=== PATIENT | female | born 1950 | race Caucasian/White ===

== ENCOUNTER → 2017-09-25 | Outpatient (CLI) | payer BC ==
[~2017-09-25] MED LIST: BSP/5 PO; CLON0.2T PO; DIPH25CA5 PO; LEVO200T6 PO; TIMO0.2528 OPL; ZIPR1CAP6 PO
== END | disposition home or self-care (01) ==
LOC: C.MAMM 14:58
PROVIDERS: ATTEND Internal Medicine Hematology & Oncology
DX: C50.919 Malignant neoplasm of unspecified site of unspecified female breast (principal)

== ENCOUNTER → 2017-10-02 | Outpatient (CLI) | payer BC ==
--- NOTE | 2017-10-02 19:32 | DIAGNOSTIC IMAGING REPORT ---
R FOOT MIN 3 VIEWS ROUTINE CLINICAL HISTORY: 67 years-old Female presenting with M25.571 PAIN IN RIGHT ANKLE AND JOINTS OF FOOT. TECHNIQUE: Frontal, oblique, and lateral views of the right foot were obtained. COMPARISON: None. FINDINGS: Screw fixation across the medial malleolus noted. Extensive degenerative changes in the ankle, hindfoot and hindfoot-midfoot junction. More mild degenerative changes evident at the first metatarsophalangeal joint. No acute fracture or malalignment. No radiographic soft tissue abnormality. IMPRESSION: 1. No acute osseous injury. 2. Extensive degenerative changes at the ankle, hindfoot, and hindfoot-junction. Please see separately dictated radiographs of the ankle. 3. Mild degenerative changes of the first metatarsophalangeal joint. Electronically signed by: Mateo Funez M.D. 10/02/2017 7:31 PM Dictated Date/Time: 10/02/2017 7:29 PM
--- NOTE | 2017-10-02 20:32 | DIAGNOSTIC IMAGING REPORT ---
R ANKLE MIN 3 VIEWS ROUTINE CLINICAL HISTORY: 67 years-old Female presenting with M25.571 PAIN IN RIGHT ANKLE AND JOINTS OF FOOT. TECHNIQUE: Frontal, mortise, and lateral views of the right ankle were obtained. COMPARISON: 06/10/2010. FINDINGS: Fixation across the medial malleolus unchanged. There has been significant interval worsening of degenerative changes of the ankle mortise with severe joint space loss and a [id number] appearance with subchondral sclerosis and cystic change. There is also significant degenerative change at the hindfoot and hindfoot-midfoot. Osteopenia suspected. No acute fracture or malalignment. No radiographic soft tissue abnormality. IMPRESSION: 1. 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 2. Allowing for suspected osteopenia, no acute osseous injury. Electronically signed by: Mateo Funez M.D. 10/02/2017 8:30 PM Dictated Date/Time: 10/02/2017 8:28 PM
== END | disposition home or self-care (01) ==
LOC: C.RAD 18:46
PROVIDERS: ATTEND Family Medicine
DX: M25.571 Pain in right ankle and joints of right foot (principal); M79.671 Pain in right foot; Z88.0 Allergy status to penicillin; Z88.1 Allergy status to other antibiotic agents

== ENCOUNTER 2021-02-16 14:55 | Observation (INO) ==
[2021-02-16 15:27] LABS: Hematocrit (blood only) 40.4 % (37-47); Hemoglobin 13.6 g/dL (12.0-16.0); Mean Corpuscular Hemoglobin 30.5 pg (25-34); Mean Corpuscular Hgb Conc 33.7 g/dL (32-36); Mean Corpuscular Volume 90.6 fL (80-100); Platelet Count 254 K/uL (130-400); RDW Standard Deviation 46.7 fL (36.4-46.3); Red Blood Count 4.46 M/uL (4.2-5.4); White Blood Count 6.19 K/uL (4.8-10.8)
[2021-02-16 15:31] LABS: iSTAT Hemoglobin 13.9 g/dl (12.0-16.0); iSTAT Ionized Calcium 1.26 mmol/l (1.12-1.32); iSTAT Potassium 4.6 mmol/L (3.3-5.0)
[2021-02-16 15:38] LABS: Partial Thromboplastin Time 25.1 Seconds (21.0-31.0); Prothrombin Time 9.8 Seconds (9.0-12.0)
[2021-02-16 15:48] LABS: Alanine Aminotransferase 22 U/L (12-78); BUN Creatinine Ratio 25.2 (10-20); Blood Urea Nitrogen 24 mg/dl (7-18); Calcium 10.3 mg/dl (8.5-10.1); Carbon Dioxide 26 mmol/L (21-32); Chloride 107 mmol/L (98-107); Creatinine Clr Calc Pharmacy 51.3 ml/min; Est GFR (African American) 69.4 ml/min; Est GFR (Non-African American) 59.8 ml/min; Glucose 93 mg/dl (70-99); Magnesium 2.2 mg/dl (1.8-2.4); Potassium 4.6 mmol/L (3.5-5.1); Sodium 137 mmol/L (136-145)
[2021-02-16 15:54] LABS: Albumin Globulin Ratio 1.4 (0.9-2); Alkaline Phosphatase 59 U/L (45-117); Aspartate Aminotransferase 12 U/L (15-37); Bilirubin,Total 0.5 mg/dl (0.2-1); Globulin 2.8 gm/dl (2.5-4.0); Total Protein 6.8 gm/dl (6.4-8.2)
--- NOTE | 2021-02-16 16:20 | Emergency Department Note ---
ED Visit Note I have seen and evaluated the patient. I have discussed the case with Dr. Lam and agree with his plan as documented. Sean Clemons MD PGY-3 . Resident Activity Tracking Resident Involvement: Resident Care Provided Care Provided: Adult ED
--- NOTE | 2021-02-16 16:42 | CT Scan Report ---
CT head/brain wo con CLINICAL HISTORY: 70 years-old Female with Stroke Alert. Acute strokelike symptoms TECHNIQUE: Multiple axial CT images of the head were obtained without contrast. A dose lowering tech nique was utilized adhering to the principles of ALARA. CT DOSE: 537.48 mGy.cm COMPARISON: Head CT 02/21/2015 FINDINGS: No acute intracranial hemorrhage, midline shift, intracranial mass, hydrocephalus, territorial ischem ia or abnormal extra-axial collection. Mild age-related involutional changes. White matter hypodensit ies suggest chronic microvascular ischemic disease. Subcentimeter hypodense focus of the right fronta l lobe centrum semiovale on image 19 series 2 is new from comparison. Senescent calcifications of the basal ganglia. The calvarium is intact. The paranasal sinuses, mastoid air cells, and middle ear cavities are clear . IMPRESSION: 1. No acute intracranial hemorrhage, midline shift or acute territorial infarct. 2. Subcentimeter hypodense focus of the right frontal lobe centrum semiovale is new from 02/21/2015 a nd is suggestive of a small age-indeterminate infarct. ACT 112: Negative or not required by law. The above report was generated using voice recognition software. It may contain grammatical, syntax o r spelling errors. Electronically signed by: Elliott Abernathy M.D. 02/16/2021 4:40 PM
--- NOTE | 2021-02-16 16:47 | Emergency Department Note ---
Impression & Plan TIA (transient ischemic attack) ED Provider Note NAME: BRAYAN DUNAWAY AGE: 70 SEX: F : 1950 ARRIVES VIA: Walk-In INFORMANT: Patient, ED PROVIDER(S): Daniel Lam DO CHIEF COMPLAINT: Decreased vision HPI: The patient is a 70-year-old female who presented to the emergency department for an evaluation of decreased vision in her right eye. She states that the symptoms began this morning at approximately 930 when she was doing yoga. She states she was not overly exerting herself. She denies having any chest pain. She denies having any headache. The patient first went to see her hub cutter. She was sent to the emergency department for further evaluation. The patient was felt to be suffering from a transient retinal artery occlusion. The patient at this time denies having any symptoms. She states her vision is clear. She denies having any fever. She is had no recent trauma. She did not see her family doctor for the symptoms. The patient states that she has been compliant with her usual outpatient medication regimen. She denies having any runny nose or injection in the eye. ROS: See above HPI for pertinent positives & negatives. A total of 10 systems reviewed and were otherwise negative. PAST MEDICAL HISTORY: See Below PAST SURGICAL HISTORY: See Below FAMILY HISTORY: See Below SOCIAL HISTORY: See Below HOME MEDICATIONS: See Below ALLERGIES: See Below VITALS: See Below PHYSICAL EXAMINATION: GENERAL: Patient is awake alert in no acute distress patient is resting comfortably and showing no signs of anxiety EYES: The conjunctivae are clear. The pupils were dilated and minimally reactive bilaterally. EARS, NOSE, MOUTH AND THROAT: The nose is without any evidence of any deformity. NECK: The neck is nontender and supple. RESPIRATORY: Normal respiratory effort is noted there is no evidence of wheezing rhonchi or rales CARDIOVASCULAR: Regular rate and rhythm noted there no murmurs rubs or gallops normal S1 normal S2. GASTROINTESTINAL: The abdomen is soft. Abdomen is nontender. MUSCULOSKELETAL/EXTREMITIES: There is no evidence of gross deformity full range of motion is noted in the hips and shoulders. SKIN: There is no obvious evidence of any rash. There are no petechiae, pallor or cyanosis noted. NEUROLOGIC: Patient is awake alert and oriented x3 strength is symmetric patellar reflexes are 2+ bilaterally MEDICAL DECISION MAKING: The patient is a 70-year-old female who presented to the emergency department for an evaluation of diminished vision in her right eye. The diminished vision was not prolonged and resolved spontaneously. She did go to see her eye doctor and after a dilated funduscopic exam she was sent to the emergency department for further evaluation and possible TIA. The patient's work-up did not reveal atrial fibrillation. Angiography of the head and neck did not reveal any significant stenosis. She was found to have signs of a stroke on the CT which was age-indeterminate. For this reason I do think this could be a high risk TIA. We discussed her case with the on-call neurologist, Dr. Pacheco. He did recommend further work-up and the patient was offered inpatient work-up for this. The patient was agreeable. The case was discussed with the on-call [facility] hospitalist. They will evaluate the patient in the emergency department for further management and disposition. Triage Nursing notes reviewed. Prior medical records reviewed Vital Signs: reviewed and remarkable for elevated blood pressure. Differential diagnosis: Conjunctivitis, trauma, corneal abrasion, hyphema, glaucoma, iritis, corneal ulcer, dendrite, CRAO, CRVO, vitreous detachment, retinal detachment, as well as other pathologies. ER treatment provided: See below Diagnostics interpreted by me: ECG: EKG was obtained in the emergency department. My interpretation is normal sinus rhythm at 74 bpm. There is no ectopy. There is no acute ST segment abnormalities noted. This was compared to a tracing from June 062015. No significant changes were noted. Cardiac Monitoring: An order was placed for continuous cardiac monitoring. The monitor shows a rate of 70 BPM with sinus rhythm. Laboratory studies: As stated above and show below. Imaging studies: See below Consultation(s): [facility] They will evaluate the patient in the emergency department. Past Med/Surg History Medical History (Updated 02/17/21 @ 09:31 by Jori Pacheco MD) History of orthopedic surgery Hypertension Hypothyroidism Mood disorder Pancreatitis UTI (urinary tract infection) Surgical History (Updated 02/16/21 @ 20:53 by Ling Clemons DO) History of back surgery History of cholecystectomy History of foot surgery History of rotator cuff surgery Social History Smoking Status: Never smoker Hx Alcohol Use: No Hx Substance Use: No Preferred Language: Lithuanian Communication Ability: Effective Production Planning Supervisor Required: No Beliefs That Will Affect Care: None Current Living Situation: Spouse Feels Safe at Home: Yes Assistive Devices: None Allergies Allergies Allergy/AdvReac Type Severity Reaction Status Date / Time Cephalosporins Allergy Intermediate "SWELLING" Verified 02/16/21 20:16 Penicillins Allergy Intermediate "SWELLING" Verified 02/16/21 20:16 clindamycin Allergy Unknown rash Verified 02/16/21 20:16 Home Meds Home Medications Medication Instructions Recorded Confirmed alendronate 70 mg tablet 70 mg PO WK 02/16/21 02/16/21 amlodipine 2.5 mg tablet 2.5 mg PO DAILY 02/16/21 02/16/21 anastrozole 1 mg tablet 1 mg PO DAILY 02/16/21 02/16/21 bupropion HCl 100 mg tablet 100 mg PO BID 02/16/21 02/16/21 buspirone 30 mg tablet 30 mg PO BID 02/16/21 02/16/21 citalopram 40 mg tablet 80 mg PO QAM 02/16/21 02/16/21 levothyroxine 100 mcg tablet 100 mcg PO DAILY 02/16/21 02/16/21 meloxicam 15 mg tablet 15 mg PO DAILY 02/16/21 02/16/21 metformin 850 mg tablet 850 mg PO BID 02/16/21 02/16/21 risperidone 1 mg tablet 1 mg PO QAM 02/16/21 02/16/21 risperidone 1 mg tablet 2 mg PO QPM 02/16/21 02/16/21 ziprasidone HCl 80 mg capsule 80 mg PO .DAILY WITH DAIJA MEAL 02/16/21 02/16/21 Previous Rx's Medication Instructions Recorded aspirin 81 mg tablet,delayed 81 mg PO DAILY #30 tab 02/17/21 release (Aspirin Low Dose) Results & Data (ED) Vital Signs Vital Signs - 24 hr 02/16/21 16:57 02/16/21 18:00 02/16/21 19:27 Temperature Temperature Source Pulse Rate [Right Finger] 70 70 80 Pulse Rhythm [Right Finger] Regular Regular Regular Pulse Strength [Right Finger] Normal Normal Normal Respiratory Rate 18 18 17 Respiratory Effort / Characteristics Non-Labored Non-Labored Non-Labored Respiratory Depth Normal Normal Normal Respiratory Pattern Regular Regular Regular Blood Pressure [Right Arm] 178/85 H 177/85 H 157/90 H Blood Pressure Mean [Right Arm] 116 115 112 Blood Pressure Position [Right Arm] Lying Lying Lying Pulse Oximetry 100 98 99 Oxygen Delivery Method Room Air Room Air Room Air 02/16/21 20:06 Temperature 36.8 C Temperature Source Oral Pulse Rate [Right Finger] 79 Pulse Rhythm [Right Finger] Pulse Strength [Right Finger] Respiratory Rate 21 Respiratory Effort / Characteristics Respiratory Depth Respiratory Pattern Blood Pressure [Right Arm] 175/76 H Blood Pressure Mean [Right Arm] 109 Blood Pressure Position [Right Arm] Pulse Oximetry 97 Oxygen Delivery Method Room Air Home Medications Current Medication List: was personally reviewed by me Laboratory Data Attestation: I reviewed the patient's lab results. Result diagrams: 02/17/21 05:49 02/17/21 05:49 Lab Results 02/16/21 02/16/21 02/16/21 Range/Units 15:16 15:16 15:16 WBC 6.19 (4.8-10.8) K/uL RBC 4.46 (4.2-5.4) M/uL Hgb 13.6 (12.0-16.0) g/dL POC Hgb (12.0-16.0) g/dl Hct 40.4 (37-47) % POC Hct (37-47) % MCV 90.6 (80-100) fL MCH 30.5 (25-34) pg MCHC 33.7 (32-36) g/dL RDW Std Deviation 46.7 H (36.4-46.3) fL RDW Coeff of Devyn 14.0 (11.5-14.5) % Plt Count 254 (130-400) K/uL MPV 10.0 (7.4-10.4) fL ESR (0-30) mm/hr PT 9.8 (9.0-12.0) Seconds INR 1.0 (0.9-1.1) APTT 25.1 (21.0-31.0) Seconds PTT Ratio 1.0 POC Sodium (135-144) mmol/L Sodium 137 (136-145) mmol/L POC Potassium (3.3-5.0) mmol/L Potassium 4.6 (3.5-5.1) mmol/L POC Chloride (101-112) mmol/L Chloride 107 (98-107) mmol/L Carbon Dioxide 26 (21-32) mmol/L POC Total CO2 (24-31) mmol/L Anion Gap 5.0 (3-11) POC Anion Gap (16-25) mmol/L POC BUN (7-18) mg/dl BUN 24 H (7-18) mg/dl Creatinine 0.95 (0.6-1.2) mg/dl POC Creatinine (0.6-1.3) mg/dl Est Cr Clr Drug Dosing 51.3 ml/min Est GFR ( Amer) 69.4 ml/min Est GFR (Non-Af Amer) 59.8 ml/min BUN/Creatinine Ratio 25.2 H (10-20) Glucose 93 (70-99) mg/dl POC Glucose (other) (70-99) mg/dl Calcium 10.3 H (8.5-10.1) mg/dl POC Ioniz Calcium Jacqui (1.12-1.32) mmol/l Magnesium 2.2 (1.8-2.4) mg/dl Total Bilirubin 0.5 (0.2-1) mg/dl AST 12 L (15-37) U/L ALT 22 (12-78) U/L Alkaline Phosphatase 59 (45-117) U/L Troponin I < 0.015 (0-0.045) ng/ml C-Reactive Protein (0-0.29) mg/dl Total Protein 6.8 (6.4-8.2) gm/dl Albumin 4.0 (3.4-5.0) gm/dl Globulin 2.8 (2.5-4.0) gm/dl Albumin/Globulin Ratio 1.4 (0.9-2) COVID-19 Eval Order SARS-CoV-2 (PCR) (Negative) 02/16/21 02/16/21 02/16/21 Range/Units 15:20 16:15 16:15 WBC (4.8-10.8) K/uL RBC (4.2-5.4) M/uL Hgb (12.0-16.0) g/dL POC Hgb 13.9 (12.0-16.0) g/dl Hct (37-47) % POC Hct 41 (37-47) % MCV (80-100) fL MCH (25-34) pg MCHC (32-36) g/dL RDW Std Deviation (36.4-46.3) fL RDW Coeff of Devyn (11.5-14.5) % Plt Count (130-400) K/uL MPV (7.4-10.4) fL ESR 5 (0-30) mm/hr PT (9.0-12.0) Seconds INR (0.9-1.1) APTT (21.0-31.0) Seconds PTT Ratio POC Sodium 138 (135-144) mmol/L Sodium (136-145) mmol/L POC Potassium 4.6 (3.3-5.0) mmol/L Potassium (3.5-5.1) mmol/L POC Chloride 102 (101-112) mmol/L Chloride (98-107) mmol/L Carbon Dioxide (21-32) mmol/L POC Total CO2 24 (24-31) mmol/L Anion Gap (3-11) POC Anion Gap 17.0 (16-25) mmol/L POC BUN 23 H (7-18) mg/dl BUN (7-18) mg/dl Creatinine (0.6-1.2) mg/dl POC Creatinine 1.0 (0.6-1.3) mg/dl Est Cr Clr Drug Dosing ml/min Est GFR ( Amer) ml/min Est GFR (Non-Af Amer) ml/min BUN/Creatinine Ratio (10-20) Glucose (70-99) mg/dl POC Glucose (other) 90 (70-99) mg/dl Calcium (8.5-10.1) mg/dl POC Ioniz Calcium Jacqui 1.26 (1.12-1.32) mmol/l Magnesium (1.8-2.4) mg/dl Total Bilirubin (0.2-1) mg/dl AST (15-37) U/L ALT (12-78) U/L Alkaline Phosphatase (45-117) U/L Troponin I (0-0.045) ng/ml C-Reactive Protein < 0.29 (0-0.29) mg/dl Total Protein (6.4-8.2) gm/dl Albumin (3.4-5.0) gm/dl Globulin (2.5-4.0) gm/dl Albumin/Globulin Ratio (0.9-2) COVID-19 Eval Order SARS-CoV-2 (PCR) (Negative) 02/16/21 02/16/21 Range/Units 17:50 17:50 WBC (4.8-10.8) K/uL RBC (4.2-5.4) M/uL Hgb (12.0-16.0) g/dL POC Hgb (12.0-16.0) g/dl Hct (37-47) % POC Hct (37-47) % MCV (80-100) fL MCH (25-34) pg MCHC (32-36) g/dL RDW Std Deviation (36.4-46.3) fL RDW Coeff of Devyn (11.5-14.5) % Plt Count (130-400) K/uL MPV (7.4-10.4) fL ESR (0-30) mm/hr PT (9.0-12.0) Seconds INR (0.9-1.1) APTT (21.0-31.0) Seconds PTT Ratio POC Sodium (135-144) mmol/L Sodium (136-145) mmol/L POC Potassium (3.3-5.0) mmol/L Potassium (3.5-5.1) mmol/L POC Chloride (101-112) mmol/L Chloride (98-107) mmol/L Carbon Dioxide (21-32) mmol/L POC Total CO2 (24-31) mmol/L Anion Gap (3-11) POC Anion Gap (16-25) mmol/L POC BUN (7-18) mg/dl BUN (7-18) mg/dl Creatinine (0.6-1.2) mg/dl POC Creatinine (0.6-1.3) mg/dl Est Cr Clr Drug Dosing ml/min Est GFR ( Amer) ml/min Est GFR (Non-Af Amer) ml/min BUN/Creatinine Ratio (10-20) Glucose (70-99) mg/dl POC Glucose (other) (70-99) mg/dl Calcium (8.5-10.1) mg/dl POC Ioniz Calcium Jacqui (1.12-1.32) mmol/l Magnesium (1.8-2.4) mg/dl Total Bilirubin (0.2-1) mg/dl AST (15-37) U/L ALT (12-78) U/L Alkaline Phosphatase (45-117) U/L Troponin I (0-0.045) ng/ml C-Reactive Protein (0-0.29) mg/dl Total Protein (6.4-8.2) gm/dl Albumin (3.4-5.0) gm/dl Globulin (2.5-4.0) gm/dl Albumin/Globulin Ratio (0.9-2) COVID-19 Eval Order Covid19 at [facility] SARS-CoV-2 (PCR) NEGATIVE (Negative) Administered Medications Aspirin (Aspirin 81 Mg Ectab) 81 mg PO DAILY [facility]ANG Stop: 03/19/21 08:59 Last Admin: 02/17/21 09:41 Dose: 81 mg Documented by: [id number] Cosigned by: [id number] Atorvastatin Calcium (Atorvastatin 40 Mg Tab) 40 mg PO QAM [facility] Stop: 03/19/21 08:59 Last Admin: 02/17/21 09:40 Dose: 40 mg Documented by: [id number] Cosigned by: [id number] Buspirone HCl (Buspirone 15 Mg Tab) 30 mg PO BID [facility] Stop: 03/18/21 22:07 Last Admin: 02/17/21 09:39 Dose: 30 mg Documented by: [id number] Cosigned by: [id number] Admin: 02/16/21 23:26 Dose: 30 mg Documented by: [id number] Citalopram Hydrobromide (Citalopram 40 Mg Tab) 80 mg PO QAM [facility] Stop: 03/19/21 08:59 Last Admin: 02/17/21 09:40 Dose: 80 mg Documented by: [id number] Cosigned by: [id number] Levothyroxine Sodium (Levothyroxine Sodium 100 Mcg Tablet) 100 mcg PO DAILYBB [facility] Stop: 03/19/21 06:29 Last Admin: 02/17/21 05:22 Dose: 100 mcg Documented by: [id number] Risperidone (Risperidone 1 Mg Tablet) 1 mg PO QAM [facility] Stop: 03/19/21 08:59 Last Admin: 02/17/21 09:40 Dose: 1 mg Documented by: [id number] Cosigned by: [id number] Risperidone (Risperidone 2 Mg Tablet) 2 mg PO QPM [facility] Stop: 03/18/21 22:07 Last Admin: 02/16/21 23:26 Dose: 2 mg Documented by: [id number] Discontinued Medications Aspirin (Aspirin Chew 324 Mg) 324 mg PO NOW STA Stop: 02/16/21 18:34 Last Admin: 02/16/21 19:26 Dose: 324 mg Documented by: [id number] Gadobutrol (Gadobutrol 65ml Vial) 7.6 ml IV ONCE ONE Stop: 02/16/21 23:06 Last Admin: 02/16/21 23:05 Dose: 7.6 ml Documented by: [id number] Influenza Virus Vaccine (Influenza Vaccine-High Dose (Fluzone-Hd) Pf 65+ 0.7 Ml Syr) 0.7 ml IM .ONCE ONE Stop: 02/17/21 08:01 Last Admin: 02/17/21 12:04 Dose: 0.7 ml Documented by: [id number] Ioversol (Optiray 320 125ml) 116 ml IV ONCE ONE Stop: 02/16/21 17:09 Last Admin: 02/16/21 17:08 Dose: 116 ml Documented by: [id number] Pneumococcal Polyvalent Vaccine (Pneumococcal Polysaccharide Vaccine 25mcg/0.5ml Vial/Syr) 25 mcg IM .ONCE ONE Stop: 02/17/21 08:01 Last Admin: 02/17/21 12:05 Dose: 25 mcg Documented by: [id number] Imaging Data Radiologist's Impression: Chest X-Ray 02/16/21 15:06 XR chest 1V portable HISTORY: 70 years-old Female stroke alert acute strokelike symptoms COMPARISON: Chest radiograph 06/06/2015 TECHNIQUE: Portable AP view of the chest FINDINGS: Cardiomediastinal and hilar silhouettes are within normal limits. No pneumothorax, pleural effusion, airspace consolidation or overt pulmonary edema. Degenerative changes of the shoulders and spine. Surgical clips project over the chest. Cervical spinal fusion hardware. IMPRESSION: No acute process. ACT 112: Negative or not required by law. The above report was generated using voice recognition software. It may contain grammatical, syntax or spelling errors. Electronically signed by: Elliott Abernathy M.D. 02/16/2021 4:[address] 02/16/21 15:06 CT head/brain wo con CLINICAL HISTORY: 70 years-old Female with Stroke Alert. Acute strokelike symptoms TECHNIQUE: Multiple axial CT images of the head were obtained without contrast. A dose lowering technique was utilized adhering to the principles of ALARA. CT DOSE: 537.48 mGy.cm COMPARISON: Head CT 02/21/2015 FINDINGS: No acute intracranial hemorrhage, midline shift, intracranial mass, hydrocephalus, territorial ischemia or abnormal extra-axial collection. Mild age-related involutional changes. White matter hypodensities suggest chronic microvascular ischemic disease. Subcentimeter hypodense focus of the right frontal lobe centrum semiovale on image 19 series 2 is new from comparison. Senescent calcifications of the basal ganglia. The calvarium is intact. The paranasal sinuses, mastoid air cells, and middle ear cavities are clear. IMPRESSION: 1. No acute intracranial hemorrhage, midline shift or acute territorial infarct. 2. Subcentimeter hypodense focus of the right frontal lobe centrum semiovale is new from 02/21/2015 and is suggestive of a small age-indeterminate infarct. ACT 112: Negative or not required by law. The above report was generated using voice recognition software. It may contain grammatical, syntax or spelling errors. Electronically signed by: Elliott Abernathy M.D. 02/16/2021 4:40 PM Head CTA 02/16/21 16:42 HEAD & NECK CTA HISTORY: Temporary Right eye blindness. TECHNIQUE: Multiaxial CT images of the head were performed following the intravenous administration of contrast to evaluate the major cerebral vessels. Multiaxial CT images of the neck were also performed following the intravenous administration of contrast to evaluate the major cervical vessels. Maximum intensity projection images were also obtained. A dose lowering technique was utilized adhering to the principles of ALARA. COMPARISON: Head CT 02/16/2021. FINDINGS: Please refer to the same day head CT for further evaluation of the brain pa renchyma. Visualized intracranial internal carotid arteries, distal vertebral arteries, and basilar artery are widely patent. There is no significant stenosis, occlusion, or aneurysm seen within the bilateral ACAs, MCAs, or plastics process hand. The major dural venous sinuses are patent. Mild calcified plaque within the bilateral carotid siphons. The aortic arch and proximal great vessels are widely patent. There is no significant stenosis, occlusion, or dissection identified within the bilateral common carotid, internal carotid, or vertebral arteries. Cervical spinal fusion hardware is noted. Moderate right and mild left carotid bifurcation calcification. IMPRESSION: 1. No significant stenosis, occlusion, or aneurysm within the [place]. 2. No significant stenosis, occlusion, or dissection identified within the car otid or vertebral arteries. 3. Please refer to the same day head CT for further evaluation of the brain parenchyma. ACT 112: Negative or not required by law. Electronically signed by: Umer Chaves M.D. 02/16/2021 5:13 PM Neck CTA 02/16/21 16:42 HEAD & NECK CTA HISTORY: Temporary Right eye blindness. TECHNIQUE: Multiaxial CT images of the head were performed following the intravenous administration of contrast to evaluate the major cerebral vessels. Multiaxial CT images of the neck were also performed following the intravenous administration of contrast to evaluate the major cervical vessels. Maximum intensity projection images were also obtained. A dose lowering technique was utilized adhering to the principles of ALARA. COMPARISON: Head CT 02/16/2021. FINDINGS: Please refer to the same day head CT for further evaluation of the brain parenchyma. Visualized intracranial internal carotid arteries, distal vertebral arteries, and basilar artery are widely patent. There is no significant stenosis, occlusion, or aneurysm seen within the bilateral ACAs, MCAs, or plastics process hand. The major dural venous sinuses are patent. Mild calcified plaque within the bilateral carotid siphons. The aortic arch and proximal great vessels are widely patent. There is no significant stenosis, occlusion, or dissection identified within the bilateral common carotid, internal carotid, or vertebral arteries. Cervical spinal fusion hardware is noted. Moderate right and mild left carotid bifurcation calcification. IMPRESSION: 1. No significant stenosis, occlusion, or aneurysm within the [place]. 2. No significant stenosis, occlusion, or dissection identified within the carotid or vertebral arteries. 3. Please refer to the same day head CT for further evaluation of the brain parenchyma. ACT 112: Negative or not required by law. Electronically signed by: Umer Chaves M.D. 02/16/2021 5:13 PM Discharge Plan Visit Data Chief Complaint: Visual Disturbance Stated Complaint: TRANSIENT RETINAL ARTERY OCCLUSION, RT EYE ED Provider: Daniel Lam ED Midlevel Provider: Sean Clemons I. Discharge Problem: TIA (transient ischemic attack) Patient Disposition: Admitted As Inpatient Discharge Instructions Interventions: ED Discharge Assessment Last Done: 02/16/21 21:22
[2021-02-16] MEDS ORDERED: OPTIRAY 320 125ml IV ONE (17:08)
--- NOTE | 2021-02-16 17:15 | CT Scan Report ---
HEAD & NECK CTA HISTORY: Temporary Right eye blindness. TECHNIQUE: Multiaxial CT images of the head were performed following the intravenous administration o f contrast to evaluate the major cerebral vessels. Multiaxial CT images of the neck were also perform ed following the intravenous administration of contrast to evaluate the major cervical vessels. Maxim um intensity projection images were also obtained. A dose lowering technique was utilized adhering to the principles of ALARA. COMPARISON: Head CT 02/16/2021. FINDINGS: Please refer to the same day head CT for further evaluation of the brain parenchyma. Visualized intra cranial internal carotid arteries, distal vertebral arteries, and basilar artery are widely patent. T here is no significant stenosis, occlusion, or aneurysm seen within the bilateral ACAs, MCAs, or staff trainer . The major dural venous sinuses are patent. Mild calcified plaque within the bilateral carotid sipho ns. The aortic arch and proximal great vessels are widely patent. There is no significant stenosis, occ lusion, or dissection identified within the bilateral common carotid, internal carotid, or vertebral arteries. Cervical spinal fusion hardware is noted. Moderate right and mild left carotid bifurcation calcification. IMPRESSION: 1. No significant stenosis, occlusion, or aneurysm within the [place]. 2. No significant stenosis, occlusion, or dissection identified within the carotid or vertebral arter ies. 3. Please refer to the same day head CT for further evaluation of the brain parenchyma. ACT 112: Negative or not required by law. Electronically signed by: Umer Chaves M.D. 02/16/2021 5:13 PM
--- NOTE | 2021-02-16 17:15 | CT Scan Report ---
HEAD & NECK CTA HISTORY: Temporary Right eye blindness. TECHNIQUE: Multiaxial CT images of the head were performed following the intravenous administration o f contrast to evaluate the major cerebral vessels. Multiaxial CT images of the neck were also perform ed following the intravenous administration of contrast to evaluate the major cervical vessels. Maxim um intensity projection images were also obtained. A dose lowering technique was utilized adhering to the principles of ALARA. COMPARISON: Head CT 02/16/2021. FINDINGS: Please refer to the same day head CT for further evaluation of the brain parenchyma. Visualized intra cranial internal carotid arteries, distal vertebral arteries, and basilar artery are widely patent. T here is no significant stenosis, occlusion, or aneurysm seen within the bilateral ACAs, MCAs, or chip silo tender . The major dural venous sinuses are patent. Mild calcified plaque within the bilateral carotid sipho ns. The aortic arch and proximal great vessels are widely patent. There is no significant stenosis, occ lusion, or dissection identified within the bilateral common carotid, internal carotid, or vertebral arteries. Cervical spinal fusion hardware is noted. Moderate right and mild left carotid bifurcation calcification. IMPRESSION: 1. No significant stenosis, occlusion, or aneurysm within the [place] of [place]. 2. No significant stenosis, occlusion, or dissection identified within the carotid or vertebral arter ies. 3. Please refer to the same day head CT for further evaluation of the brain parenchyma. ACT 112: Negative or not required by law. Electronically signed by: Umer Chaves M.D. 02/16/2021 5:13 PM
[2021-02-16 17:23] LABS: Troponin I < 0.015 ng/ml (0-0.045)
[2021-02-16] MEDS ORDERED: ASPIRIN CHEW 324 MG PO STA (18:33)
--- NOTE | 2021-02-16 20:14 | History & Physical Report ---
Date of Service February 16, 2021 Assessment & Plan (1) Transient visual loss: Plan: 70yo female with history of HTN, (no history of DM although patient is on Metformin as an outpatient) presenting with transient painless monocular vision loss which occurred earlier today. Vision has returned and patient is back to baseline. No additional complaints at this time. Neurological exam is unremarkable. CT of the head with subcentimeter hypodense focus of the right fr ontal lobe centrum semiovale which is new from 02/2015 suggestive of a small age-indeterminate infarct. Visual loss concerning for transient retinal artery occlusion -Observation to medical with telemetry -NIHSS, Neuro checks as needed -Check MRI and 2D echo to complete stroke workup -Check A1C, Lipids, ESR and CRP -Neuro consultation per protocol appreciated -Initiate ASA 81mg po daily and Atorvastatin 40mg po daily (2) Hypertension: Plan: Blood pressure mildly elevated. Patient is on Amlodipine at home which was started in the last month -Will hold to allow for permissive hypertension -Continue to monitor BP (3) Mood disorder: Plan: Chronic. Well controlled -Continue Bupropion 100mg po BID -Continue Buspirone 30mg po BID -Continue Citalopram 80mg po qAM -Continue risperidone -Continue Ziprasidone (4) Hypothyroidism: Plan: Chronic -Continue Synthroid 100mcg po daily Plan: F/E/N - Heplock. Electrolytes WNL. Heart healthy diet as tolerated Ppx - SCDs Code - Full per discussion with patient Dispo - Observation to medical with telemetry History of Present Illness Chief Complaint: transient visual deficit Primary Care Provider: Daniel Jackson MD Gina Smith is a 70 yo female presenting with transient visual loss of the right eye. Patient was practicing yoga this morning after which she developed painless visual loss of her right eye. She states she was able to see fragments of images and a little bit of light. She denies pain in the eye or with eye movement. Denies redness, tearing, numbness, tingling, facial droop, headache. She denies jaw pain or jaw claudication. Patient was seen at [facility] today with this complaint. Ocular exam revealed constricted artery coming superior temporaraly out of the ONH that is very constricted. Concern for transient central retinal artery occlusion or ischemic optic neuropathy in the right eye. Her vision has since improved to normal. Symptoms lasted approximately 8 hours. No additional complaints at this time Patient is vaccinated against Covid-19. Covid testing is NEGATIVE ER Course: ASA 324mg po Allergies Allergy/AdvReac Type Severity Reaction Status Date / Time Cephalosporins Allergy Intermediate "SWELLING" Verified 02/16/21 20:16 Penicillins Allergy Intermediate "SWELLING" Verified 02/16/21 20:16 clindamycin Allergy Unknown rash Verified 02/16/21 20:16 Home Medications Medication Instructions Recorded Confirmed Type alendronate 70 mg tablet 70 mg PO WK 02/16/21 02/16/21 History amlodipine 2.5 mg tablet 2.5 mg PO DAILY 02/16/21 02/16/21 History anastrozole 1 mg tablet 1 mg PO DAILY 02/16/21 02/16/21 History bupropion HCl 100 mg tablet 100 mg PO BID 02/16/21 02/16/21 History buspirone 30 mg tablet 30 mg PO BID 02/16/21 02/16/21 History citalopram 40 mg tablet 80 mg PO QAM 02/16/21 02/16/21 History levothyroxine 100 mcg tablet 100 mcg PO DAILY 02/16/21 02/16/21 History meloxicam 15 mg tablet 15 mg PO DAILY 02/16/21 02/16/21 History metformin 850 mg tablet 850 mg PO BID 02/16/21 02/16/21 History risperidone 1 mg tablet 1 mg PO QAM 02/16/21 02/16/21 History risperidone 1 mg tablet 2 mg PO QPM 02/16/21 02/16/21 History ziprasidone HCl 80 mg capsule 80 mg PO .DAILY WITH DAIJA MEAL 02/16/21 02/16/21 History Past Med/Surg History Medical History (Updated 02/16/21 @ 20:36 by Ling Clemons DO) History of orthopedic surgery Hypertension Hypothyroidism Mood disorder Pancreatitis UTI (urinary tract infection) Surgical History (Updated 02/16/21 @ 20:53 by Ling Clemons DO) History of back surgery History of cholecystectomy History of foot surgery History of rotator cuff surgery Social History Smoking Status: Never smoker Hx Alcohol Use: No Hx Substance Use: No Preferred Language: Mongolian Communication Ability: Effective Electrolysis Needle Operator Required: No Beliefs That Will Affect Care: None Current Living Situation: Spouse Other Information That Helps Us Care for You: No Feels Safe at Home: Yes Safety Concerns: Feels Safe At This Time Assistive Devices: Glasses Review of Systems Review of Systems: All systems reviewed & are unremarkable except as noted in HPI & below Physical Exam Physical Exam: General: patient resting comfortably, NAD, non-toxic in appearance, AA&O x 4 Skin: warm, dry, intact, no rashes or lesions HEENT: NC/AT, PERRL, EOMI, anicteric sclera, conjunctiva without injection, external ear normal to inspection and nontender, nares patent, moist mucus membranes, dentition intact, no oropharyngeal lesions, neck supple, trachea midline, no LAD, no thyromegaly, no JVD Undilated fundoscopic exam at bedside with normal optic disc and vasculature Heart: +S1/S2, regular, no m/r/g Lungs: equal air entry bilaterally, no rales/rhonchi/wheezes Abd: +BS, soft, NT/ND, no masses/organomegaly/ascites Ext: warm, 2+ pulses in UE/LE bilaterally, no clubbing/cyanosis or edema Neuro: CN II - XII grossly intact, no facial droop, patient AA&O x 4, speech intact, sensation to light touch mildly diminished in lateral portion of left leg as well as slightly decreased strength of the left leg which is consistent with patient's baseline secondary to back pain, moving all extremities on command with equal strength 5/5 Results & Data Results & Data ([facility]) Vital Signs (Past 12 Hours) Vital Signs Temp Pulse Pulse Resp BP BP Pulse Ox 02/16/21 20:06 36.8 C 79 21 175/76 H 97 02/16/21 19:27 80 17 157/90 H 99 02/16/21 18:00 70 18 177/85 H 98 02/16/21 16:57 70 18 178/85 H 100 02/16/21 15:06 75 18 98 02/16/21 15:02 36.6 C 76 20 153/82 H 98 02/16/21 14:57 74 18 98 Laboratory Results Laboratory Results WBC 6.19 K/uL (4.8-10.8) 02/16/21 15:16 RBC 4.46 M/uL (4.2-5.4) 02/16/21 15:16 Hgb 13.6 g/dL (12.0-16.0) 02/16/21 15:16 POC Hgb 13.9 g/dl (12.0-16.0) 02/16/21 15:20 Hct 40.4 % (37-47) 02/16/21 15:16 POC Hct 41 % (37-47) 02/16/21 15:20 MCV 90.6 fL (80-100) 02/16/21 15:16 MCH 30.5 pg (25-34) 02/16/21 15:16 MCHC 33.7 g/dL (32-36) 02/16/21 15:16 RDW Std Deviation 46.7 fL (36.4-46.3) H 02/16/21 15:16 RDW Coeff of Devyn 14.0 % (11.5-14.5) 02/16/21 15:16 Plt Count 254 K/uL (130-400) 02/16/21 15:16 MPV 10.0 fL (7.4-10.4) 02/16/21 15:16 PT 9.8 Seconds (9.0-12.0) 02/16/21 15:16 INR 1.0 (0.9-1.1) 02/16/21 15:16 APTT 25.1 Seconds (21.0-31.0) 02/16/21 15:16 PTT Ratio 1.0 02/16/21 15:16 POC Sodium 138 mmol/L (135-144) 02/16/21 15:20 Sodium 137 mmol/L (136-145) 02/16/21 15:16 POC Potassium 4.6 mmol/L (3.3-5.0) 02/16/21 15:20 Potassium 4.6 mmol/L (3.5-5.1) 02/16/21 15:16 POC Chloride 102 mmol/L (101-112) 02/16/21 15:20 Chloride 107 mmol/L (98-107) 02/16/21 15:16 Carbon Dioxide 26 mmol/L (21-32) 02/16/21 15:16 POC Total CO2 24 mmol/L (24-31) 02/16/21 15:20 Anion Gap 5.0 (3-11) 02/16/21 15:16 POC Anion Gap 17.0 mmol/L (16-25) 02/16/21 15:20 POC BUN 23 mg/dl (7-18) H 02/16/21 15:20 BUN 24 mg/dl (7-18) H 02/16/21 15:16 Creatinine 0.95 mg/dl (0.6-1.2) 02/16/21 15:16 POC Creatinine 1.0 mg/dl (0.6-1.3) 02/16/21 15:20 Est Cr Clr Drug Dosing 51.3 ml/min 02/16/21 15:16 Est GFR ( Amer) 69.4 ml/min 02/16/21 15:16 Est GFR (Non-Af Amer) 59.8 ml/min 02/16/21 15:16 BUN/Creatinine Ratio 25.2 (10-20) H 02/16/21 15:16 Glucose 93 mg/dl (70-99) 02/16/21 15:16 POC Glucose (other) 90 mg/dl (70-99) 02/16/21 15:20 Calcium 10.3 mg/dl (8.5-10.1) H 02/16/21 15:16 POC Ioniz Calcium Jacqui 1.26 mmol/l (1.12-1.32) 02/16/21 15:20 Magnesium 2.2 mg/dl (1.8-2.4) 02/16/21 15:16 Total Bilirubin 0.5 mg/dl (0.2-1) 02/16/21 15:16 AST 12 U/L (15-37) L 02/16/21 15:16 ALT 22 U/L (12-78) 02/16/21 15:16 Alkaline Phosphatase 59 U/L (45-117) 02/16/21 15:16 Troponin I < 0.015 ng/ml (0-0.045) 02/16/21 15:16 Total Protein 6.8 gm/dl (6.4-8.2) 02/16/21 15:16 Albumin 4.0 gm/dl (3.4-5.0) 02/16/21 15:16 Globulin 2.8 gm/dl (2.5-4.0) 02/16/21 15:16 Albumin/Globulin Ratio 1.4 (0.9-2) 02/16/21 15:16 COVID-19 Eval Order Covid19 at [facility] 02/16/21 17:50 SARS-CoV-2 (PCR) NEGATIVE (Negative) 02/16/21 17:50 Impressions Chest X-Ray 02/16/21 15:06 XR chest 1V portable HISTORY: 70 years-old Female stroke alert acute strokelike symptoms COMPARISON: Chest radiograph 06/06/2015 TECHNIQUE: Portable AP view of the chest FINDINGS: Cardiomediastinal and hilar silhouettes are within normal limits. No pneumothorax, pleural effusion, airspace consolidation or overt pulmonary edema. Degenerative changes of the shoulders and spine. Surgical clips project over the chest. Cervical spinal fusion hardware. IMPRESSION: No acute process. ACT 112: Negative or not required by law. The above report was generated using voice recognition software. It may contain grammatical, syntax or spelling errors. Electronically signed by: Elliott Abernathy M.D. 02/16/2021 4:[address] 02/16/21 15:06 CT head/brain wo con CLINICAL HISTORY: 70 years-old Female with Stroke Alert. Acute strokelike symptoms TECHNIQUE: Multiple axial CT images of the head were obtained without contrast. A dose lowering technique was utilized adhering to the principles of ALARA. CT DOSE: 537.48 mGy.cm COMPARISON: Head CT 02/21/2015 FINDINGS: No acute intracranial hemorrhage, midline shift, intracranial mass, hydrocephalus, territorial ischemia or abnormal extra-axial collection. Mild age-related involutional changes. White matter hypodensities suggest chronic microvascular ischemic disease. Subcentimeter hypodense focus of the right frontal lobe centrum semiovale on image 19 series 2 is new from comparison. Senescent calcifications of the basal ganglia. The calvarium is intact. The paranasal sinuses, mastoid air cells, and middle ear cavities are clear. IMPRESSION: 1. No acute intracranial hemorrhage, midline shift or acute territorial infarct. 2. Subcentimeter hypodense focus of the right frontal lobe centrum semiovale is new from 02/21/2015 and is suggestive of a small age-indeterminate infarct. ACT 112: Negative or not required by law. The above report was generated using voice recognition software. It may contain grammatical, syntax or spelling errors. Electronically signed by: Elliott Abernathy M.D. 02/16/2021 4:40 PM Head CTA 02/16/21 16:42 HEAD & NECK CTA HISTORY: Temporary Right eye blindness. TECHNIQUE: Multiaxial CT images of the head were performed following the intravenous administration of contrast to evaluate the major cerebral vessels. Multiaxial CT images of the neck were also performed following the intravenous administration of contrast to evaluate the major cervical vessels. Maximum intensity projection images were also obtained. A dose lowering technique was utilized adhering to the principles of ALARA. COMPARISON: Head CT 02/16/2021. FINDINGS: Please refer to the same day head CT for further evaluation of the brain parenchyma. Visualized intracranial internal carotid arteries, distal vertebral arteries, and basilar artery are widely patent. There is no significant stenosis , occlusion, or aneurysm seen within the bilateral ACAs, MCAs, or tappet adjuster. The major dural venous sinuses are patent. Mild calcified plaque within the bilateral carotid siphons. The aortic arch and proximal great vessels are widely patent. There is no significant stenosis, occlusion, or dissection identified within the bilateral common carotid, internal carotid, or vertebral arteries. Cervical spinal fusion hardware is noted. Moderate right and mild left carotid bifurcation calcification. IMPRESSION: 1. No significant stenosis, occlusion, or aneurysm within the [place] of [place]. 2. No significant stenosis, occlusion, or dissection identified within the carotid or vertebral arteries. 3. Please refer to the same day head CT for further evaluation of the brain parenchyma. ACT 112: Negative or not required by law. Electronically signed by: Umer Chaves M.D. 02/16/2021 5:13 PM Neck CTA 02/16/21 16:42 HEAD & NECK CTA HISTORY: Temporary Right eye blindness. TECHNIQUE: Multiaxial CT images of the head were performed following the intravenous administration of contrast to evaluate the major cerebral vessels. Multiaxial CT images of the neck were also performed following the intravenous administration of contrast to evaluate the major cervical vessels. Maximum intensity projection images were also obtained. A dose lowering technique was utilized adhering to the principles of ALARA. COMPARISON: Head CT 02/16/2021. FINDINGS: Please refer to the same day head CT for further evaluation of the brain parenchyma. Visualized intracranial internal carotid arteries, distal vertebral arteries, and basilar artery are widely patent. There is no significant stenosis, occlusion, or aneurysm seen within the bilateral ACAs, MCAs, or tappet adjuster. The major dural venous sinuses are patent. Mild calcified plaque within the bilateral carotid siphons. The aortic arch and proximal great vessels are widely patent. There is no significant stenosis, occlusion, or dissection identified within the bilateral common carotid, internal carotid, or vertebral arteries. Cervical spinal fusion hardware is noted. Moderate right and mild left carotid bifurcation calcification. IMPRESSION: 1. No significant stenosis, occlusion, or aneurysm within the [place]. 2. No significant stenosis, occlusion, or dissection identified within the carotid or vertebral arteries. 3. Please refer to the same day head CT for further evaluation of the brain parenchyma. ACT 112: Negative or not required by law. Electronically signed by: Umer Chaves M.D. 02/16/2021 5:13 PM Code Status & VTE Plan VTE Prophylaxis Plan VTE Prophylaxis will be ordered: Yes PG Care Time/CCT Total # of Minutes Spent Total Time Spent with Patient: Total time spent is greater than 50% in coordination of care (as documented) at patient's floor/unit and/or counseling patient: Coding Level of Care Code INT OBSERVATION CARE 50M LVL 2 Diagnoses Transient visual loss H53.129 Mood disorder F39 Hypothyroidism E03.9 Hypertension I10
[2021-02-16] MEDS ORDERED: risperiDONE 2 MG TABLET PO SCH (22:08)
[2021-02-16] MEDS ORDERED: ONDANSETRON INJ 2 MG/ML 2 ML VIAL IV PRN (22:08)
[2021-02-16] MEDS ORDERED: ACETAMINOPHEN 325 MG TAB PO PRN (22:08)
[2021-02-16] MEDS ORDERED: GADOBUTROL 65ML VIAL IV ONE (23:05)
[2021-02-16] MEDS: busPIRone 15 MG TAB PO SCH (23:26)
[2021-02-17] MEDS ORDERED: LEVOTHYROXINE SODIUM 100 MCG TABLET PO SCH (06:30)
[2021-02-17 06:42] LABS: Basophils # (auto) 0.07 K/uL (0-0.2); Basophils % (auto) 1.5 %; Eosinophils # (auto) 0.04 K/uL (0-0.5); Eosinophils % (auto) 0.9 %; Hematocrit (blood only) 40.2 % (37-47); Hemoglobin 13.3 g/dL (12.0-16.0); Lymphocytes # (auto) 1.67 K/uL (1.2-3.4); Lymphocytes % (auto) 35.8 %; Mean Corpuscular Hemoglobin 30.4 pg (25-34); Mean Corpuscular Hgb Conc 33.1 g/dL (32-36); Monocytes # (auto) 0.62 K/uL (0.11-0.59); Monocytes % (auto) 13.3 %; Neutrophils # (auto) 2.26 K/uL (1.4-6.5); Neutrophils % (auto) 48.5 %; Platelet Count 239 K/uL (130-400); RDW Standard Deviation 47.8 fL (36.4-46.3); Red Blood Count 4.37 M/uL (4.2-5.4); White Blood Count 4.66 K/uL (4.8-10.8)
[2021-02-17 07:20] LABS: BUN Creatinine Ratio 18.7 (10-20); Calcium 9.5 mg/dl (8.5-10.1); Creatinine Clr Calc Pharmacy 48.7 ml/min; Est GFR (African American) 65.2 ml/min; Est GFR (Non-African American) 56.2 ml/min; Potassium 4.5 mmol/L (3.5-5.1)
[2021-02-17 07:24] LABS: Estimated Average Glucose 103 mg/dl; Hemoglobin A1C 5.2 % (4.5-5.6)
[2021-02-17 07:32] LABS: Thyroid Stimulating Hormone 1.22 uIu/ml (0.300-4.500)
[2021-02-17] MEDS ORDERED: Influenza Vaccine-High Dose (Fluzone-HD) PF 65+ 0.7 ML SYR IM ONE (08:00)
[2021-02-17] MEDS ORDERED: PNEUMOCOCCAL Polysaccharide Vaccine 25mcg/0.5mL vial/Syr IM ONE (08:00)
--- NOTE | 2021-02-17 08:43 | Magnetic Resonance Report ---
MRI OF THE BRAIN WITHOUT AND WITH IV CONTRAST CLINICAL HISTORY: ?CVA. Right eye vision loss. COMPARISON STUDY: Head CT and CTA of the head February 16, 2021. TECHNIQUE: Utilizing a 1.5 Vashti magnet and dedicated coil, multiplanar, multiecho imaging of the br ain was performed pre and postcontrast administration. IV administration of 7.6 mL of Gadavist contr ast was uneventful. FINDINGS: There are no foci of restricted diffusion to suggest acute infarct. Note is made of a 1.2 c m hyperintense focus within the posterior right frontal lobe on axial diffusion-weighted weighted seq uence image 17 of 24. However, this is hyperintense on the ADC map. This represents T2 shine through. No acute intracranial hemorrhage, midline shift or mass affect is present. Ventricular system is unr emarkable. Basal cisterns are patent. There are no extra axial collections. Flow-voids for the major intracranial vessels are present. No intracranial mass or pathologic enhancement. Calvarial signal is unremarkable. There is no evidence for sinusitis. There is no mastoid fluid. Mild white matter T2 hy perintense foci suggest small vessel disease. IMPRESSION: 1. No acute intracranial findings. 2. No intracranial mass or pathologic enhancement. 3. 1.2 cm focus of signal abnormality within the posterior right frontal lobe consistent with a small old infarct. ACT 112: Negative or not required by law. Electronically signed by: Champ Tay M.D. 02/17/2021 8:41 AM
[2021-02-17] MEDS ORDERED: CITALOPRAM 40 MG TAB PO SCH (09:00)
[2021-02-17] MEDS ORDERED: risperiDONE 1 MG TABLET PO SCH (09:00)
[2021-02-17] MEDS ORDERED: ASPIRIN 81 MG ECTAB PO SCH (09:00)
[2021-02-17] MEDS ORDERED: ATORVASTATIN 40 MG TAB PO SCH (09:00)
--- NOTE | 2021-02-17 09:28 | Hospitalist Progress Note ---
Date of Service February 17, 2021 Assessment & Plan (1) Transient visual loss: Plan: 70yo female with history of HTN, (no history of DM although patient is on Metformin as an outpatient) presenting with transient painless monocular vision loss which occurred earlier today. Vision has returned and patient is back to baseline. No additional complaints at this time. Neurological exam is unremarkable. CT of the head with subcentimeter hypodense focus of the right fr ontal lobe centrum semiovale which is new from 02/2015 suggestive of a small age-indeterminate infarct., MRI suggests non acute Visual loss concerning for transient retinal artery occlusion, but normal ESR goes against vasculitis -Observation to medical with telemetry -NIHSS, Neuro checks as needed - Brain MRI. No acute intracranial findings, 1.2 cm focus of signal abnormality within the posterior right frontal lobe consistent with a small old infarct. -Carotic and vertebral arteries without stenosis, occlusion or dissection on CTA 2D echo to complete stroke workup -Normal A1C, Lipids, ESR normal -Neuro consultation pending -Initiate ASA 81mg po daily and Atorvastatin 40mg po daily (2) Hypertension: Plan: Blood pressure mildly elevated. Patient is on Amlodipine at home which was started in the last month -Will hold to allow for permissive hypertension (3) Mood disorder: Plan: Chronic. Well controlled -Continue Bupropion 100mg po BID -Continue Buspirone 30mg po BID -Continue Citalopram 80mg po qAM -Continue risperidone -Continue Ziprasidone (4) Hypothyroidism: Plan: Chronic, TSH is appropriate -Continue Synthroid 100mcg po daily Plan: F/E/N - Heplock. Electrolytes WNL. Heart healthy diet as tolerated Ppx - SCDs Code - Full per discussion with patient Dispo - Observation to medical with telemetry Admission and Anticipated Discharge Date Admission Date: February 16, 2021 Results & Data Results & Data ([facility]) Vital Signs (Past 12 Hours) Vital Signs Temp Pulse Pulse Resp BP Pulse Ox 02/17/21 07:28 97.9 F 68 16 113/71 96 02/17/21 07:26 71 02/17/21 04:00 98.4 F 72 16 117/68 94 PG Care Time/CCT Total # of Minutes Spent Total Time Spent with Patient: Total time spent is greater than 50% in coordination of care (as documented) at patient's floor/unit and/or counseling patient: Coding Diagnoses Transient visual loss H53.129 Hypertension I10 Mood disorder F39 Hypothyroidism E03.9
[2021-02-17] MEDS: busPIRone 15 MG TAB PO SCH (09:39)
--- NOTE | 2021-02-17 09:42 | Neurology Consultation ---
Date of Consultation February 17, 2021 Assessment & Plan (1) Amaurosis fugax of right eye: Amaurosis fugax to the right eye characterized by sudden onset painless vision loss, resolving within about 8 hours and occurring without any other associated neurologic symptom. Unremarkable eye examination prior to her assessment in the hospital. No evidence of acute or subacute process on recently completed neuroimaging. 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 No associated neurologic deficits. No significant vascular abnormalities on CT angiography of the head and neck. Patient does have a history of hypertension which would be a risk factor for stroke in this patient. Her blood pressure was modestly elevated at the time of presentation. She does not present with symptoms suggestive of temporal arteritis and has normal inflammatory markers making this diagnosis unlikely. Given her current presentation coupled with the finding of an old clinically asymptomatic right frontal lobe infarct I wonder if this patient may have occult atrial fibrillation. Follow-up with results of echocardiogram. Would also recommend 30-day mobile cardiac outpatient telemetry. Agree with daily low-dose aspirin and atorvastatin. No further immediate neurological recommendations. Patient should have additional follow-up with her eye doctor as an outpatient as well. History of Present Illness Reason for Consultation: vision loss Requesting Physician: Ling Clemons DO Attending Physician: Michelet Solis MD History of Present Illness The patient is a 70-year-old female with a chief complaint of painless monocular vision loss affecting the right eye that began acutely yesterday morning after performing yoga. She initially noticed the vision loss while walking up her stairs. She did not perceive any vision difficulty with the left eye. No ocular pain. No diplopia. No other associated symptoms such as vertigo, dysarthria, or weakness. No headache. Her symptoms persisted and she was eventually evaluated by Dr. Mar, her eye doctor who reportedly did not find any obvious ocular abnormalities and referred the patient to the emergency department for further assessment of possible retinal ischemia/TIA. The patient reports that her symptoms gradually improved over about 8 hours. This morning, she is feeling fine, without symptomatic recurrence and no other associated neurologic symptoms. She denies experiencing similar episodes of vision loss in the past. She denies a history of stroke or TIA. History notable for multilevel cervical spinal fusion about 8 or [address] Winston. She does have some residual weakness of the left arm. History also notable for depression with anxiety for which she is prescribed a few different medications. She is also on medication for hypertension. She does not take antiplatelet therapy or statin as an outpatient. History also notable for breast cancer, currently taking anastrozole. She is also on metformin but does not appear to have diabetes mellitus. History also notable for bipolar disorder versus schizoaffective disorder, currently taking several different medications for mood including bupropion, BuSpar, citalopram, risperidone, and ziprasidone. Her mood has been stable. Allergies Allergy/AdvReac Type Severity Reaction Status Date / Time Cephalosporins Allergy Intermediate "SWELLING" Verified 02/16/21 20:16 Penicillins Allergy Intermediate "SWELLING" Verified 02/16/21 20:16 clindamycin Allergy Unknown rash Verified 02/16/21 20:16 Home Medications Medication Instructions Recorded Confirmed Type alendronate 70 mg tablet 70 mg PO WK 02/16/21 02/16/21 History amlodipine 2.5 mg tablet 2.5 mg PO DAILY 02/16/21 02/16/21 History anastrozole 1 mg tablet 1 mg PO DAILY 02/16/21 02/16/21 History bupropion HCl 100 mg tablet 100 mg PO BID 02/16/21 02/16/21 History buspirone 30 mg tablet 30 mg PO BID 02/16/21 02/16/21 History citalopram 40 mg tablet 80 mg PO QAM 02/16/21 02/16/21 History levothyroxine 100 mcg tablet 100 mcg PO DAILY 02/16/21 02/16/21 History meloxicam 15 mg tablet 15 mg PO DAILY 02/16/21 02/16/21 History metformin 850 mg tablet 850 mg PO BID 02/16/21 02/16/21 History risperidone 1 mg tablet 1 mg PO QAM 02/16/21 02/16/21 History risperidone 1 mg tablet 2 mg PO QPM 02/16/21 02/16/21 History ziprasidone HCl 80 mg capsule 80 mg PO .DAILY WITH DAIJA MEAL 02/16/21 02/16/21 History Patient History Medical History (Updated 02/17/21 @ 09:31 by Jori Pacheco MD) History of orthopedic surgery Hypertension Hypothyroidism Mood disorder Pancreatitis UTI (urinary tract infection) Surgical History (Updated 02/16/21 @ 20:53 by Ling Clemons DO) History of back surgery History of cholecystectomy History of foot surgery History of rotator cuff surgery Social History Smoking Status: Never smoker Hx Alcohol Use: No Hx Substance Use: No Preferred Language: [place] Communication Ability: Effective Tile Layer Drainage Required: No Beliefs That Will Affect Care: None Current Living Situation: Spouse Feels Safe at Home: Yes Assistive Devices: None Review of Systems Constitutional: no fever and no chills Eyes: as per Subjective / HPI and + blind spots; no diplopia and no eye pain Ear, Nose, Mouth, Throat: no ear pain and no hearing loss Respiratory: no cough and no dyspnea Cardiovascular: no chest pain and no palpitations Gastrointestinal: no constipation and no diarrhea/loose stools Genitourinary: no urinary urgency and no urinary incontinence Musculoskeletal: no muscle weakness and no muscle atrophy Integumentary: no rash and no lesions Neurologic: as per Subjective / HPI Psychiatric: no behavioral changes, no depression, no abnormal sleep pattern and no anxiety Hematologic / Lymphatic: no easy bruising and no lymphadenopathy Exam (Neuro) Constitutional: well developed and well nourished; no acute distress Eyes: normal visual monae by confrontation, PERRL, normal accommodation and EOM intact bilaterally; no fundoscopic abnormality, no nystagmus and no papilledema Cardiovascular: Vessels: normal carotid upstroke; no carotid bruit Neurologic: Oriented to:: Person, Place and Time Memory: Short Term Intact and Remote Intact Attention: Span Intact and Concentration Intact Language: Naming Objects and Repeating Phrases Speech Fluency: negative Dysarthria Speech Aphasia: negative Aphasia Fund of Knowledge: Current Events, Past History and Vocabulary Cranial Nerves: Normal II (Visual monae full to confrontation, visual acuity normal), III, IV, (Pupils equal round reactive to light and accommodation, eye movements normal), V (Facial sensation intact), VII (There is no facial droop or weakness), VIII (Hearing intact), IX, X (Palate elevates to midline), XI (Shoulder shrug intact) and XII (Tongue protrudes to midline) Motor Strength: Normal Lower Extremities and Normal Upper Extremities; negative Pronator Drift Motor Tone: Normal Lower Extremities and Normal Upper Extremities Muscle Bulk/Involuntary Movements: No Involuntary Movements; negative Muscle Atrophy Sensation: Light Touch Intact, Pain/Temperature Intact, Vibration Intact and Proprioception Intact Coordination: Normal; negative Limited Balance, Dysdiadochokinesia, Finger-Nose Abnormal or Heel-Mcgrath Abnormal Deep Tendon Reflexes: Rt Triceps: 2+, Lt Triceps: 2+, Rt Biceps: 2+, Lt Biceps: 2+, Rt Brachioradialis: 2+, Lt Brachioradialis: 2+, Rt Patellar: 2+, Lt Patellar: 2+, Rt Ankle: 2+ and Lt Ankle: 2+ Special Tests: negative Babinski Present Gait: Normal Station and Gait Results & Data ([facility]) Vital Signs (Past 12 Hours) Vital Signs Temp Pulse Pulse Resp BP Pulse Ox 02/17/21 07:28 36.6 C 68 16 113/71 96 02/17/21 07:26 71 02/17/21 04:00 36.9 C 72 16 117/68 94 Laboratory Results WBC 4.66, hemoglobin 13.3, hematocrit 40.2, platelet count 239, ESR 5, sodium 138, potassium 4.5, BUN 19, creatinine 1.00, glucose 91, hemoglobin A1c 5.2, AST 12, ALT 22, troponin less than 0.015, CRP less than 0.29, triglycerides 107, cholesterol 153, LDL 82, VLDL 21, HDL 50, TSH 1.220, SARS-CoV-2 PCR negative. Diagnostic Findings A CT of the head reveals a chronic appearing ischemic infarct within the right frontal lobe/centrum semiovale, new compared with a study done in 2015. CT angiography of the head and neck unremarkable, no evidence of stenosis, occlusion, aneurysm, or dissection. MRI of the brain negative for acute or subacute infarct. No pathologic enhancement. Old small infarct within the posterior right frontal lobe again appreciated. I reviewed the images as well as the radiologist's interpretation of these tests and agree. An electrocardiogram reveals a normal sinus rhythm, 74 bpm. Coding Level of Care Code 54778 Initial Inpt Care Lvl 3 Diagnoses Amaurosis fugax of right eye G45.3
--- NOTE | 2021-02-17 13:41 | XCELERA ---
[id number]
[2021-02-17] MEDS ORDERED: ziprasidone HCL 80 MG CAP PO SCH (17:30)
--- NOTE | 2021-02-17 19:09 | Discharge Summary ---
Date of Service February 17, 2021 Admission HPI Per Admitting Provider Gina Smith is a 70 yo female presenting with transient visual loss of the right eye. Patient was practicing yoga this morning after which she developed painless visual loss of her right eye. She states she was able to see fragments of images and a little bit of light. She denies pain in the eye or with eye movement. Denies redness, tearing, numbness, tingling, facial droop, headache. She denies jaw pain or jaw claudication. Patient was seen at [facility] today with this complaint. Ocular exam revealed constricted artery coming superior temporaraly out of the ONH that is very constricted. Concern for transient central retinal artery occlusion or ischemic optic neuropathy in the right eye. Her vision has since improved to normal. Symptoms lasted approximately 8 hours. No additional complaints at this time Patient is vaccinated against Covid-19. Covid testing is NEGATIVE ER Course: ASA 324mg po Principal Diagnosis amaurosis fugax Discharge Exam The patient appeared well Vital signs as documented. Lungs are clear to auscultation and appear unlabored Cardiac exam, Rhythm is regular.. No murmurs, rubs or gallops. Abdominal exam reveals normal bowel sounds, soft non tender, no masses Extremities are nonedematous and both pedal pulses are normal. Neurologic exam is alert and oriented, no focal loss of strength or sensation Skin is without bruises or rashes Psychologically is without concerns for anxiety or depression. Discharge Data Allergies Allergy/AdvReac Type Severity Reaction Status Date / Time Cephalosporins Allergy Intermediate "SWELLING" Verified 02/16/21 20:16 Penicillins Allergy Intermediate "SWELLING" Verified 02/16/21 20:16 clindamycin Allergy Unknown rash Verified 02/16/21 20:16 Consultations 02/16/21 19:15 ED Decision to Admit Stat 02/16/21 22:08 Consult Neurology Routine Ordered Studies 02/16/21 15:06 CT head/brain wo con Stat 02/16/21 16:42 CT angio head w con Stat CT angio neck with con Stat 02/16/21 22:08 MR brain wo/w con Routine Hospital Course (1) Transient visual loss: 70yo female with history of HTN, (no history of DM although patient is on Metformin as an outpatient) presenting with transient painless monocular vision loss which occurred earlier today. Vision has returned and patient is back to baseline. No additional complaints at this time. Neurological exam is unremarkable. CT of the head with subcentimeter hypodense focus of the right frontal lobe centrum semiovale which is new from 02/2015 suggestive of a small age-indeterminate infarct., MRI suggests no acute changes Visual loss concerning for transient retinal artery occlusion, but normal ESR goes against vasculitis Still consider amaurosis fugax his diagnoses no stroke therefore we will not use antilipid medication we will continue baby aspirin once a day - Brain MRI. No acute intracranial findings, 1.2 cm focus of signal abnormality within the posterior right frontal lobe consistent with a small old infarct. -Carotic and vertebral arteries without stenosis, occlusion or dissection on CTA 2D echo shows normal EF and no Intracardiac shunt noted -Normal A1C, Lipids, ESR normal -Neuro consultation recommends outpt cardiac event monitor, pt sees [facility] and will refer to Dr Voss for monitor -Initiate ASA 81mg po daily (2) Hypertension: resume amlodipine (3) Mood disorder: Chronic. Well controlled -Continue Bupropion 100mg po BID -Continue Buspirone 30mg po BID -Continue Citalopram 80mg po qAM -Continue risperidone -Continue Ziprasidone (4) Hypothyroidism: Chronic, TSH is appropriate -Continue Synthroid 100mcg po daily Code - Full per discussion with patient Total Time Total Time Spent Total Time Spent (In Minutes): It required greater than 30 minutes to prepare this patient for discharge, includes discussion with case management on process to arrange outpatient customer service operator Discharge Plan Discharge Items Patient Disposition: Home - Self-Care Reason For Visit: TRANSIENT VISUAL LOSS Discharge Diagnosis: amaurosis Fugax-> resolved Activity: Resume your previous activity Non-emergency contact: Primary Care Provider Call non-emergency contact if: you have any medication questions and your symptoms worsen Follow-up/Referrals: Daniel Jackson MD [Primary Care Provider] - Diet: Regular Addtl Attending Provider Instructions: please take a baby aspirin 81 mg once a day Your echo test of your heart is normal please have follow up with Dr Jackson and he can arrange follow up with neurology you will be contacted by Dr Voss the [facility] cardiology office to arrange an outpt heart monitor to detect if you have an irregular heart beat that can lead to the transient vision loss you experienced. His office is near [facility] in [facility] Pending Studies at Discharge: No Stand-Alone Forms: My [facility] [employer], Smoking Cessation Medications and DC Order Prescriptions: New aspirin [Aspirin Low Dose] 81 mg tablet,delayed release (DR/EC) 81 mg PO DAILY Qty: 30 RF: 3 Continued levothyroxine 100 mcg tablet 100 mcg PO DAILY RF: 0 alendronate 70 mg tablet 70 mg PO WK RF: 0 amlodipine 2.5 mg tablet 2.5 mg PO DAILY RF: 0 ziprasidone HCl 80 mg capsule 80 mg PO .DAILY WITH DAIJA MEAL RF: 0 buspirone 30 mg tablet 30 mg PO BID RF: 0 risperidone 1 mg tablet 1 mg PO QAM RF: 0 risperidone 1 mg tablet 2 mg PO QPM RF: 0 meloxicam 15 mg tablet 15 mg PO DAILY RF: 0 metformin 850 mg tablet 850 mg PO BID RF: 0 citalopram 40 mg tablet 80 mg PO QAM RF: 0 anastrozole 1 mg tablet 1 mg PO DAILY RF: 0 bupropion HCl 100 mg tablet 100 mg PO BID RF: 0 Discharge Orders: Discharge Order (Routine); Ordered 02/17/21 Ordered By: Michelet Solis Admission Data Admit Date/Time: 02/16/21 20:13 Attending Provider: Michelet Solis Admit Provider: Ling Clemons Primary Care Provider: Daniel Jackson Other Providers: Ling Clemons ; Troy Simon Other Interventions: Discharge Summary Assessment (RN) Last Done: 02/17/21 15:32 Coding Level of Care Code D/C DAY MANAGEMENT >30 MINS Diagnoses Transient visual loss H53.129 Hypertension I10 Mood disorder F39 Hypothyroidism E03.9
--- NOTE | 2021-02-18 16:47 | Electrocardiogram Report ---
Test Reason : Blood Pressure : / mmHG Vent. Rate : 074 BPM Atrial Rate : 074 BPM P-R Int : 174 ms QRS Dur : 088 ms QT Int : 432 ms P-R-T Axes : 062 043 076 degrees QTc Int : 479 ms Poor data quality, interpretation may be adversely affected Normal sinus rhythm Normal ECG When compared with ECG of 06-JUN-2015 17:22, No significant change was found Confirmed by Laci Butterfield ([id number]) on 02/18/2021 4:46:58 PM Referred By: REFERRED SELF Confirmed By:Igor Buttefrield
== END 2021-02-17 16:06 | disposition home or self-care (01) ==
LOC: 2W 14:55 → ED 14:55 → SUATTDRO 20:13 → 2W 21:22

== ENCOUNTER 2021-10-21 07:55 | Inpatient (IN) ==
--- NOTE | 2021-10-05 13:05 | PAT Medication Instructions ---
Medication Instructions Date of Service October 05, 2021 Home Medications alendronate 70 mg tablet 70 mg PO WK amlodipine 2.5 mg tablet 2.5 mg PO HS anastrozole 1 mg tablet 1 mg PO DAILY bupropion HCl 100 mg tablet 100 mg PO BID buspirone 30 mg tablet 30 mg PO BID citalopram 40 mg tablet 80 mg PO QAM levothyroxine 100 mcg tablet 100 mcg PO QAM meloxicam 15 mg tablet 15 mg PO QAM metformin 850 mg tablet 850 mg PO BID risperidone 1 mg tablet 1 mg PO QAM risperidone 1 mg tablet 2 mg PO QPM ziprasidone HCl 80 mg capsule 80 mg PO .DAILY WITH DAIJA MEAL acetaminophen 500 mg tablet (Acetaminophen Extra Strength) 1,000 mg PO Q6H atorvastatin 10 mg tablet 10 mg PO HS clopidogrel 75 mg tablet (Plavix) 75 mg PO QAM gabapentin 300 mg tablet 300 mg PO QAM gabapentin 600 mg tablet 600 mg PO BID ibuprofen 600 mg tablet 600 mg PO Q6H Continue as directed alendronate 70 mg tablet 70 mg PO WK (continue as normal unless told otherwise by surgeon/prescriber) ASK your surgeon for instructions meloxicam 15 mg tablet 15 mg PO QAM ibuprofen 600 mg tablet 600 mg PO Q6H ASK your prescriber and surgeon clopidogrel 75 mg tablet (Plavix) 75 mg PO QAM anastrozole 1 mg tablet 1 mg PO DAILY DO NOT take the morning of surgery metformin 850 mg tablet 850 mg PO BID Take morning of surgery With a small sip of water, OTHERWISE NOTHING TO EAT OR DRINK AFTER MIDNIGHT: bupropion HCl 100 mg tablet 100 mg PO BID buspirone 30 mg tablet 30 mg PO BID citalopram 40 mg tablet 80 mg PO QAM levothyroxine 100 mcg tablet 100 mcg PO QAM risperidone 1 mg tablet 1 mg PO QAM acetaminophen 500 mg tablet (Acetaminophen Extra Strength) 1,000 mg PO Q6H gabapentin 300 mg tablet 300 mg PO QAM gabapentin 600 mg tablet 600 mg PO BID Take evening before surgery amlodipine 2.5 mg tablet 2.5 mg PO HS bupropion HCl 100 mg tablet 100 mg PO BID buspirone 30 mg tablet 30 mg PO BID metformin 850 mg tablet 850 mg PO BID risperidone 1 mg tablet 2 mg PO QPM ziprasidone HCl 80 mg capsule 80 mg PO .DAILY WITH DAIJA MEAL acetaminophen 500 mg tablet (Acetaminophen Extra Strength) 1,000 mg PO Q6H atorvastatin 10 mg tablet 10 mg PO HS gabapentin 600 mg tablet 600 mg PO BID Other Notes If you have any questions please call us at [phone] or [phone] or [phone] or [phone]
--- NOTE | 2021-10-07 11:39 | Anesthesiology Consultation ---
Date of Service October 07, 2021 Assessment & Plan (1) Encounter for pre-operative examination: - Cardiology office visit (06/21/21): History of asymptomatic cryptogenic stroke- 1.2cm posterior right frontal lobe infarct found during hospitalization 02/16/2021.. Amaurosis fugax of the right eye now resolved, not due to temporal arteritis and with normal ophthalmologic exam at the time.. CTA without significant carotid disease.. Echo with normal LVF, no shunt.. Ms. Smith is doing well. She has not had any further stroke like symptoms or visual changes.. Her event monitor was work for 6 weeks and did not show any atrial fibrillation.. Given her stroke and visual changes and also the recommendation of neurology during the hospitalization, I think it would be reasonable to proceed with a loop recorder." Patient seen at [facility] 10/07/21. She reports she did not loop recorder implanted as was previously recommended. Awaiting cardiology optimization response (Dr. Voss). - CVA: Amaurosis fugax 02/2021- evaluated at [facility]. Small old infarct found on brain MRI (02/16/21). Patient was started on Plavix with recommendation to f/u with cardiology and neurology as outpatient. DOS will be a little over 8 months since MRI found evidence of old infarct. Patient aware of increased risks given possible stroke within 9 months (do not know exact date of event since 02/16/21 showed evidence of an old infarct- not acute. DOS will be at least 8 months after event) and wishes to proceed with surgery as scheduled given considerable pain/issues r/t back. She states she did not see neurology since hospital visit. Spoke with Dr. Lucio. He requests patient have preop neurology evaluation (seen by neuro 10/14/21- see below). - Neurology office visit (10/14/21): "71-year-old female with a history of amaurosis fugax occurring in February 2021. Was also found to have an incidental chronic right frontal infarct at that time. Has not had any further stroke or TIA-like episodes. Has been on Plavix, clinically stable. Was planning on having a loop recorder placed per cardiology although this procedure is now on hold as she will be proceeding with lumbar spinal decompressive surgery with Dr. Winston in about 1 week. At this point, given patient's neurologic stability, I do not find a contraindication to her proceeding with lumbar spinal surgery. She may discontinue Plavix prior to her surgery at the discretion of Dr. Winston. This medication may be restarted after her surgery at Dr. Winston's discretion as well. This patient also has a mild bilateral upper extremity resting postural and action tremor. Does have a parkinsonian quality although again, is fairly symmetric and she is not rigid or bradykinetic. 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 Discussed clinical observation for the time being, would not recommend symptomatic pharmacologic intervention." - Plavix instructions: per surgeon/prescriber - Check BSG AM DOS - COVID screening: Per assessment on 10/07: No known COVID-19 positive contacts or current COVID-19 related symptoms. Travel screen negative. Patient vaccinated. Surgeon arranging preop COVID testing. Awaiting results. Chart Review Chart Review: Patient seen in Pre Admission Testing Teaching & Discussion Pre-Anesthesia Teaching/Discussion Notes: Instructed NPO after midnight before surgery,except medications with 15 cc of water. Medication instructions provided according to the PAT guidelines. History Surgery Operation Date: 10/21/21 07:45 Proposed Procedures p T11-L2 Decompression and Fusion, L2-L5 Hardware Removal Spinal Cord Monitoring - Anup Winston DO Height/Weight Height: 5 ft 2 in Weight: 76.5 kg Allergies Allergy/AdvReac Type Severity Reaction Status Date / Time Cephalosporins Allergy Intermediate Swelling Verified 10/05/21 12:45 Penicillins Allergy Intermediate Swelling Verified 10/05/21 12:45 clindamycin Allergy Unknown Rash Verified 10/05/21 12:45 Medications Home Medications Medication Instructions Recorded Confirmed Last Taken alendronate 70 mg tablet 70 mg PO WK 02/16/21 10/14/21 Unknown amlodipine 2.5 mg tablet 2.5 mg PO HS 02/16/21 10/14/21 Unknown anastrozole 1 mg tablet 1 mg PO DAILY 02/16/21 10/14/21 Unknown bupropion HCl 100 mg tablet 100 mg PO BID 02/16/21 10/14/21 Unknown buspirone 30 mg tablet 30 mg PO BID 02/16/21 10/14/21 Unknown citalopram 40 mg tablet 80 mg PO QAM 02/16/21 10/14/21 Unknown levothyroxine 100 mcg tablet 100 mcg PO QAM 02/16/21 10/14/21 Unknown meloxicam 15 mg tablet 15 mg PO QAM 02/16/21 10/14/21 Unknown metformin 850 mg tablet 850 mg PO BID 02/16/21 10/14/21 Unknown risperidone 1 mg tablet 1 mg PO QAM 02/16/21 10/14/21 Unknown risperidone 1 mg tablet 2 mg PO QPM 02/16/21 10/14/21 Unknown ziprasidone HCl 80 mg capsule 80 mg PO .DAILY WITH DAIJA MEAL 02/16/21 10/14/21 Unknown acetaminophen 500 mg tablet 1,000 mg PO Q6H 10/05/21 10/14/21 Unknown (Acetaminophen Extra Strength) atorvastatin 10 mg tablet 10 mg PO HS 10/05/21 10/14/21 Unknown clopidogrel 75 mg tablet (Plavix) 75 mg PO QAM 10/05/21 10/14/21 Unknown gabapentin 600 mg tablet 600 mg PO TID 10/05/21 10/14/21 Unknown ibuprofen 600 mg tablet 600 mg PO Q6H 10/05/21 10/14/21 Unknown nitrofurantoin 100 mg PO BID 10/14/21 10/14/21 Unknown monohydrate/macrocrystals 100 mg capsule (Macrobid) Past Medical History Medical History Anxiety Bipolar disorder PCP records Depression Glaucoma History of breast cancer 2015 s/p b/l mastectomy Hypertension Hypothyroidism Impaired fasting glucose No DM dx from PCP records, on metformin BID for appetite control d/t being on risperidone per pt Pancreatitis hx Schizoaffective disorder PCP records Stroke Amaurosis fugax 02/2021- small old infarct found on brain MRI (02/16/21)- reason for plavix Per [facility] discharge summary, to f/u with neuro and cardio outpatient (follows with Dr. Voss, ? neurology) Exercise / Class Metabolic Activity II 4-5 Yardwork/Stairs/Walk up hill (one FS (no CP, no SOB)) Past Surgical History Surgical History History of ankle surgery right History of back surgery 2007 and 2011 History of bilateral mastectomy History of cholecystectomy History of foot surgery History of rotator cuff surgery X2 Past Anesthesia History No Hx of Anesthesia Complications (except post-op nausea x1 episode) and No Family Hx of Anesthesia Complications History of PONV No Hx of Motion Sickness and History of PONV (post-op nausea x1 episode) Social History Smoking Status: Never smoker Do You Dip or Chew Tobacco: No Hx Alcohol Use: No Hx Substance Use: No substance use type: does not use Review of Systems Patient denies chest pain, shortness of breath, dyspnea on exertion, fever, chills, cough, wheezing, palpitations. Physical Exam Vital Signs VITALS BP 113/76 P 74 TEMP 99.1 SP02 98%RA RESP 16 PHYSICAL Full cervical extension range of motion. Full TMJ range of motion. TMD 3 finger breaths Mallampati Score 3 Dentition: intact, + crowns Lungs: clear throughout to auscultation Cardiac: regular rate and rhythm, no murmurs noted Spine: normal Carotid arteries: negative bruit Extremities: no edema Lab Results Anesthesia Preop Results Results Anesthesia Widget: WBC 6.52 K/uL (4.8-10.8) 10/07/21 Hgb 12.1 g/dL (12.0-16.0) 10/07/21 Hct 36.5 % (37-47) L 10/07/21 Plt 291 K/uL (130-400) 10/07/21 Na 134 mmol/L (136-145) L 10/07/21 K 4.0 mmol/L (3.5-5.1) 10/07/21 Cl 97 mmol/L (98-107) L 10/07/21 CO2 29 mmol/L (21-32) 10/07/21 BUN 14 mg/dl (6-23) 10/07/21 Creat 0.84 mg/dl (0.6-1.2) 10/07/21 Glucose Level 98 mg/dl (70-99(Fasting)) 10/07/21 PT 10.4 Seconds (9.0-12.0) 10/07/21 PTT 25.8 Seconds (21.0-31.0) 10/07/21 INR 1.0 (0.9-1.1) 10/07/21 Urine Color Dark Yellow 10/07/21 Urine Appearance Clear (Clear) 10/07/21 Urine pH 5.5 (4.5-7.5) 10/07/21 Urine Specific [place] 1.027 (1.000-1.030) 10/07/21 Urine Protein Negative (Negative) 10/07/21 Urine Glucose (UA) Negative (Negative) 10/07/21 Urine Ketones 1+ (Negative) H 10/07/21 Urine Blood Negative (Negative) 10/07/21 Urine Nitrite Positive (Negative) A 10/07/21 Urine Bilirubin Negative (Negative) 10/07/21 Urine Urobilinogen Negative (Negative) 10/07/21 Urine Leukocyte Esterase 2+ (Negative) H 10/07/21 Urine WBC (Auto) >30 /hpf (0-5) H 10/07/21 Urine RBC (Auto) 5-10 /hpf (0-4) H 10/07/21 Urine Hyaline Casts (Auto) 1-5 /lpf (0-5) 10/07/21 Urine Epithelial Cells (Auto) 0-5 /lpf (0-5) 10/07/21 Urine Bacteria (Auto) 4+ (Negative) H 10/07/21 Blood Type B Positive 10/07/21 Antibody Screen NEGATIVE 10/07/21 Testing Laboratory Results Surgeon's office made aware of abnormal UA. Electrocardiogram Date: 02/16/21 Normal sinus rhythm at 74 bpm. Normal ECG. *Poor data quality. Chest X-Ray Date: 02/16/21 FINDINGS: Cardiomediastinal and hilar silhouettes are within normal limits. No pneumothorax, pleural effusion, airspace consolidation or overt pulmonary edema. Degenerative changes of the shoulders and spine. Surgical clips project over the chest. Cervical spinal fusion hardware. IMPRESSION: No acute process. Echocardiogram Date: 02/17/21 EF 55-60%. No regional motion abnormality. Mild AR/MR. Other Testing Neck CTA (02/16/21) No significant stenosis, occlusion, or aneurysm within the [place]. There is no significant stenosis, occlusion, or dissection identified within the bilateral common carotid, internal carotid, or vertebral arteries.
[~2021-10-21 07:55] MED LIST changes: +ACETAMINOPHEN 500 MG TAB PO SCH; +ALBUMIN HUMAN 5% 12.5 GM/250 ML VIAL IV ONE; -BSP/5 PO; -CLON0.2T PO; +CeleBREX 200 MG CAP PO SCH; -DIPH25CA5 PO; +GABAPENTIN 300 MG CAP PO SCH; -LEVO200T6 PO; +LR 15ML/HR IV SCH; +SUGAMMADEX SODIUM 200 MG/2 ML VIAL IV ONE; -TIMO0.2528 OPL; +VANCOMYCIN HCL 1,250 MG in SODIUM CHLORIDE 0.9% 250 ML IV SCH; -ZIPR1CAP6 PO
[2021-10-21] MEDS ORDERED: HYDROmorphone INJ 2 MG/ML SYR/VIAL ONE (08:25)
[2021-10-21] MEDS ORDERED: MIDAZOLAM HCL 1 MG/ML 2ML VIAL ONE (08:25)
[2021-10-21] MEDS ORDERED: KETAMINE 50 MG/5 ML SYRINGE ONE (08:25)
[2021-10-21] MEDS ORDERED: GABAPENTIN 600 MG TAB PO STA (09:00)
--- NOTE | 2021-10-21 09:31 | History & Physical Bridge Note ---
Date of Service October 21, 2021 History & Physical Bridge Note I have examined the patient, reviewed the History & Physical and in the interval since the performance of the History & Physical I have noted the following changes of clinical significance: no changes noted
--- NOTE | 2021-10-21 09:32 | History & Physical Report ---
Date of Service October 21, 2021 Assessment & Plan (1) Neurogenic claudication due to lumbar spinal stenosis: Plan: T11-L2 decompression and fusion, L2-L5 hardware removal History of Present Illness Chief Complaint: Back and right leg pain Primary Care Provider: Daniel Jackson MD This is a 71-year-old female who presents with chronic persistent back and leg pain. Failing course of nonoperative care she is here for surgical intervention. Allergies Allergy/AdvReac Type Severity Reaction Status Date / Time clindamycin Allergy Severe Rash Verified 10/21/21 08:36 Cephalosporins Allergy Intermediate Swelling Verified 10/21/21 08:36 Penicillins Allergy Intermediate Swelling Verified 10/21/21 08:36 Home Medications Medication Instructions Recorded Confirmed Type alendronate 70 mg tablet 70 mg PO WK 02/16/21 10/21/21 History amlodipine 2.5 mg tablet 2.5 mg PO HS 02/16/21 10/21/21 History anastrozole 1 mg tablet (Arimidex) 1 mg PO DAILY 02/16/21 10/21/21 History bupropion HCl 100 mg tablet 100 mg PO BID 02/16/21 10/21/21 History buspirone 30 mg tablet 30 mg PO BID 02/16/21 10/21/21 History citalopram 40 mg tablet (Celexa) 80 mg PO QAM 02/16/21 10/21/21 History levothyroxine 100 mcg tablet 100 mcg PO QAM 02/16/21 10/21/21 History meloxicam 15 mg tablet 15 mg PO QAM 02/16/21 10/21/21 History metformin 850 mg tablet 850 mg PO BID 02/16/21 10/21/21 History risperidone 1 mg tablet 2 mg PO QPM 02/16/21 10/21/21 History risperidone 1 mg tablet (Risperdal) 1 mg PO QAM 02/16/21 10/21/21 History ziprasidone HCl 80 mg capsule 80 mg PO .DAILY WITH DAIJA MEAL 02/16/21 10/21/21 History (Geodon) acetaminophen 500 mg tablet 1,000 mg PO Q6H 10/05/21 10/21/21 History (Acetaminophen Extra Strength) atorvastatin 10 mg tablet 10 mg PO HS 10/05/21 10/21/21 History clopidogrel 75 mg tablet (Plavix) 75 mg PO QAM 10/05/21 10/21/21 History gabapentin 600 mg tablet 600 mg PO TID 10/05/21 10/21/21 History ibuprofen 600 mg tablet 600 mg PO Q6H 10/05/21 10/21/21 History nitrofurantoin 100 mg PO BID 10/14/21 10/21/21 History monohydrate/macrocrystals 100 mg capsule (Macrobid) metoprolol succinate 25 mg 25 mg PO HS 10/19/21 10/21/21 History tablet,extended release 24 hr (Toprol XL) Past Med/Surg History Medical History Anxiety Bipolar disorder PCP records Depression Glaucoma History of breast cancer 2015 s/p b/l mastectomy Hypertension Hypothyroidism Impaired fasting glucose No DM dx from PCP records, on metformin BID for appetite control d/t being on risperidone per pt Pancreatitis hx Schizoaffective disorder PCP records Stroke Amaurosis fugax 02/2021- small old infarct found on brain MRI (02/16/21)- reason for plavix Per [facility] discharge summary, to f/u with neuro and cardio outpatient (follows with Dr. Voss, ? neurology) Surgical History History of ankle surgery right History of back surgery 2007 and 2011 History of bilateral mastectomy History of cholecystectomy History of foot surgery History of rotator cuff surgery X2 Social History Smoking Status: Never smoker Second Hand Exposure: No; Do You Dip or Chew Tobacco: No; Tobacco Cessation Education Requested by Patient: No Hx Alcohol Use: No Hx Substance Use: No Preferred Language: Brazilian Communication Ability: Effective Document Preparation Specialist Required: No Beliefs That Will Affect Care: None Current Living Situation: Spouse Other Information That Helps Us Care for You: No Feels Safe at Home: Yes Safety Concerns: Feels Safe At This Time Assistive Devices: Glasses Physical Exam Physical Exam: Patient is alert and oriented Heart regular rhythm Lungs clear Results & Data Results & Data ([facility]) Vital Signs (Past 12 Hours) Vital Signs Temp Pulse Resp BP Pulse Ox 10/21/21 09:04 36.7 C 53 L 18 120/54 L 99
[2021-10-21] MEDS ORDERED: BUPIVACAINE/EPINEPHRINE 0.25% 1:200,000 30 ML VIAL ONE (10:05)
[2021-10-21] MEDS ORDERED: PHENYLEPHRINE 100MCG/ML 5ML SYR ONE (10:38)
[2021-10-21] MEDS ORDERED: ROCURONIUM BROMIDE 10 MG/ML 5 ML VIAL IV ONE (10:38)
[2021-10-21] MEDS ORDERED: ePHEDrine sulfate 50 MG/ML AMP ONE (10:38)
[2021-10-21] MEDS ORDERED: LIDOCAINE 2% 2 ML VIAL/AMP(20MG/ML) INFIL ONE (10:38)
[2021-10-21] MEDS ORDERED: PROPOFOL IV EMULSION 10 MG/ML 20 ML VIAL IV ONE (10:38)
[2021-10-21] MEDS ORDERED: DEXAMETHASONE SOD INJ 4 MG/ML VIAL ONE (10:38)
[2021-10-21] MEDS ORDERED: GLYCOPYRROLATE 0.2 MG/ML VIAL ONE (10:38)
[2021-10-21] MEDS ORDERED: ONDANSETRON INJ 2 MG/ML 2 ML VIAL ONE (10:38)
[2021-10-21] MEDS ORDERED: FLOSEAL HEMOSTATIC MATRIX 10ML TOP ONE (11:13)
--- NOTE | 2021-10-21 12:39 | Operative Report ---
Post Operative Report Pre & Post Diagnosis Operation Date: 10/21/21 09:35 Pre-Op Diagnosis: Spinal Stenosis, Lumbar Region with Neurogenic Cla Post-Op Diagnosis: Spinal Stenosis, Lumbar Region with Neurogenic Cla I identified the patient and participated in the time-out.: Yes Procedure Operation Date: 10/21/21 09:35 Actual Procedures #1 removal of posterior instrumentation and connector L2. #2 exploration of fusion L2-L3. #3 lumbar decompression with bilateral medial facetectomies and foraminotomies T12-L1 L1-L2. #4 spinal fusion T10-L2. #5 placement posterior instrumentation T10-T12 with barrel connectors to L2. #6 interbody fusion T12- L1. #7 placement of Spira 8 x 22 mm cage at T12-L1. #8 placement locally harvested morselized autograft in the posterior gutters. #9 placement infuse collagen sponge by master graft in the posterior gutters and I factor and interbody space. Surgeon Anup Winston, Break Up Worker Kwesi Mei Estimated Blood Loss 200 Findings Consistent with Post-Op Diagnosis Specimens None Indications This is a 71-year-old female who presents above-mentioned diagnosis of failed course of nonoperative care she is here for surgical invention. Description of Procedure Patient was met with identified informed consent obtained. Patient was then taken to the operative suite underwent ablation placed in a prone position the Pratt table top Rey frame. All bony prominences well-padded eyes inspected to ensure no external pressure placed upon them. This point the thoracolumbar spine was prepped and draped in a sterile fashion. Sharp dissection with the assistance of Bovie cardiac form down to and exposing the lamina transverse pr ocesses of [id number] L1 and instrumentation at L2-L3. And proceeded move the connector and pedicle screw from L2 explore the fusion mass at L2-L3 noted to be mature and intact. Then performed a complete laminectomy of L1 and T12 from caudal cephalad fashion including medial facetectomies and foraminotomies addressing all neural compression. Pedicle screws were then placed in [id number] bilaterally with assistance of fluoroscopy. By way of transforaminal portion right complete discectomy of T12-L1 was performed endplates curetted to subcortically bone and 8 x 22 mm spiral cage filled I f actor tapped in position. Barrel connectors were attached to the proximal L2-L3 gómez. Gómez was then contoured and placed attached to T10 to the barrel connectors. This locked into final position. Transverse processes of T10-T11 T12-L1 and L2 were then burred to subcortical bleeding bone. Infuse collagen sponge master graft local autograft was placed in the posterior gutters. 15 round MARQUITA drain inserted. The incision was then closed with 1 Vicryl the fascia 2-0 Vicryl subcutaneously and 4 Monocryl for final skin closure. Steri-Strip sterile dressings placed. Patient waken taken PACU stable condition. Please note spinal cord monitoring was utilized at the procedure no changes noted. Lastly Kwesi Mei was present at the entire surgery and while the patient positioning complex portions of the surgery and final skin closure. I attest to the content of the Intraoperative Record and any orders documented therein. Any exceptions are noted below.
--- NOTE | 2021-10-21 12:54 | Fluoroscopy Report ---
FL lumbar spine 2-3V CLINICAL HISTORY: L2-5 REMOVE HARDWARE T11-L2 DFI TECHNIQUE: 2 views were obtained with the C-arm in the OR with the above procedure. Total fluoroscopy time was 25.7 seconds. Total skin dose was 14.7 mGy. Comparison: None available at the time of this dictation. FINDINGS/IMPRESSION: Intraoperative images were obtained of L4-L5 hardware removal and T11-T12 discec rosa and fusion. Please correlate with intraoperative fluoroscopy and operative report. ACT 112: Negative or not required by law. Electronically signed by: Grady Henriquez M.D. 10/21/2021 12:52 PM
[2021-10-21] MEDS ORDERED: ePHEDrine sulfate 50 MG/ML AMP IV PRN (13:28)
[2021-10-21] MEDS ORDERED: HYDROmorphone INJ 1 MG/ML SYRINGE IV PRN ×2 (13:28→15:26)
[2021-10-21] MEDS ORDERED: ATROPINE SULFATE 0.1 MG/ML 10ML SYR IV PRN (13:28)
[2021-10-21] MEDS ORDERED: PHARMACY GLYCEMIC MGMT CONSULT PRN (15:26)
[2021-10-21] MEDS ORDERED: DO NOT ADMINISTER PNEUMOCOCCAL VACCINE PRN (15:26)
[2021-10-21] MEDS ORDERED: MAGNESIUM HYDROXIDE SUSP 30 ML UDC PO PRN (15:26)
[2021-10-21] MEDS ORDERED: bisacodyL 10 MG SUPP PR PRN (15:26)
[2021-10-21] MEDS ORDERED: hydrOXYzine HCl 25 MG TAB PO PRN (15:26)
[2021-10-21] MEDS ORDERED: METOCLOPRAMIDE HCL INJ 5 MG/ML 2 ML VIAL IV PRN (15:26)
[2021-10-21] MEDS ORDERED: SOD PHOSPHATE/SOD BIPHOSPHATE ENEMA 132 ML BTL PR PRN (15:26)
[2021-10-21] MEDS ORDERED: PROMETHAZINE HCL 12.5 MG in SODIUM CHLORIDE 0.9% 50 ML IV PRN (15:26)
[2021-10-21] MEDS ORDERED: NALOXONE HCL 0.4 MG/1 ML VIAL/CARP IV PRN (15:26)
[2021-10-21] MEDS ORDERED: ALUMINUM/MAGNESIUM SUSP 30 ML UDC PO PRN (15:26)
[2021-10-21] MEDS ORDERED: ONDANSETRON 4 MG OD TAB PO PRN (15:26)
[2021-10-21] MEDS ORDERED: DO NOT ADMINISTER FLU VACCINE PRN (15:26)
[2021-10-21] MEDS ORDERED: ACETAMINOPHEN 500 MG TAB PO PRN (15:26)
[2021-10-21] MEDS ORDERED: HYDROmorphone INJ 0.5 MG/0.5 ML SYR IV PRN (15:26)
[2021-10-21] MEDS ORDERED: ACETAMINOPHEN 1,000 MG/100 ML VIAL IV PRN (15:26)
[2021-10-21] MEDS ORDERED: diphenhydrAMINE Capsule 25 MG CAP PO PRN (15:26)
[2021-10-21] MEDS ORDERED: LORazepam 0.5 MG TAB PO PRN (15:26)
[2021-10-21] MEDS ORDERED: FAMOTIDINE 20 MG TAB PO PRN (15:26)
[2021-10-21] MEDS ORDERED: traMADol HCL 50 MG TABLET PO PRN (15:26)
[2021-10-21] MEDS ORDERED: ONDANSETRON INJ 2 MG/ML 2 ML VIAL IV PRN (15:26)
[2021-10-21] MEDS ORDERED: LORazepam 2 MG/1 ML VIAL IV PRN (15:26)
--- NOTE | 2021-10-21 15:36 | Anesthesiology Progress Note ---
Date of Service October 21, 2021 Anesthesia Post Procedure Vital Signs Vital Signs: Temp Pulse Resp BP Pulse Ox 10/21/21 14:45 36.6 C 64 18 119/60 94 10/21/21 14:30 61 9 L 124/58 L 96 10/21/21 14:15 62 12 112/54 L 100 10/21/21 14:05 64 16 109/49 L 97 10/21/21 13:55 63 16 109/60 95 10/21/21 13:45 65 12 121/49 L 95 10/21/21 13:35 36.6 C 69 11 L 111/55 L 98 10/21/21 13:25 66 12 112/55 L 98 10/21/21 13:15 65 13 116/54 L 95 10/21/21 13:09 36.6 C 60 16 107/57 L 98 10/21/21 09:04 36.7 C 53 L 18 120/54 L 99 Transfer of Care Handoff Completed per policy Notes Mental Status: alert / awake / arousable and participated in evaluation Patient Amnestic to Procedure: Yes Nausea / Vomiting: adequately controlled Pain: adequately controlled Airway Patency, RR, SpO2: stable & adequate BP & HR: stable & adequate Hydration State: stable & adequate Anesthetic Complications: no major complications apparent and Pt Satisfied with anesthetic care
[2021-10-21] MEDS ORDERED: ziprasidone HCL 80 MG CAP PO SCH (16:00)
--- NOTE | 2021-10-21 16:33 | Hospitalist Consultation ---
Date of Consultation October 21, 2021 Assessment & Plan (1) Neurogenic claudication due to lumbar spinal stenosis: - s/p T11-T12 decompression with L2-L5 hardware removal. - POD#0. EBL 200 cc - Defer ABX/IVF/pain management/bowel regimen/DVT ppx to primary team. - Rescue Narcan ordered prn. - CBC and BMP tomorrow AM. (2) Hypothyroidism: - Continue levothyroxine 100 mcg daily. (3) Hypertension: - Continue amlodipine 2.5 mg and metoprolol 25 mg this evening. (4) Mood disorder: - Continue risperidone 1 mg in a.m., 2 mg at night. - Continue Geodon 80 mg with dinner. - Continue Celexa 80 mg in the AM. - Continue BuSpar 30 mg twice daily. - Continue bupropion 100 mg twice daily. - Takes metformin twice daily as preventative measure, as she is on Geodon which increases risk for diabetes. No formal diagnosis of diabetes mellitus. (5) History of breast cancer: - In 2015, s/p bilateral mastectomy. - Continue anastrozole. (6) History of CVA (cerebrovascular accident): - Amaurosis fugax 02/2021, at that time an old, smLL infarct found on brain MRI. - On Plavix, hold for POD#0. - Continue statin. - Admit to MedSurg per primary team. - VTE pPx per primary team. - Full code. Supervising Physician Co-Signing Physician Notes Discussed with ROSALES, reviewed record. Agree with the note above. Patient is POD #0 for a T11-T12 decompression and L2-L5 hardware removal. EBL noted. Patient is mildly hypotensive but still within normal limits. Reported the patient had some emotional issues but was otherwise comfortable and stable from medical standpoint. Continue to monitor as noted, repeat laboratory work as ordered. Pain control. PT/OT evaluation. History of Present Illness Reason for Consultation: medication management Requesting Physician: Anup Winston DO Attending Physician: Anup Winston DO History of Present Illness Gina Smith is a 71 y/o female with a past medical history that significant for hypertension, hyperlipidemia, hypothyroidism, diabetes, anxiety, depression, and CVA without residual deficits who was admitted today, 10/21 for lumbar spinal decompressive surgery with Dr. Winston. Hospitalist group consulted for medication management. Today, she is doing okay. She is very emotional over what her recovery from surgery may be like, however without complaints of fever/chills, chest pain, palpitations, shortness of breath, cough, abdominal pain, nausea, vomiting. Has mild back pain that feels muscular, however no severe pain at incision site. Allergies Allergy/AdvReac Type Severity Reaction Status Date / Time clindamycin Allergy Severe Rash Verified 10/21/21 08:36 Cephalosporins Allergy Intermediate Swelling Verified 10/21/21 08:36 Penicillins Allergy Intermediate Swelling Verified 10/21/21 08:36 Home Medications Medication Instructions Recorded Confirmed Type alendronate 70 mg tablet 70 mg PO WK 02/16/21 10/21/21 History amlodipine 2.5 mg tablet 2.5 mg PO HS 02/16/21 10/21/21 History anastrozole 1 mg tablet (Arimidex) 1 mg PO DAILY 02/16/21 10/21/21 History bupropion HCl 100 mg tablet 100 mg PO BID 02/16/21 10/21/21 History buspirone 30 mg tablet 30 mg PO BID 02/16/21 10/21/21 History citalopram 40 mg tablet (Celexa) 80 mg PO QAM 02/16/21 10/21/21 History levothyroxine 100 mcg tablet 100 mcg PO QAM 02/16/21 10/21/21 History meloxicam 15 mg tablet 15 mg PO QAM 02/16/21 10/21/21 History metformin 850 mg tablet 850 mg PO BID 02/16/21 10/21/21 History risperidone 1 mg tablet 2 mg PO QPM 02/16/21 10/21/21 History risperidone 1 mg tablet (Risperdal) 1 mg PO QAM 02/16/21 10/21/21 History ziprasidone HCl 80 mg capsule 80 mg PO .DAILY WITH DAIJA MEAL 02/16/21 10/21/21 History (Geodon) acetaminophen 500 mg tablet 1,000 mg PO Q6H 10/05/21 10/21/21 History (Acetaminophen Extra Strength) atorvastatin 10 mg tablet 10 mg PO HS 10/05/21 10/21/21 History clopidogrel 75 mg tablet (Plavix) 75 mg PO QAM 10/05/21 10/21/21 History gabapentin 600 mg tablet 600 mg PO TID 10/05/21 10/21/21 History ibuprofen 600 mg tablet 600 mg PO Q6H 10/05/21 10/21/21 History nitrofurantoin 100 mg PO BID 10/14/21 10/21/21 History monohydrate/macrocrystals 100 mg capsule (Macrobid) metoprolol succinate 25 mg 25 mg PO HS 10/19/21 10/21/21 History tablet,extended release 24 hr (Toprol XL) Patient History Medical History (Updated 10/21/21 @ 16:40 by Natalia Ndiaye PA-C) Anxiety Bipolar disorder PCP records Depression Glaucoma History of breast cancer 2015 s/p b/l mastectomy Hypertension Hypothyroidism Impaired fasting glucose No DM dx from PCP records, on metformin BID for appetite control d/t being on risperidone per pt Pancreatitis hx Schizoaffective disorder PCP records Stroke Amaurosis fugax 02/2021- small old infarct found on brain MRI (02/16/21)- reason for plavix Per [facility] discharge summary, to f/u with neuro and cardio outpatient (follows with Dr. Voss, ? neurology) Surgical History History of ankle surgery right History of back surgery 2007 and 2011 History of bilateral mastectomy History of cholecystectomy History of foot surgery History of rotator cuff surgery X2 Social History Smoking Status: Never smoker Second Hand Exposure: No; Do You Dip or Chew Tobacco: No; Tobacco Cessation Education Requested by Patient: No Hx Alcohol Use: No Hx Substance Use: No Preferred Language: Kuwaiti Communication Ability: Effective Java Application Developer Required: No Beliefs That Will Affect Care: None Current Living Situation: Spouse Other Information That Helps Us Care for You: No Feels Safe at Home: Yes Safety Concerns: Feels Safe At This Time Assistive Devices: Glasses Review of Systems Review of Systems: Constitutional: No fever/chills, weakness, fatigue, myalgias, anorexia, night sweats Eyes: No diplopia, no worsening or blurred vision ENT: normal hearing, no trouble swallowing Respiratory: No cough, sputum, dyspnea at rest or on exertion Cardiovascular: No chest pain, tightness or palpitations Abdomen: No pain, nausea, vomiting, diarrhea or constipation : Denies dysuria, hematuria, increased urgency/frequency, urinary retention Musculoskeletal: No joint pain, calf pain, swelling Neurologic: No weakness, numbness/tingling, or balance problems Psychiatric: No anxiety or depression Skin: No rash or itch Physical Exam Physical Exam: General: awake, alert, no apparent distress Head: Normocephalic, atraumatic ENT: PERRL, EOMI, no pharyngeal exudate, mucous membranes moist Chest: Clear to auscultation, on room air, no adventitious breath sounds Cardiac: Regular rate and rhythm, no murmur, no JVD, normal peripheral pulses, good capillary refill Abdominal: NABS x 4 quadrants, soft, nontender to palpation, no rebound, guarding or tenderness Extremities: Normal inspection, no peripheral edema or erythema, calfs nontender to palpation Psych: Normal mood and affect Neuro: AAO x 3, strength intact bilaterally and rated 5/5, no motor deficits, speech is clear, no peripheral sensory deficits Skin: bandage in place on low back with drain in tact; no rash or erythema Results & Data Results & Data ([facility]) Vital Signs (Past 12 Hours) Vital Signs Temp Pulse Resp BP Pulse Ox 10/21/21 14:45 36.6 C 64 18 119/60 94 10/21/21 14:30 61 9 L 124/58 L 96 10/21/21 14:15 62 12 112/54 L 100 10/21/21 14:05 64 16 109/49 L 97 10/21/21 13:55 63 16 109/60 95 10/21/21 13:45 65 12 121/49 L 95 10/21/21 13:35 36.6 C 69 11 L 111/55 L 98 10/21/21 13:25 66 12 112/55 L 98 10/21/21 13:15 65 13 116/54 L 95 10/21/21 13:09 36.6 C 60 16 107/57 L 98 10/21/21 09:04 36.7 C 53 L 18 120/54 L 99 Laboratory Results Lumbar Spine X-Ray 10/21/21 09:35 FL lumbar spine 2-3V CLINICAL HISTORY: L2-5 REMOVE HARDWARE T11-L2 DFI TECHNIQUE: 2 views were obtained with the C-arm in the OR with the above procedure. Total fluoroscopy time was 25.7 seconds. Total skin dose was 14.7 mGy. Comparison: None available at the time of this dictation. FINDINGS/IMPRESSION: Intraoperative images were obtained of L4-L5 hardware removal and T11-T12 discectomy and fusion. Please correlate with intraoperative fluoroscopy and operative report. ACT 112: Negative or not required by law. Electronically signed by: Grady Henriquez M.D. 10/21/2021 12:52 PM Diagnostic Findings Lumbar Spine X-Ray 10/21/21 09:35 FL lumbar spine 2-3V CLINICAL HISTORY: L2-5 REMOVE HARDWARE T11-L2 DFI TECHNIQUE: 2 views were obtained with the C-arm in the OR with the above procedure. Total fluoroscopy time was 25.7 seconds. Total skin dose was 14.7 mGy. Comparison: None available at the time of this dictation. FINDINGS/IMPRESSION: Intraoperative images were obtained of L4-L5 hardware removal and T11-T12 discectomy and fusion. Please correlate with intraoperative fluoroscopy and operative report. ACT 112: Negative or not required by law. Electronically signed by: Grady Henriquez M.D. 10/21/2021 12:52 PM PG Care Time/CCT Total # of Minutes Spent Total Time Spent with Patient: Total time spent is greater than 50% in coordination of care (as documented) at patient's floor/unit and/or counseling patient: Coding Level of Care Code 78363 Inpt Consult Level 3 Diagnoses Neurogenic claudication due to lumbar spinal stenosis M48.062 Hypothyroidism E03.9 Hypertension I10 Mood disorder F39 History of breast cancer Z85.3 History of CVA (cerebrovascular accident) Z86.73
[2021-10-21] MEDS ORDERED: CARBOHYDRATES FOR HYPOGLYCEMIA PO PRN (17:00)
[2021-10-21] MEDS ORDERED: GLUCAGON FOR INJ 1 MG VIAL IM PRN (17:00)
[2021-10-21] MEDS ORDERED: GLUCOSE 40% GEL 15 GM TUBE PO PRN (17:00)
[2021-10-21] MEDS ORDERED: DEXTROSE 50% 50 ML SYRINGE IV PRN (17:00)
[2021-10-21] MEDS ORDERED: GLUCOSE 10 TAB/TUBE PO PRN (17:00)
[2021-10-21] MEDS: GABAPENTIN 600 MG TAB PO SCH ×2 (17:42→20:56)
[2021-10-21] MEDS: SODIUM CHLORIDE 0.9% 1000ML 1,000 ML IV SCH ×2 (18:02→23:23)
[2021-10-21] MEDS: INSULIN ASPART PER UNIT SC SCH (20:41)
[2021-10-21] MEDS: DOCUSATE SODIUM/SENNA 50/8.6MG TAB PO SCH (20:54)
[2021-10-21] MEDS: buPROPion HCl 100 MG TABLET PO SCH (20:54)
[2021-10-21] MEDS: busPIRone 15 MG TAB PO SCH (20:55)
[2021-10-21] MEDS: amLODIPine BESYLATE 5 MG TAB PO SCH (20:56)
[2021-10-21] MEDS: risperiDONE 2 MG TABLET PO SCH (20:57)
[2021-10-21] MEDS: ATORVASTATIN 10 MG TAB PO SCH (20:57)
[2021-10-21] MEDS: METOPROLOL SUCC 25MG EXT REL TAB PO SCH (20:57)
[2021-10-21] MEDS ORDERED: VANCOMYCIN HCL 1,250 MG in SODIUM CHLORIDE 0.9% 250 ML IV SCH (21:00)
[2021-10-21] MEDS ORDERED: NITROFURANTOIN MONOHYDRATE 100 MG CAP PO SCH (21:00)
[2021-10-22] MEDS: POLYETHYLENE (MIRALAX) 17 GM PACK PO SCH ×5 (05:33→23:44)
[2021-10-22] MEDS: LEVOTHYROXINE SODIUM 100 MCG TABLET PO SCH (05:44)
[2021-10-22] MEDS: oxyCODONE HCL IR 5 MG TAB (IMMEDIATE RELEASE) PO PRN ×4 (06:39→21:29)
[2021-10-22 06:51] LABS: Basophils # (auto) 0.01 K/uL (0-0.2); Basophils % (auto) 0.1 %; Hematocrit (blood only) 28.8 % (37-47); Hemoglobin 9.8 g/dL (12.0-16.0); Immature Granulocytes # (auto) 0.02 K/uL (0.00-0.02); Immature Granulocytes % (auto) 0.2 %; Lymphocytes # (auto) 0.74 K/uL (1.2-3.4); Lymphocytes % (auto) 6.6 %; Mean Corpuscular Volume 91.1 fL (80-100); Mean Platelet Volume 9.9 fL (7.4-10.4); Monocytes # (auto) 0.85 K/uL (0.11-0.59); Monocytes % (auto) 7.6 %; Neutrophils # (auto) 9.62 K/uL (1.4-6.5); Neutrophils % (auto) 85.5 %; Platelet Count 305 K/uL (130-400); RDW Coefficient of Variation 13.9 % (11.5-14.5); RDW Standard Deviation 46.7 fL (36.4-46.3); Red Blood Count 3.16 M/uL (4.2-5.4); White Blood Count 11.24 K/uL (4.8-10.8)
[2021-10-22 07:00] LABS: BUN Creatinine Ratio 25.6 (10-20); Calcium 9.1 mg/dl (8.5-10.1); Creatinine Clr Calc Pharmacy 63.5 ml/min; Est GFR (African American) 87.4 ml/min; Est GFR (Non-African American) 75.4 ml/min; Potassium 4.4 mmol/L (3.5-5.1)
[2021-10-22 07:54] LABS: Estimated Average Glucose 105 mg/dl; Hemoglobin A1C 5.3 % (4.5-5.6)
[2021-10-22] MEDS: INSULIN ASPART PER UNIT SC SCH (08:03)
[2021-10-22] MEDS: ANASTROZOLE 1 MG TAB PO SCH (08:19)
[2021-10-22] MEDS: buPROPion HCl 100 MG TABLET PO SCH ×2 (08:19→21:34)
[2021-10-22] MEDS: dexAMETHasone 6 MG in SYRINGE 0 ML IV SCH (08:19)
[2021-10-22] MEDS: risperiDONE 1 MG TABLET PO SCH (08:19)
[2021-10-22] MEDS: CITALOPRAM 40 MG TAB PO SCH (08:19)
[2021-10-22] MEDS: busPIRone 15 MG TAB PO SCH ×2 (08:19→21:30)
[2021-10-22] MEDS: GABAPENTIN 600 MG TAB PO SCH ×3 (08:20→21:33)
--- NOTE | 2021-10-22 08:31 | Orthopedic Progress Note ---
Date of Service October 22, 2021 Assessment & Plan (1) Neurogenic claudication due to lumbar spinal stenosis: Plan: This time initiate physical therapy monitor MARQUITA output. We will assess whether she is a candidate for rehab versus home in the next few days. Admission and Anticipated Discharge Date Admission Date: October 21, 2021 Subjective Back pain is controlled right leg pain markedly improved Physical Exam Physical Exam: On exam she is in bed at this time. She is comfortable. Is good strength testing. Results & Data ([facility]) Vital Signs (Past 12 Hours) Vital Signs Temp Pulse Resp BP Pulse Ox 10/22/21 03:29 36.6 C 65 18 108/67 94 10/22/21 02:10 36.4 C L 65 16 112/58 L 92 10/21/21 20:50 36.3 C L 16 125/66 96
--- NOTE | 2021-10-22 10:32 | Pharmacy Report ---
Pharmacy Glycemic Sign Off Nt - Date of Service October 22, 2021 - Assessment & Plan ASSESSMENT: * Pharmacy was consulted by Dr Winston on 10/21/21 for glycemic control and to write orders per [facility] inpatient glycemic control protocol. * Major changes made by pharmacy to antidiabetic regimen include: * Adding NovoLog CF * Patient has been receiving 0 units of insulin per day for adequate glycemic control, patient refuses to have any insulin * BSGs ranging 134- 185 mg/dl * Do not anticipate further changes in patient status that would quickly deteriorate glycemic control (i.e. patient to be NPO for upcoming procedure, steroids tapering, starting tube feedings, etc). PLAN FOR INPATIENT GLYCEMIC CONTROL: * Discontinue NovoLog per scale ACHS/Q6hrs while NPO * Resume Metformin 850mg PO BID home medication * A1c 5.3% * Pharmacy is signing off of glycemic consult and will no longer be making adjustments to inpatient regimen. Please feel free to re-consult if needed. Thank you.
[2021-10-22] MEDS: SODIUM CHLORIDE 0.9% 1000ML 1,000 ML IV SCH (11:12)
--- NOTE | 2021-10-22 13:03 | Hospitalist Progress Note ---
Date of Service October 22, 2021 Assessment & Plan (1) Neurogenic claudication due to lumbar spinal stenosis: Plan: - s/p T11-T12 decompression with L2-L5 hardware removal. - POD#1 - Pain medications as ordered by Dr. Winston - PT/OT eval - Recommend IS use q1h while awake for atelectasis/pna prevention - Rescue Narcan ordered prn. - Stool softeners to prevent constipation - DVT ppx as per primary service - d/c sullivan and cap fluids (2) Hypothyroidism: Plan: - Continue levothyroxine 100 mcg daily. (3) Hypertension: Plan: - Continue amlodipine 2.5 mg and metoprolol 25 mg this evening. - BP well controlled (4) Mood disorder: Plan: - Continue risperidone 1 mg in a.m., 2 mg at night. - Continue Geodon 80 mg with dinner. - Continue Celexa 80 mg in the AM. - Continue BuSpar 30 mg twice daily. - Continue bupropion 100 mg twice daily. - Takes metformin twice daily as preventative measure, as she is on Geodon which increases risk for diabetes. No formal diagnosis of diabetes mellitus. (5) History of breast cancer: Plan: - In 2015, s/p bilateral mastectomy. - Continue anastrozole. (6) History of CVA (cerebrovascular accident): Plan: - Amaurosis fugax 02/2021, at that time an old, small infarct found on brain MRI. - On Plavix, resume 48 hours post op - Continue statin. Plan: Recommendations/orders as outlined above. Can resume Plavix 48 hours post operatively if ok with Dr. Winston. No further recommendations or suggestions at this time. Thank you for allowing us to participate in the care of your patient, will sign off but continue to follow peripherally and perform daily chart checks. Above plan of care will be discussed with Dr. Vazquez. Admission and Anticipated Discharge Date Admission Date: October 21, 2021 Subjective Patient was seen on daily rounds this morning. She is postop day 1 following lumbar decompression and fusion by Dr. Winston. She reports that her back pain is controlled. Denies radicular symptoms. She denies chest pain, dyspnea, N/V/D, or headaches. Currently still has Sullivan catheter in place. She is passing flatus but has not had a bowel movement since surgery. Review of Systems Review of Systems: All systems reviewed and are unremarkable except as noted in HPI and below. Denies fever, chills, fatigue, headache, nasal congestion, sore throat, cough, chest pain, shortness of breath, palpitations, orthopnea, PND, abdominal pain, n/v/d, constipation, joint pain or swelling, easy bruising or bleeding, skin lesions or rashes. Physical Exam Physical Exam: GENERAL: 71 yo well-developed, well-nourished WF. NAD. LUNGS: Clear to auscultation bilaterally. No W/R/R. CARDIOVASCULAR: Regular rate and rhythm. No M/G/R. No JVD. ABDOMEN: Soft, non-tender and non-distended. BS normoactive x 4 quad. EXTREMITIES: No edema. Non-tender. Peripheral pulses +2/4. NEUROLOGIC: A&O x3. PSYCHIATRIC: Cooperative. Appropriate mood and affect. SKIN: Warm, dry, intact. No rashes or lesions. Back incision dressing is clean/dry. MARQUITA drain visualized with serosanguineous drainage. Results & Data Results & Data ([facility]) Vital Signs (Past 12 Hours) Vital Signs Temp Pulse Resp BP Pulse Ox 10/22/21 11:27 36.9 C 69 16 112/64 95 10/22/21 11:10 36.6 C 69 16 112/64 95 10/22/21 08:31 36.8 C 70 16 114/69 95 10/22/21 08:00 95 10/22/21 03:29 36.6 C 65 18 108/67 94 10/22/21 02:10 36.4 C L 65 16 112/58 L 92 Laboratory Results 10/22/21 06:02 10/22/21 06:02 PG Care Time/CCT Total # of Minutes Spent Total Time Spent with Patient: Total time spent is greater than 50% in coordination of care (as documented) at patient's floor/unit and/or counseling patient: Coding Level of Care Code 73737 Subseq Hosp Care Lvl 2 Diagnoses Neurogenic claudication due to lumbar spinal stenosis M48.062 Hypothyroidism E03.9 Hypertension I10 Mood disorder F39 History of breast cancer Z85.3 History of CVA (cerebrovascular accident) Z86.73
[2021-10-22] MEDS: metFORMIN HCL 850 MG TAB PO SCH (17:19)
[2021-10-22] MEDS: ziprasidone HCL 80 MG CAP PO SCH (17:19)
[2021-10-22] MEDS: ATORVASTATIN 10 MG TAB PO SCH (21:30)
[2021-10-22] MEDS: METOPROLOL SUCC 25MG EXT REL TAB PO SCH (21:31)
[2021-10-22] MEDS: DOCUSATE SODIUM/SENNA 50/8.6MG TAB PO SCH (21:33)
[2021-10-22] MEDS: amLODIPine BESYLATE 5 MG TAB PO SCH (21:33)
[2021-10-22] MEDS: risperiDONE 2 MG TABLET PO SCH (21:34)
[2021-10-23] MEDS: POLYETHYLENE (MIRALAX) 17 GM PACK PO SCH ×4 (05:46→22:09)
[2021-10-23] MEDS: LEVOTHYROXINE SODIUM 100 MCG TABLET PO SCH (05:46)
[2021-10-23] MEDS: oxyCODONE HCL IR 5 MG TAB (IMMEDIATE RELEASE) PO PRN ×4 (05:49→20:55)
[2021-10-23] MEDS: busPIRone 15 MG TAB PO SCH ×2 (10:00→20:57)
[2021-10-23] MEDS: GABAPENTIN 600 MG TAB PO SCH ×3 (10:00→21:02)
[2021-10-23] MEDS: buPROPion HCl 100 MG TABLET PO SCH ×2 (10:01→20:57)
[2021-10-23] MEDS: CITALOPRAM 40 MG TAB PO SCH (10:01)
[2021-10-23] MEDS: risperiDONE 1 MG TABLET PO SCH (10:01)
[2021-10-23] MEDS: dexAMETHasone 6 MG in SYRINGE 0 ML IV SCH (10:02)
[2021-10-23] MEDS: metFORMIN HCL 850 MG TAB PO SCH ×2 (10:02→17:39)
[2021-10-23] MEDS: ANASTROZOLE 1 MG TAB PO SCH (10:03)
--- NOTE | 2021-10-23 10:33 | Orthopedic Progress Note ---
Date of Service October 23, 2021 Assessment & Plan (1) Neurogenic claudication due to lumbar spinal stenosis: Plan: At this time we will plan for activity as tolerated today monitor MARQUITA output hopefully work toward final disposition on Sunday. Admission and Anticipated Discharge Date Admission Date: October 21, 2021 Subjective Patient is complaining mostly of back pain today she is tolerating physical therapy. Physical Exam Physical Exam: On exam she is good strength testing appears comfortable. Results & Data ([facility]) Vital Signs (Past 12 Hours) Vital Signs Temp Pulse Resp BP Pulse Ox 10/23/21 10:10 116/71 10/23/21 09:59 66 97/58 L 10/23/21 08:23 36.5 C 67 16 120/72 91 10/22/21 22:48 36.6 C 74 18 173/71 H 95
[2021-10-23] MEDS: ziprasidone HCL 80 MG CAP PO SCH (17:38)
[2021-10-23] MEDS: risperiDONE 2 MG TABLET PO SCH (20:56)
[2021-10-23] MEDS: METOPROLOL SUCC 25MG EXT REL TAB PO SCH (20:56)
[2021-10-23] MEDS: DOCUSATE SODIUM/SENNA 50/8.6MG TAB PO SCH (20:56)
[2021-10-23] MEDS: ATORVASTATIN 10 MG TAB PO SCH (20:57)
[2021-10-23] MEDS: amLODIPine BESYLATE 5 MG TAB PO SCH (20:59)
[2021-10-24] MEDS: oxyCODONE HCL IR 5 MG TAB (IMMEDIATE RELEASE) PO PRN ×4 (02:14→21:27)
[2021-10-24] MEDS: POLYETHYLENE (MIRALAX) 17 GM PACK PO SCH ×2 (05:43→12:29)
[2021-10-24] MEDS: LEVOTHYROXINE SODIUM 100 MCG TABLET PO SCH (05:43)
[2021-10-24] MEDS: dexAMETHasone 6 MG in SYRINGE 0 ML IV SCH (07:48)
[2021-10-24] MEDS: CITALOPRAM 40 MG TAB PO SCH (07:49)
[2021-10-24] MEDS: risperiDONE 1 MG TABLET PO SCH (07:49)
[2021-10-24] MEDS: metFORMIN HCL 850 MG TAB PO SCH ×2 (07:49→17:15)
[2021-10-24] MEDS: GABAPENTIN 600 MG TAB PO SCH ×3 (07:49→20:49)
[2021-10-24] MEDS: buPROPion HCl 100 MG TABLET PO SCH ×2 (07:49→20:49)
[2021-10-24] MEDS: busPIRone 15 MG TAB PO SCH ×2 (07:49→20:49)
[2021-10-24] MEDS: ANASTROZOLE 1 MG TAB PO SCH (07:49)
--- NOTE | 2021-10-24 10:09 | Orthopedic Progress Note ---
Date of Service October 24, 2021 Assessment & Plan (1) Neurogenic claudication due to lumbar spinal stenosis: Plan: At this time we will continue physical therapy await placement for rehab. We will discontinue her drain today. Admission and Anticipated Discharge Date Admission Date: October 21, 2021 Subjective Patient complaining mostly of back pain but leg pain markedly improved Physical Exam Physical Exam: Patient is good strength testing. Results & Data ([facility]) Vital Signs (Past 12 Hours) Vital Signs Temp Pulse Resp BP Pulse Ox 10/24/21 06:25 36.8 C 71 18 144/83 H 93
[2021-10-24] MEDS: ziprasidone HCL 80 MG CAP PO SCH (17:15)
[2021-10-24] MEDS: amLODIPine BESYLATE 5 MG TAB PO SCH (20:49)
[2021-10-24] MEDS: DOCUSATE SODIUM/SENNA 50/8.6MG TAB PO SCH (20:49)
[2021-10-24] MEDS: METOPROLOL SUCC 25MG EXT REL TAB PO SCH (20:49)
[2021-10-24] MEDS: risperiDONE 2 MG TABLET PO SCH (20:50)
[2021-10-24] MEDS: ATORVASTATIN 10 MG TAB PO SCH (20:50)
[2021-10-25] MEDS: oxyCODONE HCL IR 5 MG TAB (IMMEDIATE RELEASE) PO PRN ×2 (06:00→11:10)
[2021-10-25] MEDS: LEVOTHYROXINE SODIUM 100 MCG TABLET PO SCH (06:00)
[2021-10-25] MEDS: ANASTROZOLE 1 MG TAB PO SCH (08:50)
[2021-10-25] MEDS: buPROPion HCl 100 MG TABLET PO SCH (08:51)
[2021-10-25] MEDS: CITALOPRAM 40 MG TAB PO SCH (08:51)
[2021-10-25] MEDS: busPIRone 15 MG TAB PO SCH (08:51)
[2021-10-25] MEDS: metFORMIN HCL 850 MG TAB PO SCH (08:51)
--- NOTE | 2021-10-25 08:51 | Discharge Summary ---
Date of Service October 25, 2021 Admission HPI Per Admitting Provider This is a 71-year-old female who presents with chronic persistent back and leg pain. Failing course of nonoperative care she is here for surgical intervention. Admission Exam (Per Admitting) Constitutional WD/WN, vitals as above Eyes normal visual monae by confrontation Neck normal visual inspection Respiratory normal respiratory effort Cardiovascular Extremities: normal capillary refill Gastrointestinal (Abdomen) Inspection/Auscultation: abdomen normal to inspection Musculoskeletal Extremities: extremities normal to inspection and strength 5/5 throughout Skin normal turgor Neurologic normal touch/pain/proprioception and moves all extremities Psychiatric A+Ox3, euthymic affect Discharge Data Consultations 10/21/21 15:26 Consult Hospitalist Routine Procedures Performed Operation Date: 10/21/21 09:35 Actual Procedures p T11-L2 Decompression and Fusion, L2-L5 Hardware Removal, Spinal Cord Monitoring(Not Applicable) - Anup Winston DO Hospital Course (1) Neurogenic claudication due to lumbar spinal stenosis: Patient is being discharged to rehab on postoperative day 4 status post thoracolumbar decompression and fusion with hardware removal L2-5. She is doing well postoperatively. Pain is greatly improved compared to preoperative status. She is had a bowel movement prior to discharge. She is making progress daily and physical therapy. Lab values have been stable throughout her hospital stay. Discharge Instructions ACTIVITY RECOMMENDATIONS: SELF CARE INSTRUCTIONS AFTER THORACIC/LUMBAR FUSIONS 1. You may walk to your tolerance. It is good exercise for your legs and back. Expect some back and intermittent leg aches and pains. 2. You may perform "counter-top" level activities (make a sandwich, landy with a project, etc.). 3. No bending or lifting of more than 10 pounds or back twisting of any nature (roll like a log when turning in bed). 4. You may ride in a car for 20-30 minutes at a time. No driving until after your first visit with your doctor. 5. Frequent changes of position and restricting sitting to 30 minutes at a time will help limit the amount of back spasms and stiffness you may experience. 6. You may discontinue the use of ambulatory aids (cane, crutches, etc.) once your strength and confidence allow. 7. You may mixing machine attendant the shower and let water strike your incision when you arrive home at least once daily. Do not take a tub bath, sit in a hot tub or go into a swimming pool until after your first recheck in the office. SPECIAL CARE INSTRUCTIONS: VERY IMPORTANT TO READ AND REVIEW A. Your surgical incision has been closed with a cosmetic suture under the skin that will dissolve in about 6 weeks. In 14 days, you can use a pair of clean scissors and cut the suture that is left outside of the skin at the ends of your incision. 1. The small skin tapes can be removed 7 days after surgery if they have not fallen off by that point. 2. You may keep the wound open to air as much as possible to promote healing after post-op day number 5 unless told otherwise by your doctor. 3. If you think the wound looks like it is becoming infected (redness or worsening drainage) and/or you are experiencing fever, chill or worsening back pain and muscle spasms, contact the office so that we may evaluate you as soon as possible. B. Complications are uncommon, but please contact us if you have any signs or symptoms of: 1. wound infection (fever higher than 102.5 degrees F, redness, separation of wound, drainage, or increasing pain from the incision) 2. blood clots in legs (pain, swelling, redness and warmth in legs) 3. urinary tract infection (fever higher than 102.5 degrees F, burning upon urination or increased frequency of urination) 4. nerve problems (inability to walk on your toes or heels, numbness, loss of bowel or bladder control) 5. any other symptoms that concern you C. Please call the office at if you have any concerns or questions about your operation or recovery. D. No smoking! Smoking drastically decreases the chance of a solid fusion. E. Do not take any anti-inflammatory medications (Indocin, Advil, Motrin, Asp irin, Naprosyn, etc.) as these may inhibit the chance of a solid fusion. Tylenol is okay to take for pain. MANAGING PAIN AFTER SPINAL SURGERY 1. Narcotic medication is intended for short-term use and will be provided for surgical pain. Surgical pain usually lasts for a period of 4-6 weeks. Narcotic medication includes Percocet, Vicodin, Darvocet, Tylenol #3 or Lortab. 2. Longer-term pain is more appropriately treated with non-narcotic medication such as Tylenol ES. 3. Muscle spasm is not appropriately treated with narcotics. Muscle relaxers such as Soma, Flexeril or Skelaxin can be used along with Tylenol ES. 4. Remember that we all live with some "aches and pains". This is not unusual or uncommon after an injury or as we get older. a. Back pain is expected and may include muscle spasms for 4 to 6 weeks after surgery. The pain should gradually improve. If the pain worsens for no apparent reason, please contact the office. b. Intermittent leg pain may also be experienced and should not be concerned about unless it worsens for no apparent reason. If so, please contact the office. 5. We will provide appropriate medication within the normal guidelines of their prescribed use. We will also be very cautious and aware of potential abuse and extended duration of patients' medication needs. a. Pain medications are for your comfort and to assist with sleep and rest so that the tissue can heal. They are not provided in order to return to normal activity and should not be used through the day. To do so or worsening pain at night can result from ongoing tissue damage and development of tolerance to the prescribed medicine. 6. Please allow 2-3 days to process refills. Prescriptions will not be mailed but must be picked up at the office. FOLLOW UP VISIT: Keep your scheduled follow-up appointment. Any questions, please call the office at .
[2021-10-25] MEDS: risperiDONE 1 MG TABLET PO SCH (08:52)
[2021-10-25] MEDS: GABAPENTIN 600 MG TAB PO SCH ×2 (08:52→13:00)
== END 2021-10-25 14:30 | DRG 455 ==
LOC: ASU 07:55 → 3N 12:45

== ENCOUNTER 2022-09-12 08:30 | Inpatient (IN) ==
--- NOTE | 2022-09-04 15:32 | Anesthesiology Consultation ---
Date of Service September 04, 2022 Assessment & Plan (1) Encounter for pre-operative examination: Plan - right arm restriction. - PCP pre-op evaluation 08/28/22: "...pre-op clearance for spine surgery...intermediate risk...class II..." - cardiology pre-op evaluation 08/18/22: "...back surgery...no sob or chest pain...has worked with her psychiatrist to come off of most o [facility] psych medications...stable...low risk to proceed with her back surgery and does not need further cardiac testing prior...can hold her Plavix per surgery's discretion...QTc has improved with the decrease in her psychiatric medications. ..QT prolonging medications should be avoided as much as possible..." - COVID screening: Per pcu rn on 09/04/2022: Travel screen negative, no known COVID-19 positive contacts or current COVID-19 related symptoms in past 2 weeks. To surgeon's discretion if preop COVID testing is needed. Chart Review Chart Review: Acceptable Risk for Surgery and Patient NOT seen in Pre Admission Testing History Surgery Operation Date: 09/12/22 10:05 Proposed Procedures p T9-T10 Decompression and Fusion, T10-12 Hardware Removal, Spinal Cord Monitoring - Anup Winston DO Height/Weight Height: 5 ft 2 in Weight: 77.111 kg Allergies Allergy/AdvReac Type Severity Reaction Status Date / Time clindamycin Allergy Severe Rash Verified 09/04/22 11:21 Cephalosporins Allergy Intermediate Swelling Verified 09/04/22 11:21 Penicillins Allergy Intermediate Swelling Verified 09/04/22 11:21 Medications Home Medications Medication Instructions Recorded Confirmed Last Taken amlodipine 2.5 mg tablet 2.5 mg PO 02/16/21 09/04/22 10/20/21 18:15 levothyroxine 100 mcg tablet 100 mcg PO QA 02/16/21 09/04/22 10/21/21 06:15 atorvastatin 10 mg tablet 10 mg PO 10/05/21 09/04/22 10/20/21 18:15 clopidogrel 75 mg tablet (Plavix) 75 mg PO QA 10/05/21 09/04/22 10/14/21 metoprolol succinate 25 mg 25 mg PO 10/19/21 09/04/2222 18:15 tablet,extended release 24 hr (Toprol XL) Past Medical History Medical History (Updated 09/04/22 @ 15:31 by Holley Mathias PA-C) Anxiety Bipolar disorder PCP records--pt states she was taken off all her psychiatric meds Depression Glaucoma History of breast cancer 2016 s/p b/l mastectomy Hypertension Hypothyroidism Mood disorder Nausea and vomiting after administration of anesthetic agent Neurogenic claudication due to lumbar spinal stenosis Pancreatitis hx Schizoaffective disorder PCP records Stroke Amaurosis fugax 02/2021- small old infarct found on brain MRI (02/16/21)- reason for plavix Per [facility] discharge summary, to f/u with neuro and cardio outpatient (follows with Dr. Voss, ? neurology) Past Family History Family History (Updated 09/04/22 @ 11:25 by Addie Shields RN) Other No family history of adverse response to anesthesia Past Surgical History Surgical History (Updated 09/04/22 @ 15:37 by Holley Mathias PA-C) History of ankle surgery right History of back surgery 2007 and 2011 History of bilateral mastectomy right arm limb restriction History of cholecystectomy History of foot surgery History of rotator cuff surgery X2 History of spinal fusion 10/21/21--spinal fusion T10-L2 Dr. Winston @ [facility] T11-L2 Grade 1 view, [place] 2, ETT 7.5. Social History Smoking Status: Never smoker Do You Dip or Chew Tobacco: No Hx Alcohol Use: Yes Alcohol type: wine alcohol intake frequency: a few times a month Hx Substance Use: No substance use type: does not use Lab Results Anesthesia Preop Results Results Anesthesia Widget: WBC 6.24 K/ul (4.8-10.8) 08/17/22 Hgb 12.1 g/dl (12.0-16.0) 08/17/22 Hct 38.1 % (37.0-47.0) 08/17/22 Plt 351 K/uL (130-400) 08/17/22 Na 137 mmol/L (136-145) 08/17/22 K 4.4 mmol/L (3.5-5.1) 08/17/22 Cl 104 mmol/L (98-107) 08/17/22 CO2 24 mmol/L (21-32) 08/17/22 BUN 18 mg/dl (6-23) 08/17/22 Creat 0.86 mg/dl (0.6-1.2) 08/17/22 Glucose Level 125 mg/dl (70-99(Fasting)) H 08/17/22 PT 10.1 Seconds (9.0-12.0) 08/17/22 PTT 25.0 Seconds (21.0-31.0) 08/17/22 INR 0.9 (0.9-1.1) 08/17/22 Urine Color Yellow 08/17/22 Urine Appearance Cloudy (Clear) A 08/17/22 Urine pH 7.0 (4.5-7.5) 08/17/22 Urine Specific [place] 1.014 (1.000-1.030) 08/17/22 Urine Protein Negative (Negative) 08/17/22 Urine Glucose (UA) Negative (Negative) 08/17/22 Urine Ketones 1+ (Negative) H 08/17/22 Urine Blood Negative (Negative) 08/17/22 Urine Nitrite Positive (Negative) A 08/17/22 Urine Bilirubin Negative (Negative) 08/17/22 Urine Urobilinogen Negative (Negative) 08/17/22 Urine Leukocyte Esterase Trace (Negative) H 08/17/22 Urine WBC (Auto) 1-5 /hpf (0-5) 08/17/22 Urine RBC (Auto) 0-4 /hpf (0-4) 08/17/22 Urine Hyaline Casts (Auto) 0 /lpf (0-5) 08/17/22 Urine Epithelial Cells (Auto) 5-10 /lpf (0-5) H 08/17/22 Urine Bacteria (Auto) 4+ (Negative) H 08/17/22 Blood Type B Positive 08/17/22 Antibody Screen NEGATIVE 08/17/22 Testing Electrocardiogram Date: 08/17/22 NSR, rate 97 bpm Long QTc Chest X-Ray Date: 08/17/22 Postoperative findings within the spine are incidentally noted. Lung volumes are normal. There is no pneumothorax or pleural effusion. There is no consolidation. No evidence for pulmonary edema. Cardiac size is normal. Mediastinal contours are normal. IMPRESSION: No acute cardiopulmonary findings. Echocardiogram Date: 02/17/21 EF 55-60% Normal LV wall motion Mild mitral regurgitation Mild aortic regurgitation Stress Test Date: 10/18/21 Negative pharmacologic stress echo and EKG for ischemia at 83% MPHR EF 70% Normal LV wall motion Other Testing Thoracic spine MRI 03/31/22 1. The examination is severely compromised by motion artifact and extensive artifact from metallic spinal hardware. 2. There is a 1.3 cm cystic structure versus disc fragment posterior to T9 eccentric to the left. This causes significant spinal stenosis at this level, with effacement of the left anterior aspect of the thecal sac and the ventral cord. 3. A posterior disc bulge at T7-T8 abuts the ventral cord. 4. No abnormal postcontrast enhancement is identified. 5. Degenerative disc disease as above with significant endplate edema at T8-T9. Neck CTA 02/16/21 1. No significant stenosis, occlusion, or aneurysm within the cahto of [place]. 2. No significant stenosis, occlusion, or dissection identified within the carotid or vertebral arteries. 3. Please refer to the same day head CT for further evaluation of the brain parenchyma.
[~2022-09-12 08:30] MED LIST changes: -ALBUMIN HUMAN 5% 12.5 GM/250 ML VIAL IV ONE; -SUGAMMADEX SODIUM 200 MG/2 ML VIAL IV ONE
[2022-09-12] MEDS ORDERED: HYDROmorphone INJ 1 MG/ML SYRINGE IV PRN (09:44)
[2022-09-12] MEDS ORDERED: ePHEDrine sulfate 50 MG/ML AMP IV PRN (09:44)
[2022-09-12] MEDS ORDERED: ATROPINE SULFATE 0.1 MG/ML 10ML SYR IV PRN (09:44)
[2022-09-12] MEDS ORDERED: fentaNYL citrate PF 100 MCG/2 ML VIAL IV PRN (09:44)
--- NOTE | 2022-09-12 09:51 | History & Physical Bridge Note ---
Date of Service September 12, 2022 History & Physical Bridge Note I have examined the patient, reviewed the History & Physical and in the interval since the performance of the History & Physical I have noted the following changes of clinical significance: no changes noted
--- NOTE | 2022-09-12 09:52 | History & Physical Report ---
Date of Service September 12, 2022 Assessment & Plan (1) Myelopathy concurrent with and due to spinal stenosis of thoracic region: Plan: T9-T11 decompression and fusion, T10 and T12 hardware removal History of Present Illness Chief Complaint: Bilateral leg weakness Primary Care Provider: Leonie Dowling MD This is a 72-year-old female well-known to me presents with marked decline in neurologic status. She has evidence of a severe thoracic stenosis with neuro decline. Is here for surgical intervention. Allergies Allergy/AdvReac Type Severity Reaction Status Date / Time clindamycin Allergy Severe Rash Verified 09/12/22 08:57 Cephalosporins Allergy Intermediate Swelling Verified 09/12/22 08:57 Penicillins Allergy Intermediate Swelling Verified 09/12/22 08:57 Home Medications Medication Instructions Recorded Confirmed Type amlodipine 2.5 mg tablet 2.5 mg PO HS 02/16/21 09/12/22 History levothyroxine 100 mcg tablet 100 mcg PO QAM 02/16/21 09/12/22 History atorvastatin 10 mg tablet 10 mg PO HS 10/05/21 09/12/22 History clopidogrel 75 mg tablet (Plavix) 75 mg PO QAM 10/05/21 09/12/22 History metoprolol succinate 25 mg 25 mg PO HS 10/19/21 09/12/22 History tablet,extended release 24 hr (Toprol XL) risperidone 0.5 mg tablet 0.5 mg PO BID 09/08/22 09/12/22 History ropinirole 0.5 mg tablet 0.5 mg PO HS 09/08/22 09/12/22 History acetaminophen 500 mg tablet 1,000 mg PO Q6H PRN Pain 09/12/22 09/12/22 History gabapentin 600 mg tablet 600 mg PO HS 09/12/22 09/12/22 History Past Med/Surg History Medical History (Updated 09/12/22 @ 09:52 by Anup Winston DO) Anxiety Bipolar disorder PCP records--pt states she was taken off all her psychiatric meds Depression Glaucoma History of breast cancer 2016 s/p b/l mastectomy Hypertension Hypothyroidism Mood disorder Nausea and vomiting after administration of anesthetic agent Neurogenic claudication due to lumbar spinal stenosis Pancreatitis hx RLS (restless legs syndrome) Schizoaffective disorder PCP records Stroke Amaurosis fugax 02/2021- small old infarct found on brain MRI (02/16/21)- reason for plavix Per [facility] discharge summary, to f/u with neuro and cardio outpatient (follows with Dr. Voss, ? neurology) Surgical History History of ankle surgery right History of back surgery 2007 and 2011 History of bilateral mastectomy right arm limb restriction History of cholecystectomy History of foot surgery History of rotator cuff surgery X2 History of spinal fusion 10/21/21--spinal fusion T10-L2 Dr. Winston @ [facility] T11-L2 Grade 1 view, [place] 2, ETT 7.5. Family History (Updated 09/04/22 @ 11:25 by Addie Shields, TOMMIE) Other No family history of adverse response to anesthesia Social History Smoking Status: Never smoker Second Hand Exposure: No; Do You Dip or Chew Tobacco: No; Tobacco Cessation Education Requested by Patient: No Hx Alcohol Use: Yes Alcohol type: wine Hx Substance Use: No Preferred Language: Armenian Communication Ability: Effective Machine Strap Buckler Required: No Beliefs That Will Affect Care: None marital status: Current Living Situation: Spouse Other Information That Helps Us Care for You: No Feels Safe at Home: Yes Safety Concerns: Feels Safe At This Time Assistive Devices: Glasses and Walker Physical Exam Physical Exam: Patient is alert and oriented Heart regular rhythm Lungs clear Results & Data Results & Data Vital Signs (Past 12 Hours) Vital Signs Temp Pulse Resp BP Pulse Ox O2 Del Method 09/12/22 09:00 36.7 C 77 20 129/61 100 Room Air
[2022-09-12] MEDS ORDERED: BUPIVACAINE/EPINEPHRINE 0.25% 1:200,000 30 ML VIAL ONE (10:04)
[2022-09-12] MEDS ORDERED: ceFAZolin 330 MG/ML 1 GM VIAL ONE (10:04)
[2022-09-12] MEDS ORDERED: ALBUMIN HUMAN 5% 12.5 GM/250 ML VIAL IV ONE (10:05)
[2022-09-12] MEDS ORDERED: FAMOTIDINE/PF 20 MG/2 ML VIAL IV ONE (10:05)
[2022-09-12] MEDS ORDERED: ROCURONIUM BROMIDE 10 MG/ML 5 ML VIAL IV ONE (10:09)
[2022-09-12] MEDS ORDERED: PROPOFOL IV EMULSION 10 MG/ML 20 ML VIAL IV ONE (10:09)
[2022-09-12] MEDS ORDERED: LIDOCAINE 2% MPF LOCAL 5 ML VIAL ONE (10:09)
[2022-09-12] MEDS ORDERED: MIDAZOLAM HCL 1 MG/ML 2ML VIAL ONE (10:09)
[2022-09-12] MEDS ORDERED: SUCCINYLCHOLINE CHLORIDE 20 MG/ML 10 ML VIAL IV ONE (10:09)
[2022-09-12] MEDS ORDERED: HYDROmorphone INJ 2 MG/ML SYR/VIAL ONE (10:10)
[2022-09-12] MEDS ORDERED: FLOSEAL HEMOSTATIC MATRIX 10ML TOP ONE (11:08)
[2022-09-12] MEDS ORDERED: ePHEDrine sulfate 50 MG/ML AMP ONE (11:56)
--- NOTE | 2022-09-12 12:30 | Operative Report ---
Post Operative Report Pre & Post Diagnosis Operation Date: 09/12/22 10:05 Pre-Op Diagnosis: Myelopathy concurrent with and due to spinal stenosis of thoracic region Post-Op Diagnosis: Myelopathy concurrent with and due to spinal stenosis of thoracic region I identified the patient and participated in the time-out.: Yes Procedure Operation Date: 09/12/22 10:05 Actual Procedures #1 removal of instrumentation pedicle screws and connectors at T10. #2 exploration of fusion T10-11. #3 decompression T8-T9 T9-10 with bilateral medial facetectomies and foraminotomies. #4 posterior spinal fusion T7-T10. #5 placement posterior segmental instrumentation T7-T9 with barrel connectors at T10. #6 placement of locally harvested morselized autograft and posterior gutters. #7 placement of infuse and master graft in the posterior gutters T7- T10. Surgeon Anup Winston, Childhood Teacher Makayla Butler Estimated Blood Loss 50 Findings Consistent with Post-Op Diagnosis Specimens None Indications This is a 72-year-old female who presents with the above-mentioned diagnosis is here for urgent decompression fusion. Description of Procedure Patient was met with identified informed consent obtained. Patient was then taken to the operative suite underwent patient placed in a prone position on the [facility] top Rey frame. All bony prominences well-padded eyes inspected to ensure no external pressure placed upon the. This point the thoracolumbar spine was prepped and draped in a sterile fashion. Sharp dissection with assistance of Bovie cautery performed down to and exposing the lamina and transverse processes of T7-T8-T9 and the instrumentation T10-T11. I then removed the pedicle screws and connectors from T10. Then performed a complete laminectomy of T9 and T8 to address severe spinal stenosis including bilateral medial facetectomies and foraminotomies. Pedicle screws then placed and T7-T8-T9 in the process greta placed and connected to the T10 area of the greta by way of a barrel connectors. The instrumentation was locked in position and the transverse processes of T7-T8-T9 T10 burred to subcortically bone. Infuse bone sponge from mass graft locally harvested morselized graft was placed in the posterior gutters. 15 round drape drain inserted. The incision was then closed with 1 Vicryl the fascia 2-0 Vicryl subcutaneously and 4 Monocryl for final skin closure. Steri-Strips sterile dressings placed. Patient awakened taken to PACU in stable condition. Please note spinal cord monitoring was utilized at the procedure no changes noted. Lastly Makayla Butler was present at the entire surgeon while the patient positioning complex portions of the surgery and possible closure. I attest to the content of the Intraoperative Record and any orders documented therein. Any exceptions are noted below.
--- NOTE | 2022-09-12 12:47 | Fluoroscopy Report ---
INTRAOPERATIVE RADIOGRAPHS CLINICAL HISTORY: Thoracic spinal fusion surgery. Fluoro time: 41 seconds. Ka,r: 12.90 mGy FINDINGS: 2 spot fluoroscopic views of the lower thoracic spine are presented. There is evidence of m ultilevel laminectomy and posterior fusion throughout the imaged thoracic spine. The levels cannot be delineated on the provided images. The orthopedic hardware appears intact. IMPRESSION: Intraoperative images from thoracic spinal fusion surgery as above. See operative report for detailed findings. Electronically signed by: Asa Rangel M.D. 09/12/2022 12:45 PM
--- NOTE | 2022-09-12 13:58 | Anesthesiology Progress Note ---
Date of Service September 12, 2022 Anesthesia Post Procedure Vital Signs Vital Signs: Temp Pulse Pulse Resp BP Pulse Ox O2 Del Method 09/12/22 13:30 36.5 C 74 14 144/85 H 97 Nasal Cannula 09/12/22 13:20 76 13 149/73 H 98 Nasal Cannula 09/12/22 13:10 73 16 149/77 H 94 Nasal Cannula 09/12/22 13:00 73 14 149/89 H 100 Oxymask 09/12/22 12:47 36.0 C L 71 16 121/75 99 Oxymask 09/12/22 09:00 36.7 C 77 20 129/61 100 Room Air O2 Flow Rate 09/12/22 13:30 3 09/12/22 13:20 3 09/12/22 13:10 3 09/12/22 13:00 5 09/12/22 12:47 8 09/12/22 09:00 Pain Intensity Back: Pain Intensity: 0 Transfer of Care Handoff Completed per policy Notes Mental Status: alert / awake / arousable and participated in evaluation Patient Amnestic to Procedure: Yes Nausea / Vomiting: adequately controlled Pain: adequately controlled Airway Patency, RR, SpO2: stable & adequate BP & HR: stable & adequate Hydration State: stable & adequate Anesthetic Complications: no major complications apparent and Pt Satisfied with anesthetic care
[2022-09-12] MEDS ORDERED: VANCOMYCIN CONSULT ACTIVE PRN (14:18)
[2022-09-12] MEDS ORDERED: DO NOT ADMINISTER FLU VACCINE PRN (14:18)
[2022-09-12] MEDS ORDERED: hydrOXYzine HCl 25 MG TAB PO PRN (14:18)
[2022-09-12] MEDS ORDERED: METOCLOPRAMIDE HCL INJ 5 MG/ML 2 ML VIAL IV PRN (14:18)
[2022-09-12] MEDS ORDERED: PROMETHAZINE HCL 12.5 MG in SODIUM CHLORIDE 0.9% 50 ML IV PRN (14:18)
[2022-09-12] MEDS ORDERED: HYDROmorphone INJ 0.5 MG/0.5 ML SYR IV PRN (14:18)
[2022-09-12] MEDS ORDERED: bisacodyL 10 MG SUPP PR PRN (14:18)
[2022-09-12] MEDS ORDERED: MAGNESIUM HYDROXIDE SUSP 30 ML UDC PO PRN (14:18)
[2022-09-12] MEDS ORDERED: diphenhydrAMINE Capsule 25 MG CAP PO PRN (14:18)
[2022-09-12] MEDS ORDERED: LORazepam 0.5 MG TAB PO PRN (14:18)
[2022-09-12] MEDS ORDERED: LORazepam 2 MG/1 ML VIAL IV PRN (14:18)
[2022-09-12] MEDS ORDERED: SOD PHOSPHATE/SOD BIPHOSPHATE ENEMA 132 ML BTL PR PRN (14:18)
[2022-09-12] MEDS ORDERED: SODIUM CHLORIDE 0.9% 1000ML 1,000 ML IV SCH (14:18)
[2022-09-12] MEDS ORDERED: DO NOT ADMINISTER PNEUMOCOCCAL VACCINE PRN (14:18)
[2022-09-12] MEDS ORDERED: ALUMINUM/MAGNESIUM SUSP 30 ML UDC PO PRN (14:18)
[2022-09-12] MEDS ORDERED: ONDANSETRON 4 MG OD TAB PO PRN (14:18)
[2022-09-12] MEDS ORDERED: ACETAMINOPHEN 1,000 MG/100 ML VIAL IV PRN (14:18)
[2022-09-12] MEDS ORDERED: traMADol HCL 50 MG TABLET PO PRN (14:18)
[2022-09-12] MEDS ORDERED: FAMOTIDINE 20 MG TAB PO PRN (14:18)
[2022-09-12] MEDS ORDERED: ONDANSETRON INJ 2 MG/ML 2 ML VIAL IV PRN (14:18)
[2022-09-12] MEDS ORDERED: NALOXONE HCL 0.4 MG/1 ML VIAL/CARP IV PRN (14:18)
[2022-09-12] MEDS: HYDROmorphone INJ 1 MG/ML SYRINGE IV PRN (16:20)
[2022-09-12] MEDS: dexAMETHasone 6 MG in SYRINGE 0 ML IV SCH ×2 (16:20→22:50)
--- NOTE | 2022-09-12 17:16 | Hospitalist Consultation ---
Date of Consultation September 12, 2022 Assessment & Plan (1) S/P fusion of thoracic spine: -Currently afebrile, hemodynamically stable, and now stable on RA -Perioperative abx, IV fluids, analgesia, and DVT PPX per the primary team -Agree with am CBC and BMP, we will follow -Patient with minimal amount of blood draining from the procedure site, asked her nurse to re-apply her bandage, if any further concerns will reach out to the primary team -Hold plavix for now but with her previous hx of stroke in 2020 would restart as soon as the primary team is comfortable -Thank you for allowing us to participate in the care of this patient, please reach out with any questions or concerns -Medicine will continue to follow (2) Amaurosis fugax of right eye: -Previous hx, typically on Plavix -Would restart Plavix PRUDENCE when the primary team is comfortable with her bleeding risk (3) Hypertension: -Stable -Will continue HS metoprolol, will hold HS amlodipine tonight to avoid hypotension, can continue tomorrow if stable (4) RLS (restless legs syndrome): -Continue requip (5) Bipolar disorder: -Continue BID risperdal (6) Hypothyroidism: -Continue levothyroxine Plan The patient was discussed with Dr. Vazquez at the time of the consult Supervising Physician Co-Signing Physician Notes Patient seen and examined, chart reviewed, case discussed with Thong and I agree with the assessment and plan as above except as otherwise noted Labs and images reviewed Gina is a 72-year-old female s/p thoracic spine fusion. She is seen at the bedside, prior concern for some drainage at procedure site this is not present at time of provider reassessment. She reports she is feeling well and has no acute concerns at time of consultation. She has a past history of amaurosis fugax for which she is on Plavix, reports her vision is currently normal. Denies numbness/tingling/pain/nausea/vomiting at time of bedside evaluation. Lungs are clear, heart rate is regular. Patient does endorse some diminished sensation qualitatively to soft touch in the legs, which is similar to her preoperative status. Otherwise sensation is intact to soft touch in hands and feet bilaterally. Given past history of endometriosis/stroke recommend re starting Plavix tomorrow. Agree with recommendations and management above. History of Present Illness Reason for Consultation: Post-op medical management Requesting Physician: Anup Winston DO Attending Physician: Dr. Mateo Vazquez History of Present Illness Gina is a 72 year old female with a PMH significant for bipolar disorder, schizophrenia, hypothyroidism, HTN, previous CVA in 2020, HTN, and hyperlipidemia who presented to the [facility] OR on 09/12/22 for T9-T10 Decompression and Fusion, Spinal Cord Monitoring, and T10-[address] Winston. Review of her vitals show the patient to be mildly hypertensive at 155/80, afebrile, and stable on 2L NC prior to my exam. Per the operative report, EBL was listed as 50 cc, no anesthesia type or intraoperative complications were reported. At the time of the exam the patient was sitting up in bed, eating dinner, in no acute distress. She states that she is feeling well after the procedure with minimal pain at the procedure site. She denies any other complaints at this time but did state that "I feel something running down my back". On inspection she has a small amount of blood draining from underneath her bandages, but they do not look saturated. She denies any lightheadedness, dizziness, SOB, chest pain, fever, chills, abd pain, nausea, vomiting, or new neurologic symptoms since the procedure. She does not use CPAP at night or oxygen at home. Please refer to Dr. Vazquez's attestation for any changes to the treatment plan Allergies Allergy/AdvReac Type Severity Reaction Status Date / Time clindamycin Allergy Severe Rash Verified 09/12/22 08:57 Cephalosporins Allergy Intermediate Swelling Verified 09/12/22 08:57 Penicillins Allergy Intermediate Swelling Verified 09/12/22 08:57 Home Medications Medication Instructions Recorded Confirmed Type amlodipine 2.5 mg tablet 2.5 mg PO HS 02/16/21 09/12/22 History levothyroxine 100 mcg tablet 100 mcg PO QAM 02/16/21 09/12/22 History atorvastatin 10 mg tablet 10 mg PO HS 10/05/21 09/12/22 History clopidogrel 75 mg tablet (Plavix) 75 mg PO QAM 10/05/21 09/12/22 History metoprolol succinate 25 mg 25 mg PO HS 10/19/21 09/12/22 History tablet,extended release 24 hr (Toprol XL) risperidone 0.5 mg tablet 0.5 mg PO BID 09/08/22 09/12/22 History ropinirole 0.5 mg tablet 0.5 mg PO HS 09/08/22 09/12/22 History acetaminophen 500 mg tablet 1,000 mg PO Q6H PRN Pain 09/12/22 09/12/22 History gabapentin 600 mg tablet 600 mg PO HS 09/12/22 09/12/22 History Patient History Medical History (Updated 09/12/22 @ 17:59 by Thong Estevez PA-C) Anxiety Bipolar disorder PCP records--pt states she was taken off all her psychiatric meds Depression Glaucoma History of breast cancer 2015 s/p b/l mastectomy Hypertension Hypothyroidism Mood disorder Nausea and vomiting after administration of anesthetic agent Neurogenic claudication due to lumbar spinal stenosis Pancreatitis hx RLS (restless legs syndrome) Schizoaffective disorder PCP records Stroke Amaurosis fugax 02/2021- small old infarct found on brain MRI (02/16/21)- reason for plavix Per [facility] discharge summary, to f/u with neuro and cardio outpatient (follows with Dr. Voss, ? neurology) Surgical History (Updated 09/12/22 @ 17:59 by Thong Estevez PA-C) History of ankle surgery right History of back surgery 2007 and 2011 History of bilateral mastectomy right arm limb restriction History of cholecystectomy History of foot surgery History of rotator cuff surgery X2 History of spinal fusion 10/21/21--spinal fusion T10-L2 Dr. Winston @ [facility] T11-L2 Grade 1 view, [place] 2, ETT 7.5. Family History (Updated 09/04/22 @ 11:25 by Addie Shields RN) Other No family history of adverse response to anesthesia Social History Smoking Status: Never smoker Second Hand Exposure: No; Do You Dip or Chew Tobacco: No; Tobacco Cessation Education Requested by Patient: No Hx Alcohol Use: Yes Alcohol type: wine Hx Substance Use: No Preferred Language: Liberian Communication Ability: Effective Ironmolder Required: No Beliefs That Will Affect Care: None marital status: Current Living Situation: Spouse Other Information That Helps Us Care for You: No Feels Safe at Home: Yes Safety Concerns: Feels Safe At This Time Assistive Devices: Glasses and Walker Physical Exam Physical Exam: Physical Exam: General: In no acute distress, stated age, well-nourished, good hygiene HEENT: Normocephalic, atraumatic, no scleral icterus, pupils around round, symmetrical, and reactive to light, moist mucus membranes, trachea midline, no thyromegaly Chest/Pulm: No respiratory distress, symmetrical chest expansion, clear breath sounds throughout Cardiac: RRR, no murmurs noted Abdomen: Negative for ascites and bruising, normoactive bowel sounds, soft, non-tender to palpation throughout Musculoskeletal: Symmetrical and without signs of acute trauma, upper and lower extremities with full ROM, no atrophy, spasticity, or flaccidity >Thoracic procedure site currently with large bandage in place without signs of saturation, drain is in place and appears to be functioning properly. Patient with two small streaks of blood running down the back from the procedure site Extremities: Radial, dorsalis pedis, and posterior tibial pulses are intact and symmetrical, no edema noted in the BL LE's Skin: Warm, dry, no rashes , lesions, or scars noted Neuro: Alert and oriented to person, place, month, year, and president, no focal defects, CN II-XII tested and intact, intact and symmetrical strength in the BL upper and lower extremities with decreased sensation in the BL LE's which she confirms is her baseline Psych: No acute distress, calm and cooperative during the exam Results & Data Results & Data Vital Signs (Past 12 Hours) Vital Signs Temp Pulse Pulse Pulse Resp BP Pulse Ox 09/12/22 16:19 35.9 C L 82 16 155/80 H 100 09/12/22 15:15 35.8 C L 81 16 158/83 H 98 09/12/22 14:45 36.3 C L 78 16 141/82 H 97 09/12/22 14:15 36.3 C L 76 18 148/80 H 95 09/12/22 13:30 36.5 C 74 14 144/85 H 97 09/12/22 13:20 76 13 149/73 H 98 09/12/22 13:10 73 16 149/77 H 94 09/12/22 13:00 73 14 149/89 H 100 09/12/22 12:47 36.0 C L 71 16 121/75 99 09/12/22 09:00 36.7 C 77 20 129/61 100 O2 Del Method O2 Flow Rate 09/12/22 16:19 Nasal Cannula 2 09/12/22 15:15 Nasal Cannula 3 09/12/22 14:45 Nasal Cannula 3 09/12/22 14:15 Nasal Cannula 3 09/12/22 13:30 Nasal Cannula 3 09/12/22 13:20 Nasal Cannula 3 09/12/22 13:10 Nasal Cannula 3 09/12/22 13:00 Oxymask 5 09/12/22 12:47 Oxymask 8 09/12/22 09:00 Room Air Diagnostic Findings Thoracic Spine X-Ray 09/12/22 10:05 INTRAOPERATIVE RADIOGRAPHS CLINICAL HISTORY: Thoracic spinal fusion surgery. Fluoro time: 41 seconds. Ka,r: 12.90 mGy FINDINGS: 2 spot fluoroscopic views of the lower thoracic spine are presented. There is evidence of multilevel laminectomy and posterior fusion throughout the imaged thoracic spine. The levels cannot be delineated on the provided images. The orthopedic hardware appears intact. IMPRESSION: Intraoperative images from thoracic spinal fusion surgery as above. See operative report for detailed findings. Electronically signed by: Asa Rangel M.D. 09/12/2022 12:45 PM PG Care Time/CCT Total # of Minutes Spent Total Time Spent with Patient: Total time spent is greater than 50% in coordination of care (as documented) at patient's floor/unit and/or counseling patient: C[place] [address] IN/OBS CONSULT LVL 5,80M Patient Type Established Medical Decision Making Moderate Complexity Diagnoses S/P fusion of thoracic spine Z98.1 Amaurosis fugax of right eye G45.3 Hypertension I10 RLS (restless legs syndrome) G25.81 Bipolar disorder F31.9 Hypothyroidism E03.9
[2022-09-12] MEDS: oxyCODONE HCL IR 5 MG TAB (IMMEDIATE RELEASE) PO PRN (19:43)
[2022-09-12] MEDS: ATORVASTATIN 10 MG TAB PO SCH (20:27)
[2022-09-12] MEDS: rOPINIRole HCL 0.25 MG TABLET PO SCH (20:28)
[2022-09-12] MEDS: GABAPENTIN 600 MG TAB PO SCH (20:28)
[2022-09-12] MEDS: risperiDONE 0.5 MG TABLET PO SCH (20:28)
[2022-09-12] MEDS: DOCUSATE SODIUM/SENNA 50/8.6MG TAB PO SCH (20:29)
[2022-09-12] MEDS: METOPROLOL SUCC 25MG EXT REL TAB PO SCH (20:30)
[2022-09-12] MEDS ORDERED: amLODIPine BESYLATE 5 MG TAB PO SCH (21:00)
[2022-09-12] MEDS ORDERED: VANCOMYCIN HCL 1,250 MG in SODIUM CHLORIDE 0.9% 500 ML IV SCH (22:45)
[2022-09-13] MEDS: POLYETHYLENE (MIRALAX) 17 GM PACK PO SCH ×4 (06:21→23:03)
[2022-09-13] MEDS: dexAMETHasone 6 MG in SYRINGE 0 ML IV SCH (06:21)
[2022-09-13 06:53] LABS: Hematocrit (blood only) 30.8 % (37.0-47.0); Mean Corpuscular Hemoglobin 26.7 pg (25.0-34.0); Mean Corpuscular Hgb Conc 32.5 g/dL (32.0-36.0); Mean Corpuscular Volume 82.4 fL (80.0-100.0); Mean Platelet Volume 9.8 fL (9.4-12.4); Platelet Count 295 K/uL (130-400); RDW Coefficient of Variation 16.3 % (11.5-14.5); RDW Standard Deviation 49.2 fL (36.4-46.3); Red Blood Count 3.74 M/uL (4.20-5.40); White Blood Count 13.14 K/ul (4.8-10.8)
[2022-09-13 07:10] LABS: BUN Creatinine Ratio 28.1 (10-20); Calcium 9.3 mg/dl (8.6-10.3); Creatinine Clr Calc Pharmacy 85.8 ml/min; Est GFR (African American) 105.8 ml/min; Est GFR (Non-African American) 91.3 ml/min; Potassium 4.5 mmol/L (3.5-5.1)
[2022-09-13 07:28] LABS: Basophils # (auto) 0.01 K/uL (0-0.2); Basophils % (auto) 0.1 %; Immature Granulocytes # (auto) 0.06 K/uL (0.01-0.20); Immature Granulocytes % (auto) 0.5 %; Lymphocytes # (auto) 0.62 K/uL (1.2-3.4); Lymphocytes % (auto) 4.7 %; Monocytes # (auto) 0.37 K/uL (0.11-0.59); Monocytes % (auto) 2.8 %; Neutrophils # (auto) 12.08 K/uL (1.40-6.50); Neutrophils % (auto) 91.9 %
[2022-09-13] MEDS: oxyCODONE HCL IR 5 MG TAB (IMMEDIATE RELEASE) PO PRN ×3 (08:33→20:03)
[2022-09-13] MEDS: LEVOTHYROXINE SODIUM 100 MCG TABLET PO SCH (08:34)
[2022-09-13] MEDS: risperiDONE 0.5 MG TABLET PO SCH ×2 (08:34→20:14)
--- NOTE | 2022-09-13 10:49 | Orthopedic Progress Note ---
Date of Service September 13, 2022 Assessment & Plan (1) Myelopathy concurrent with and due to spinal stenosis of thoracic region: Plan: At this time we are working with therapy. We will hope to have her transferred to rehab in the next few days. Admission and Anticipated Discharge Date Admission Date: September 12, 2022 Subjective Back pain controlled leg symptoms stable Physical Exam Physical Exam: Patient is up and ambulating halls with a walker. She is comfortable. Results & Data Vital Signs (Past 12 Hours) Vital Signs Temp Pulse Resp BP Pulse Ox O2 Del Method 09/13/22 07:22 36.8 C 95 H 17 129/79 96 Room Air 09/13/22 03:35 36.4 C L 96 H 154/80 H 94 Room Air 09/12/22 22:57 36.4 C L 94 H 18 158/88 H 95 Room Air
--- NOTE | 2022-09-13 11:34 | Hospitalist Progress Note ---
Date of Service September 13, 2022 Assessment & Plan (1) S/P fusion of thoracic spine: Plan: Stable - Perioperative abx, IV fluids, analgesia, and DVT PPX per the primary team - Hold plavix for now but with her previous hx of stroke in 2020 would ideally resume 48 hrs post op, will d/w Dr. Winston prior to ordering - PT/OT eval - Encourage incentive spirometer use q1h wa for atelectasis/pna prevention - CBC reviewed today, mild leukocytosis likely leukemoid reaction post surgery - Remove sullivan (2) Amaurosis fugax of right eye: Plan: Chronic/stable - Takes Plavix which is on hold for surgery, ideally resume 5/4 (3) Hypertension: Plan: Chronic/stable - Well controlled on Amlodipine and Metoprolol - Metoprolol resumed but Amlodipine held - will resume Amlodipine also as BP will tolerate (4) RLS (restless legs syndrome): Plan: Chronic/stable - Continue requip (5) Bipolar disorder: Plan: Chronic/stable - Continue BID Risperdal (6) Hypothyroidism: Plan: Chronic/stable - Continue levothyroxine Plan No further recommendations at this time. I have reached out to Dr. Winston regarding resumption of Plavix. Otherwise, patient is medically stable for dc once cleared by orthopedic surgery. Will sign off, please reach out should any acute needs arise while patient remains in house. Plan d/w Dr. Orantes. Admission and Anticipated Discharge Date Admission Date: September 12, 2022 Supervising Physician Co-Signing Physician Notes PA Supervision Note: I did not personally see or examine the patient today, but I verified all means points of TICO Che's assessment and plan with the following exceptions/additions: None Subjective Patient seen on daily rounds. Reports that her back pain is well controlled, no cp or dyspnea. Leg weakness has improved. No BM since surgery but passing flatus. Physical Exam Physical Exam: GENERAL: 72 yo well-developed, well-nourished F. AAOx4. NAD. LUNGS: Clear to auscultation bilaterally. No W/R/R. CARDIOVASCULAR: Regular rate and rhythm. EXTREMITIES: No edema. Non-tender. Peripheral pulses +2/4. Strength 5/5 NEUROLOGIC: No focal neurological deficits. MARQUITA drain extending from back incision. Results & Data Results & Data Vital Signs (Past 12 Hours) Vital Signs Temp Pulse Resp BP Pulse Ox O2 Del Method 09/13/22 10:52 36.8 C 89 17 149/77 H 96 Room Air 09/13/22 07:22 36.8 C 95 H 17 129/79 96 Room Air 09/13/22 03:35 36.4 C L 96 H 154/80 H 94 Room Air Laboratory Results 09/13/22 06:22 09/13/22 06:22 PG Care Time/CCT Total # of Minutes Spent Total Time Spent with Patient: Total time spent is greater than 50% in coordination of care (as documented) at patient's floor/unit and/or counseling patient: Coding Level of Care Code 86514 SUB INP/OBS CARE 2/35MIN Diagnoses S/P fusion of thoracic spine Z98.1 Amaurosis fugax of right eye G45.3 Hypertension I10 RLS (restless legs syndrome) G25.81 Bipolar disorder F31.9 Hypothyroidism E03.9
[2022-09-13] MEDS: METOPROLOL SUCC 25MG EXT REL TAB PO SCH (20:11)
[2022-09-13] MEDS: ATORVASTATIN 10 MG TAB PO SCH (20:11)
[2022-09-13] MEDS: amLODIPine BESYLATE 5 MG TAB PO SCH (20:12)
[2022-09-13] MEDS: GABAPENTIN 600 MG TAB PO SCH (20:12)
[2022-09-13] MEDS: rOPINIRole HCL 0.25 MG TABLET PO SCH (20:12)
[2022-09-13] MEDS: DOCUSATE SODIUM/SENNA 50/8.6MG TAB PO SCH (20:13)
[2022-09-14] MEDS: POLYETHYLENE (MIRALAX) 17 GM PACK PO SCH ×4 (05:03→22:54)
[2022-09-14] MEDS: oxyCODONE HCL IR 5 MG TAB (IMMEDIATE RELEASE) PO PRN ×4 (06:41→19:58)
[2022-09-14] MEDS: risperiDONE 0.5 MG TABLET PO SCH ×2 (07:46→20:35)
[2022-09-14] MEDS: LEVOTHYROXINE SODIUM 100 MCG TABLET PO SCH (07:46)
--- NOTE | 2022-09-14 12:22 | Orthopedic Progress Note ---
Date of Service September 14, 2022 Assessment & Plan (1) Myelopathy concurrent with and due to spinal stenosis of thoracic region: Plan: At this time continue physical therapy consider possible discharge Sunday or Sunday. Admission and Anticipated Discharge Date Admission Date: September 12, 2022 Subjective Back pain controlled leg pain improving Physical Exam Physical Exam: Patient is in bed at this time. She is good strength testing. Results & Data Vital Signs (Past 12 Hours) Vital Signs Temp Pulse Resp BP Pulse Ox O2 Del Method 09/14/22 07:45 Room Air 09/14/22 07:14 36.7 C 92 H 17 135/78 97 Room Air
[2022-09-14] MEDS: ACETAMINOPHEN 500 MG TAB PO PRN (16:41)
[2022-09-14] MEDS: ATORVASTATIN 10 MG TAB PO SCH (20:34)
[2022-09-14] MEDS: amLODIPine BESYLATE 5 MG TAB PO SCH (20:34)
[2022-09-14] MEDS: DOCUSATE SODIUM/SENNA 50/8.6MG TAB PO SCH (20:34)
[2022-09-14] MEDS: METOPROLOL SUCC 25MG EXT REL TAB PO SCH (20:35)
[2022-09-14] MEDS: rOPINIRole HCL 0.25 MG TABLET PO SCH (20:35)
[2022-09-14] MEDS: GABAPENTIN 600 MG TAB PO SCH (20:35)
[2022-09-15] MEDS: oxyCODONE HCL IR 5 MG TAB (IMMEDIATE RELEASE) PO PRN ×4 (00:04→16:31)
[2022-09-15] MEDS: ACETAMINOPHEN 500 MG TAB PO PRN ×2 (00:47→13:17)
[2022-09-15] MEDS: POLYETHYLENE (MIRALAX) 17 GM PACK PO SCH ×3 (05:49→17:32)
[2022-09-15] MEDS: risperiDONE 0.5 MG TABLET PO SCH ×2 (07:54→20:28)
[2022-09-15] MEDS: LEVOTHYROXINE SODIUM 100 MCG TABLET PO SCH (07:54)
[2022-09-15] MEDS: CLOPIDOGREL BISULFATE 75 MG TAB PO SCH (07:54)
--- NOTE | 2022-09-15 14:10 | Orthopedic Progress Note ---
Date of Service September 15, 2022 Assessment & Plan (1) Myelopathy concurrent with and due to spinal stenosis of thoracic region: Plan: This time we will continue physical therapy monitor MARQUITA output anticipate discharge home tomorrow. Admission and Anticipated Discharge Date Admission Date: September 12, 2022 Subjective Back pain controlled leg symptoms improving Physical Exam Physical Exam: Patient is in the chair at the bedside. She has good strength testing. Results & Data Vital Signs (Past 12 Hours) Vital Signs Temp Pulse Resp BP Pulse Ox O2 Del Method 09/15/22 07:20 Room Air 09/15/22 07:25 36.3 C L 83 16 124/72 96 Room Air
[2022-09-15] MEDS: HYDROmorphone INJ 1 MG/ML SYRINGE IV PRN (20:19)
[2022-09-15] MEDS: rOPINIRole HCL 0.25 MG TABLET PO SCH (20:26)
[2022-09-15] MEDS: ATORVASTATIN 10 MG TAB PO SCH (20:27)
[2022-09-15] MEDS: GABAPENTIN 600 MG TAB PO SCH (20:27)
[2022-09-15] MEDS: METOPROLOL SUCC 25MG EXT REL TAB PO SCH (20:27)
[2022-09-15] MEDS: DOCUSATE SODIUM/SENNA 50/8.6MG TAB PO SCH (20:27)
[2022-09-15] MEDS: amLODIPine BESYLATE 5 MG TAB PO SCH (20:27)
[2022-09-16] MEDS: POLYETHYLENE (MIRALAX) 17 GM PACK PO SCH ×2 (01:27→05:15)
[2022-09-16] MEDS: oxyCODONE HCL IR 5 MG TAB (IMMEDIATE RELEASE) PO PRN ×2 (01:59→09:59)
[2022-09-16] MEDS: CLOPIDOGREL BISULFATE 75 MG TAB PO SCH (08:25)
[2022-09-16] MEDS: risperiDONE 0.5 MG TABLET PO SCH (08:25)
[2022-09-16] MEDS: LEVOTHYROXINE SODIUM 100 MCG TABLET PO SCH (08:25)
--- NOTE | 2022-09-16 08:51 | Discharge Summary ---
Date of Service September 16, 2022 Admission HPI Per Admitting Provider This is a 72-year-old female well-known to me presents with marked decline in neurologic status. She has evidence of a severe thoracic stenosis with neuro decline. Is here for surgical intervention. Principal Diagnosis Thoracic spinal stenosis with myelopathy Discharge Data Allergies Allergy/AdvReac Type Severity Reaction Status Date / Time clindamycin Allergy Severe Rash Verified 09/12/22 08:57 Cephalosporins Allergy Intermediate Swelling Verified 09/12/22 08:57 Penicillins Allergy Intermediate Swelling Verified 09/12/22 08:57 Consultations 09/12/22 14:18 Consult Hospitalist Routine Procedures Performed Operation Date: 09/12/22 10:05 Actual Procedures p T9-T10 Decompression and Fusion, Spinal Cord Monitoring(Not Applicable) - Anup Winston DO s T10-12 Hardware Removal, (Not Applicable) - Anup Winston DO Ordered Studies 09/12/22 10:05 FL thoracic spine 2V Routine Hospital Course (1) Myelopathy concurrent with and due to spinal stenosis of thoracic region: Patient underwent lumbar decompression fusion tolerated well stable orthopedic for postop labor postop day 1 she was up and ambulating progress postop day #2 and 3. MARQUITA drain decreasing probably. Pain well controlled. Leg function improving. Subsequent discharge home with home health. Discharge orders instructions found in chart for further review. Total Time Total Time Spent Total Time Spent (In Minutes): 20 minutes Discharge Plan Discharge Items Patient Disposition: Home - Home Health Services Reason For Visit: Other Spondylosis with Myelopathy, Thoracic Region Discharge Diagnosis: Thoracic spinal stenosis with myelopathy Activity: As commented below Non-emergency contact: Primary Care Provider Call non-emergency contact if: you have any medication questions Follow-up/Referrals: Leonie Dowling MD [Primary Care Provider] - Diet: Regular Addtl Attending Provider Instructions: ACTIVITY RECOMMENDATIONS: SELF CARE INSTRUCTIONS AFTER THORACIC/LUMBAR FUSIONS 1. You may walk to your tolerance. It is good exercise for your legs and back. Expect some back and intermittent leg aches and pains. 2. You may perform "counter-top" level activities (make a sandwich, landy with a project, etc.). 3. No bending or lifting of more than 10 pounds or back twisting of any nature (roll like a log when turning in bed). 4. You may ride in a car for 20-30 minutes at a time. No driving until after your first visit with your doctor. 5. Frequent changes of position and restricting sitting to 30 minutes at a time will help limit the amount of back spasms and stiffness you may experience. 6. You may discontinue the use of ambulatory aids (cane, crutches, etc.) once your strength and confidence allow. 7. You may shipping and receiving supervisor the shower and let water strike your incision when you arrive home at least once daily. Do not take a tub bath, sit in a hot tub or go into a swimming pool until after your first recheck in the office. SPECIAL CARE INSTRUCTIONS: VERY IMPORTANT TO READ AND REVIEW A. Your surgical incision has been closed with a cosmetic suture under the skin that will dissolve in about 6 weeks. In 14 days, you can use a pair of clean scissors and cut the suture that is left outside of the skin at the ends of your incision. 1. The small skin tapes can be removed 7 days after surgery if they have not fallen off by that point. 2. You may keep the wound open to air as much as possible to promote healing after post-op day number 5 unless told otherwise by your doctor. 3. If you think the wound looks like it is becoming infected (redness or worsening drainage) and/or you are experiencing fever, chill or worsening back pain and muscle spasms, contact the office so that we may evaluate you as soon as possible. B. Complications are uncommon, but please contact us if you have any signs or symptoms of: 1. wound infection (fever higher than 102.5 degrees F, redness, separation of wound, drainage, or increasing pain from the incision) 2. blood clots in legs (pain, swelling, redness and warmth in legs) 3. urinary tract infection (fever higher than 102.5 degrees F, burning upon urination or increased frequency of urination) 4. nerve problems (inability to walk on your toes or heels, numbness, loss of bowel or bladder control) 5. any other symptoms that concern you C. Please call the office at if you have any concerns or questions about your operation or recovery. D. No smoking! Smoking drastically decreases the chance of a solid fusion. E. Do not take any anti-inflammatory medications (Indocin, Advil, Motrin, Aspirin, Naprosyn, etc.) as these may inhibit the chance of a solid fusion. Tylenol is okay to take for pain. MANAGING PAIN AFTER SPINAL SURGERY 1. Narcotic medication is intended for short-term use and will be provided for surgical pain. Surgical pain usually lasts for a period of 4-6 weeks. Narcotic medication includes Percocet, Vicodin, Darvocet, Tylenol #3 or Lortab. 2. Longer-term pain is more appropriately treated with non-narcotic medication such as Tylenol ES. 3. Muscle spasm is not appropriately treated with narcotics. Muscle relaxers such as Soma, Flexeril or Skelaxin can be used along with Tylenol ES. 4. Remember that we all live with some "aches and pains". This is not unusual or uncommon after an injury or as we get older. a. Back pain is expected and may include muscle spasms for 4 to 6 weeks after surgery. The pain should gradually improve. If the pain worsens for no apparent reason, please contact the office. b. Intermittent leg pain may also be experienced and should not be concerned about unless it worsens for no apparent reason. If so, please contact the office. 5. We will provide appropriate medication within the normal guidelines of their prescribed use. We will also be very cautious and aware of potential abuse and extended duration of patients' medication needs. a. Pain medications are for your comfort and to assist with sleep and rest so that the tissue can heal. They are not provided in order to return to normal activity and should not be used through the day. To do so or worsening pain at night can result from ongoing tissue damage and development of tolerance to the prescribed medicine. 6. Please allow 2-3 days to process refills. Prescriptions will not be mailed but must be picked up at the office. FOLLOW UP VISIT: Keep your scheduled follow-up appointment. Any questions, please call the office at . Pending Studies at Discharge: No Stand-Alone Forms: My makr, Smoking Cessation Medications and [place] Order Prescriptions: New tramadol 50 mg tablet 50 mg PO Q6H PRN (Reason: pain, moderate) Qty: 30 0RF oxycodone 5 mg tablet 5 mg PO DAILY PRN (Reason: pain) Qty: 30 0RF Continued clopidogrel [Plavix] 75 mg Tablet 75 mg PO QAM atorvastatin 10 mg Tablet 10 mg PO HS metoprolol succinate [Toprol XL] 25 mg Tablet Extended Release 24 Hr 25 mg PO HS levothyroxine 100 mcg tablet 100 mcg PO QAM amlodipine 2.5 mg tablet 2.5 mg PO HS ropinirole 0.5 mg Tablet 0.5 mg PO HS Rx Instructions: administer 1-3 hours before bedtime risperidone 0.5 mg Tablet 0.5 mg PO BID acetaminophen 500 mg Tablet 1,000 mg PO Q6H PRN (Reason: Pain) gabapentin 600 mg Tablet 600 mg PO HS Discharge Orders: Discharge Order (Routine); Ordered 09/16/22 Ordered By: Anup Winston Admission Data Admit Date/Time: 09/12/22 12:35 Attending Provider: Anup Winston Admit Provider: Anup Winston Primary Care Provider: Leonie Dowling Other Providers: Paul Thayer ; Maryanne Cifuentes ; Vitaly Coon ; Zac Gomes ; Michelet Solis ; Aubrey Clark ; Asa Gordon ; Yamel Orantes ; Asya Powell ; Miguel Waggoner ; Alfred Urban ; Ling Clemons ; Tony Rivera ; Rebecca Almaguer ; Erica Mcrae ; Thong Estevez ; Alberto Howard ; Chelsi Wolfe ; Maryanne Morales ; Brigette Puentes ; Lisa Holley ; Agustin Michelle ; Vitaly Sky ; Veronica Argueta ; Jr Agudelo ; Enrique Giles ; Diana Che ; Nam Baker ; Mateo Vazquez ; Li Butts ; Chapo Macdonald ; Ned Lewis ; Virginia Day ; Frankie Martinez ; Mikki Rodriguez ; Landon Ibarra ; Zac Youssef ; [facility]
== END 2022-09-16 12:17 | disposition home health service (06) | DRG 460 ==
LOC: ASU 08:30 → 3E 12:35

== ENCOUNTER 2023-06-25 17:34 | Observation (INO) ==
--- NOTE | 2023-06-25 17:45 | ED Triage Note ---
Date of Service June 25, 2023 Provider in Triage Author: Madeline Cherry History of Present Illness This patient was briefly evaluated while in triage. An abbreviated physical exam was performed. This patient is a 73-year-old Female who presents to the ED for evaluation of TIA symptoms. Having pain and weakness in both of her legs. Mild weakness in her upper extremities. She also feels like she's slurring her speech sometimes. Symptoms have been gradual over the past 3-4 months, worse over the past week and this morning she was having trouble walking from the symptoms. She saw orthopedics last week, but can't have her MRI's of the upper and lower back until July 29 b/c of her recent iron infusions and colonoscopy. Physical Exam GENERAL: Non-toxic and in no acute distress. HEENT: Pupils equal. No obvious scleral icterus. HEART: Regular rate and rhythm. LUNGS: Clear to auscultation. No accessory muscle use. ABDOMEN: Soft, nontender to palpation. NEURO: Alert and oriented. Normal speech in triage. No facial droop. Tongue does not deviate. No obvious neurological deficits on quick neuro exam. MUSCULOSKELETAL: The patient's cervical, thoracic, and lumbar spine are diffusely tender to palpation. The patient is having some weakness in her bilateral upper and lower extremities which she has been experiencing for a while per patient. Initial orders for labs and / or imaging were placed and patient was placed in the waiting area until a bed is available. Please see further documentation for the full ED course. MDM / Impression Impression Impression: Slurred speech, Arm paresthesia, left
--- NOTE | 2023-06-25 19:21 | XRay Report ---
SINGLE VIEW CHEST CLINICAL HISTORY: Atypical chest pain. FINDINGS: An AP, portable, upright chest radiograph is compared to study dated 08/17/2022. Surgical cli ps are seen in the chest wall bilaterally. The cardiomediastinal silhouette is top normal for project ion. The lungs and pleural spaces are clear. No pneumothorax is seen. The skeletal structures are ost eopenic. The bony thorax is grossly intact. Thoracolumbar spinal rods are in place. Fusion hardware i s seen in the lower cervical spine. 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 Superior sub luxation of the humeral heads suggest chronic bilateral rotator cuff injuries. IMPRESSION: No active disease in the chest. ACT 112: Negative or not required by law. Electronically signed by: Asa Rangel M.D. 06/25/2023 7:20 PM
[2023-06-25] MEDS: SODIUM CHLORIDE 0.9% 500 ML IV STA (20:02)
[2023-06-25 20:18] LABS: Basophils # (auto) 0.03 K/uL (0.00-0.20); Basophils % (auto) 0.5 %; Eosinophils # (auto) 0.01 K/uL (0.00-0.50); Eosinophils % (auto) 0.2 %; Hematocrit (blood only) 46.4 % (37.0-47.0); Hemoglobin 14.9 g/dl (12.0-16.0); Immature Granulocytes # (auto) 0.01 K/uL (0.01-0.20); Immature Granulocytes % (auto) 0.2 %; Lymphocytes # (auto) 2.11 K/uL (1.20-3.40); Lymphocytes % (auto) 34.7 %; Mean Corpuscular Hemoglobin 28.4 pg (25.0-34.0); Mean Corpuscular Hgb Conc 32.1 g/dL (32.0-36.0); Mean Corpuscular Volume 88.4 fL (80.0-100.0); Mean Platelet Volume 9.7 fL (9.4-12.4); Monocytes # (auto) 0.85 K/uL (0.11-0.59); Neutrophils # (auto) 3.07 K/uL (1.40-6.50); Neutrophils % (auto) 50.4 %; Platelet Count 201 K/uL (130-400); RDW Coefficient of Variation 15.2 % (11.5-14.5); RDW Standard Deviation 49.1 fL (36.4-46.3); Red Blood Count 5.25 M/uL (4.20-5.40); White Blood Count 6.08 K/ul (4.8-10.8)
[2023-06-25 20:36] LABS: Alanine Aminotransferase 37 U/L (7-52); Albumin Globulin Ratio 1.6 (0.9-2); Albumin Level 4.1 gm/dl (3.4-5.0); Alkaline Phosphatase 138 U/L (34-104); Anion Gap 4 (3-11); Aspartate Aminotransferase 20 U/L (13-39); BUN Creatinine Ratio 27.9 (10-20); Bilirubin,Total 0.4 mg/dl (0.2-1.0); Blood Urea Nitrogen 19 mg/dl (6-23); Calcium 10.2 mg/dl (8.6-10.3); Carbon Dioxide 32 mmol/L (21-32); Chloride 104 mmol/L (98-107); Est GFR (African American) 99.2 ml/min; Est GFR (Non-African American) 85.6 ml/min; Globulin 2.6 gm/dl (2.5-4.0); Glucose 72 mg/dl (70-99(Fasting)); Lipase 13 U/L (11-82); Potassium 3.9 mmol/L (3.5-5.1); Sodium 140 mmol/L (136-145); Total Protein 6.7 gm/dl (6.0-8.3)
[2023-06-25 20:42] LABS: Troponin I High Sensitivity 3.3 pg/ml (0-14)
[2023-06-25 20:46] LABS: INR 0.9 (0.9-1.1); Partial Thromboplastin Time 28 Seconds (21-31)
[2023-06-25] MEDS: OPTIRAY 320 125ml IV ONE (21:41)
--- NOTE | 2023-06-25 22:02 | Emergency Department Note ---
Impression & Plan Slurred speech, Arm paresthesia, left ED Provider Note NAME: BRAYAN DUNAWAY AGE: 73 SEX: F : 1950 ARRIVES VIA: Walk-In INFORMANT: Patient ED PROVIDER(S): Aubrey Pfeiffer DO CHIEF COMPLAINT: Slurred speech and left arm numbness HPI: Patient is a 73-year-old female with a past medical history myelopathy, restless leg syndrome, transient visual loss, bipolar disorder, depression, anxiety and pancreatitis who presents to the ER for slurred speech as well as left-sided arm tingling which occurs intermittently but is not present now and some weakness in her left arm which she believes is new. She believes the weakness and the slurred speech started after she went to bed around 2:30 PM today. She woke up around 4 and noticed that it was there. She denies any chest pain or shortness of breath. No focal weakness in the legs but she notes she feels weak all over and that her legs as well as her arms. She is able to urinate move her bowels without difficulty. When she changes position she will sometimes urinate a small amount and this has been occurring over the past month. ADDITIONAL HISTORY OBTAINED: Per HPI Chronic Medical/Social Conditions Affecting Care: Per HPI PAST MEDICAL HISTORY:See Below PAST SURGICAL HISTORY:See Below FAMILY HISTORY:See Below SOCIAL HISTORY:See Below HOME MEDICATIONS:See Below ALLERGIES:See Below VITALS:See Below PHYSICAL EXAMINATION: GENERAL: Sitting up in bed, alert, well appearing, well nourished, no distress, non-toxic EYE EXAM: normal conjunctiva. PERRL and EOM's grossly intact. OROPHARYNX: no exudate, no erythema, lips, buccal mucosa, and tongue normal and mucous membranes are moist NECK: supple, no nuchal rigidity, no adenopathy, non-tender LUNGS: Clear to auscultation. Normal chest wall mechanics HEART: no murmurs, S1 normal and S2 normal ABDOMEN: abdomen soft, non-tender, normo-active bowel sounds, no masses, no rebound or guarding. BACK: Back is symmetrical on inspection and there is no deformity, no midline tenderness, no CVA tenderness. SKIN: no rashes and no bruising UPPER EXTREMITIES: upper extremities are grossly normal. LOWER EXTREMITIES: No pitting edema. NEURO EXAM: Normal sensorium, cranial nerves II-XII intact, slurred speech, left upper extremity slightly weaker than right with grasp as well as flexion extension of the elbow 4 out of 5. 5 out of 5 on the right. No weakness of the right upper extremity, no weakness of legs. No drift. Finger to nose intact. Gross sensation intact. Able to stand and take several steps without difficulty. MEDICAL DECISION MAKING: Patient is a 73-year-old female who presents ER for above-stated complaint. IV was established blood work was obtained. Labs show no significant leukocytosis or anemia. INR unremarkable. BMP along with LFTs bilirubin and troponin was negative. Lipase was normal. CT angios of the head and neck were negative. Patient is not a TNK candidate as she is out of the window. Patient does have left arm numbness and slight weakness in combination with slurred speech. There is no large vessel occlusion. Stroke alert was not initially called as there was a protracted wait and she was triaged in the waiting room and CTs were obtained and done/performed prior to me evaluating the patient signing up with patient. Patient was updated bedside and discussed case with the hospitalist for further evaluation management treatment. No signs of cauda equina. Consults/Care Managements Discussions: Per [facility] Triage Nursing notes reviewed. Limited review of prior medical records performed Vital Signs: reviewed and remarkable for no significant abnormalities Differential diagnosis: Differential Diagnosis includes but is not limited to ischemic Stroke, hemorrhagic stroke, bells palsy, mass, neoplasm, migraine headache, seizure, subarachnoid hemorrhage, TIA, and transient global amnesia. ER treatment provided: See below Diagnostics interpreted by me include EKG and cardiac monitoring as listed below: -Cardiac Monitoring: An order was placed for continuous cardiac monitoring. The monitor shows a rate of 80 with sinus rhythm. -ECG: Sinus rhythm rate 68 Normal axis No PVCs QTc 484 -Laboratory studies:Interpreted by me as stated above in MDM and shown below. Imaging studies: Xrays: As interpreted by me: Portable AP over 1 view of the chest shows no focal infiltrate CTs show: CT angios of the head and neck were negative as well as CT of cervical spine and lumbar spine were unremarkable Procedures:none Critical Care: None Past Med/Surg History Medical History (Updated 06/26/23 @ 00:08 by Aubrey Pfeiffer DO) Anemia 2 iron infusions 04/2023 RLS (restless legs syndrome) Nausea and vomiting after administration of anesthetic agent Neurogenic claudication due to lumbar spinal stenosis History of breast cancer 2016 s/p b/l mastectomy Schizoaffective disorder PCP records Glaucoma Depression Bipolar disorder PCP records--pt states she was taken off all her psychiatric meds Anxiety Stroke Amaurosis fugax 02/2021- small old infarct found on brain MRI (02/16/21)- reason for plavix Per [facility] discharge summary, to f/u with neuro and cardio outpatient (follows with Dr. Voss, ? neurology) Hypertension Mood disorder Hypothyroidism Pancreatitis hx Surgical History History of spinal fusion 10/21/21--spinal fusion T10-L2 Dr. Winston @ [facility] T11-L2 Grade 1 view, [place] 2, ETT 7.5. History of bilateral mastectomy right arm limb restriction History of ankle surgery right History of foot surgery History of rotator cuff surgery X2 History of cholecystectomy History of back surgery 2007 and 2011 Family History Other No family history of adverse response to anesthesia Social History Smoking Status: Never smoker Second Hand Exposure: No; Do You Dip or Chew Tobacco: No; Hx Alcohol Use: Yes Alcohol type: wine Hx Substance Use: No Preferred Language: Japanese Communication Ability: Effective Cloth Covered Helmet Puller Required: No Beliefs That Will Affect Care: None marital status: Current Living Situation: Spouse Feels Safe at Home: Yes Assistive Devices: Cane and Glasses Allergies Allergies Allergy/AdvReac Type Severity Reaction Status Date / Time clindamycin Allergy Severe Rash Verified 06/25/23 22:00 Cephalosporins Allergy Intermediate Swelling Verified 06/25/23 22:00 Penicillins Allergy Intermediate Swelling Verified 06/25/23 22:00 Home Meds Home Medications Medication Instructions Recorded Confirmed amlodipine 2.5 mg tablet 2.5 mg PO HS 02/16/21 06/25/23 levothyroxine 100 mcg tablet See Rx Instructions .Route .COMPLEX 02/16/21 06/25/23 atorvastatin 10 mg tablet 5 mg PO HS 10/05/21 06/25/23 clopidogrel 75 mg tablet (Plavix) 75 mg PO QAM 10/05/21 06/25/23 metoprolol succinate 25 mg 25 mg PO HS 10/19/21 06/25/23 tablet,extended release 24 hr (Toprol XL) mecobalamin (vitamin B12) 1,000 1,000 mcg PO DAILY 06/14/23 06/25/23 mcg chewable tablet risperidone 1 mg tablet 1 mg PO TID 06/25/23 06/25/23 Previous Rx's Medication Instructions Recorded pantoprazole 40 mg tablet,delayed 40 mg PO DAILY #30 tabs 06/11/23 release (Protonix) pregabalin 150 mg capsule 150 mg PO BID #60 caps 06/14/23 Results & Data (ED) Vital Signs Vital Signs - 24 hr 06/25/23 17:40 06/25/23 21:45 06/25/23 21:45 Temperature 36.6 C Temperature Source Temporal Artery Scan Pulse Rate 78 73 73 Pulse Rate from SpO2 Sensor Respiratory Rate 20 17 Respiratory Effort / Characteristics Non-Labored Respiratory Depth Normal Blood Pressure 109/73 153/75 H Blood Pressure [Right Arm] Blood Pressure Mean 85 101 Blood Pressure Mean [Right Arm] Blood Pressure Position [Right Arm] Pulse Oximetry 100 100 Oxygen Delivery Method Room Air Sepsis Recent Fever Within 48 Hours No Sepsis New/Unexplained Change in Mental Status No Sepsis Action Taken by Nursing No Action Required 06/25/23 22:00 06/25/23 22:10 06/25/23 22:31 Temperature Temperature Source Pulse Rate 75 74 Pulse Rate from SpO2 Sensor Respiratory Rate 16 11 L Respiratory Effort / Characteristics Respiratory Depth Blood Pressure 146/74 H Blood Pressure [Right Arm] Blood Pressure Mean 98 Blood Pressure Mean [Right Arm] Blood Pressure Position [Right Arm] Pulse Oximetry 100 100 100 Oxygen Delivery Method Room Air Room Air Sepsis Recent Fever Within 48 Hours Sepsis New/Unexplained Change in Mental Status Sepsis Action Taken by Nursing 06/25/23 22:50 06/25/23 23:00 06/25/23 23:04 Temperature Temperature Source Pulse Rate 75 76 Pulse Rate from SpO2 Sensor 75 76 Respiratory Rate 11 L 15 Respiratory Effort / Characteristics Respiratory Depth Blood Pressure Blood Pressure [Right Arm] 153/82 H Blood Pressure Mean Blood Pressure Mean [Right Arm] 105 Blood Pressure Position [Right Arm] Lying Pulse Oximetry 99 97 Oxygen Delivery Method Sepsis Recent Fever Within 48 Hours Sepsis New/Unexplained Change in Mental Status Sepsis Action Taken by Nursing Laboratory Data 06/25/23 20:00 06/25/23 20:00 Lab Results 02/12/24 Range/Units 20:00 WBC 6.08 (4.8-10.8) K/ul RBC 5.25 (4.20-5.40) M/uL Hgb 14.9 (12.0-16.0) g/dl Hct 46.4 (37.0-47.0) % MCV 88.4 (80.0-100.0) fL MCH 28.4 (25.0-34.0) pg MCHC 32.1 (32.0-36.0) g/dL RDW Std Deviation 49.1 H (36.4-46.3) fL RDW Coeff of Devyn 15.2 H (11.5-14.5) % Plt Count 201 (130-400) K/uL MPV 9.7 (9.4-12.4) fL Immature Gran % (Auto) 0.2 % Neut % (Auto) 50.4 % Lymph % (Auto) 34.7 % Dewitt % (Auto) 14.0 % Eos % (Auto) 0.2 % Baso % (Auto) 0.5 % Neut # (Auto) 3.07 (1.40-6.50) K/uL Lymph # (Auto) 2.11 (1.20-3.40) K/uL Dewitt # (Auto) 0.85 H (0.11-0.59) K/uL Eos # (Auto) 0.01 (0.00-0.50) K/uL Baso # (Auto) 0.03 (0.00-0.20) K/uL Immature Gran # (Auto) 0.01 (0.01-0.20) K/uL PT 10.0 (9.0-12.0) Seconds INR 0.9 (0.9-1.1) APTT 28 (21-31) Seconds PTT Ratio 1.0 Sodium 140 (136-145) mmol/L Potassium 3.9 (3.5-5.1) mmol/L Chloride 104 (98-107) mmol/L Carbon Dioxide 32 (21-32) mmol/L Anion Gap 4 (3-11) BUN 19 (6-23) mg/dl Creatinine 0.68 (0.6-1.2) mg/dl Est Cr Clr Drug Dosing Not Reportable Est GFR ( Amer) 99.2 ml/min Est GFR (Non-Af Amer) 85.6 ml/min BUN/Creatinine Ratio 27.9 H (10-20) Glucose 72 (70-99(Fasting)) mg/dl Calcium 10.2 (8.6-10.3) mg/dl Total Bilirubin 0.4 (0.2-1.0) mg/dl AST 20 (13-39) U/L ALT 37 (7-52) U/L Alkaline Phosphatase 138 H (34-104) U/L Troponin I High Sens 3.3 (0-14) pg/ml Total Protein 6.7 (6.0-8.3) gm/dl Albumin 4.1 (3.4-5.0) gm/dl Globulin 2.6 (2.5-4.0) gm/dl Albumin/Globulin Ratio 1.6 (0.9-2) Lipase 13 (11-82) U/L Administered Medications Discontinued Medications Sodium Chloride (Nss) 500 mls @ 999 mls/hr IV .Q31M STA Stop: 06/25/23 18:15 Last Infusion: 06/25/23 21:45 Dose: Infused Documented By: Admin: 06/25/23 20:02 Dose: 999 mls/hr Documented By: KML Sodium Chloride (Nss) 500 mls @ 999 mls/hr IV .Q31M ONE Stop: 06/25/23 23:04 Last Infusion: 06/25/23 23:42 Dose: Infused Documented By: Admin: 06/25/23 22:45 Dose: 999 mls/hr Documented By: CPB Ioversol (Optiray 320 125ml) 116 ml IV ONCE ONE Stop: 06/25/23 21:41 Last Admin: 06/25/23 21:41 Dose: 116 ml Documented By: EAB Morphine Sulfate (Morphine Sulfate 4 Mg/Ml 1 Ml Carp\Vial) 4 mg IV NOW STA Stop: 06/25/23 22:03 Last Admin: 06/25/23 22:29 Dose: 2 mg Documented By: CPB Morphine Sulfate (Morphine Sulfate 2 Mg/Ml Carp) 2 mg IV NOW STA Stop: 06/25/23 22:35 Last Admin: 06/25/23 22:38 Dose: Not Given Documented By: CPB Ondansetron HCl (Ondansetron Inj 2 Mg/Ml 2 Ml Vial) 4 mg IV NOW STA Stop: 06/25/23 22:03 Last Admin: 06/25/23 22:28 Dose: 4 mg Documented By: CPB Imaging Data Radiologist's Impression: Cervical Spine CT 06/25/23 17:45 Exam(s): CT C SPINE EXAM: CT Cervical Spine Without Intravenous Contrast CLINICAL HISTORY: Reason for exam: Neck pain, arm weakness. TECHNIQUE: Axial computed tomography images of the cervical spine without intravenous contrast. Automated exposure control was utilized for the study. A dose lowering technique was utilized adhering to the principles of ALARA. COMPARISON: None FINDINGS: Bones: Anterior fusion changes from C4-C7. No acute fracture or bony lesion. Ossifications in the nuchal ligament are likely related to remote trauma. Disc spaces: Degenerative changes of the spine. Mild anterolisthesis of C2 on C3 and C7 on T1. Soft tissues: Normal. Other: Atherosclerotic changes of the vasculature. IMPRESSION: No acute traumatic abnormality. Electronically signed by: Vinayak Jett M.D. 06/25/23 22:03 PM Chest X-Ray 06/25/23 17:45 SINGLE VIEW CHEST CLINICAL HISTORY: Atypical chest pain. FINDINGS: An AP, portable, upright chest radiograph is compared to study dated 08/17/2022. Surgical clips are seen in the chest wall bilaterally. The cardiomediastinal silhouette is top normal for projection. The lungs and pleural spaces are clear. No pneumothorax is seen. The skeletal structures are osteopenic. The bony thorax is grossly intact. Thoracolumbar spinal rods are in place. Fusion hardware is seen in the lower cervical spine. 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 Superior subluxation of the humeral heads suggest chronic bilateral rotator cuff injuries. IMPRESSION: No active disease in the chest. ACT 112: Negative or not required by law. Electronically signed by: Asa Rangel M.D. 06/25/2023 7:[address] 06/25/23 17:45 CR Exam(s): CT HEAD Without Contrast EXAM: CT Head Without Intravenous Contrast CLINICAL HISTORY: Reason for exam: Weakness, slurred speech. TECHNIQUE: Axial computed tomography images of the head/brain without intravenous contrast. Automated exposure control was utilized for the study. A dose lowering technique was utilized adhering to the principles of ALARA. COMPARISON: MRI brain on 02/16/2021. CT head on 02/16/2021. FINDINGS: Brain: No acute infarct or hemorrhage identified. No extra-axial fluid collection. No mass effect or midline shift. Scattered areas of hypoattenuation in the supratentorial white matter likely represent chronic small vessel ischemic changes. Ventricles and sulci: Prominence of the ventricles and sulci is likely secondary to cerebral volume loss. Bones: Normal. No bony lesion or acute fracture. Subcutaneous tissues: Normal. Sinuses: Mild mucosal thickening in the ethmoid air cells. Mastoid air cells: Normal. Orbits: Bilateral lens implants. Other: Atherosclerotic calcifications in the intracranial vasculature. IMPRESSION: 1. No acute intracranial abnormality. 2. Mild chronic small vessel ischemic changes and cerebral volume loss. Communications: Call Doctor Stroke Electronically signed by: Vinayak Jett M.D. 06/25/23 22:01 PM Head CTA 06/25/23 17:45 CR Exam(s): CTA HEAD With Contrast IV Amt: 116ML OPTIRAY 320 EXAM: CT Angiography Head With Intravenous Contrast CLINICAL HISTORY: Reason for exam: Weakness, slurred speech. TECHNIQUE: Axial computed tomographic angiography images of the head with intravenous contrast. Automated exposure control was utilized for the study. A dose lowering technique was utilized adhering to the principles of ALARA. MIP reconstructed images were created and reviewed. CONTRAST: Patient received 116ML OPTIRAY 320 of IV contrast COMPARISON: CTA head on 02/16/2021 FINDINGS: Right internal carotid artery: Mild atherosclerotic calcifications of the distal right ICA. No significant stenosis. No aneurysm. Right anterior cerebral artery: Unremarkable. No occlusion or significant stenosis. No aneurysm. Right middle cerebral artery: Unremarkable. No occlusion or significant stenosis. No aneurysm. Right posterior cerebral artery: Unremarkable. No occlusion or significant stenosis. No aneurysm. Right vertebral artery: Unremarkable as visualized. Left internal carotid artery: No acute findings. Intracranial segment is patent with no significant stenosis. No aneurysm. Left anterior cerebral artery: Unremarkable. No occlusion or significant stenosis. No aneurysm. Left middle cerebral artery: Unremarkable. No occlusion or significant stenosis. No aneurysm. Left posterior cerebral artery: Unremarkable. No occlusion or significant stenosis. No aneurysm. Left vertebral artery: Unremarkable as visualized. Basilar artery: Unremarkable. No occlusion or significant stenosis. No aneurysm. IMPRESSION: No significant stenosis, occlusion, or aneurysm in the central or large intracranial arteries. Communications: Call Doctor Stroke Electronically signed by: Vinayak Jett M.D. 06/25/23 22:[address] 06/25/23 17:45 Exam(s): CT L SPINE EXAM: CT Lumbar Spine Without Intravenous Contrast CLINICAL HISTORY: Reason for exam: Low back pain, leg weakness. TECHNIQUE: Axial computed tomography images of the lumbar spine without intravenous contrast. Automated exposure control was utilized for the study. A dose lowering technique was utilized adhering to the principles of ALARA. COMPARISON: None FINDINGS: Bones: Spinal fusion rods partially visualized. Laminectomies in the lumbar spine. No acute fracture or bony lesion. Disc spaces: Degenerative changes of the spine. Grade 1 anterolisthesis of T12 on L1, L3 on L4, and L4 on L5. Mild retrolisthesis of L1 on L2. Evaluation of the spinal canal is limited by artifact from the spinal rods. No significant spinal canal stenosis at L2-3 and L3-4. Severe neural foraminal stenoses at L5-S1. Severe neural foraminal stenoses at L1-2. Soft tissues: Normal. Other: Atherosclerotic changes of the vasculature. IMPRESSION: 1. No acute traumatic abnormality. 2. Extensive spinal fusion rods partially visualized. Evaluation of the spinal canal is limited by artifact from the spinal rods. No significant spinal canal stenosis at L2-3 and L3-4. Severe neural foraminal stenoses at L5-S1. Severe neural foraminal stenoses at L1-2. Further evaluation could be attempted with MRI if clinically indicated. Electronically signed by: Vinayak Jett M.D. 06/25/23 22:31 PM Neck CTA 06/25/23 17:45 CR Exam(s): CTA NECK With Contrast IV Amt: 116ML OPTIRAY 320 EXAM: CT Angiography Neck With Intravenous Contrast CLINICAL HISTORY: Reason for exam: Weakness, slurred speech. TECHNIQUE: Routine carotid CT angiography protocol was performed with intravenous contrast. NASCET criteria using the distal ICAs for comparison were used for evaluation of stenoses. Automated exposure control was utilized for the study. A dose lowering technique was utilized adhering to the principles of ALARA. MIP reconstructed images were created and reviewed. CONTRAST: Patient received 116ML OPTIRAY 320 of IV contrast COMPARISON: CTA neck on 02/16/2021 FINDINGS: VASCULATURE: Right common carotid artery: Unremarkable. No occlusion or significant stenosis. No dissection. Right internal carotid artery: Atherosclerotic changes in the right carotid bulb and proximal right ICA, causing stable approximately 50% stenosis at the origin of the right ICA. No dissection. Right external carotid artery: Unremarkable. No occlusion. Right vertebral artery: Unremarkable. No occlusion or significant stenosis. No dissection. Left common carotid artery: Unremarkable. No occlusion or significant stenosis. No dissection. Left internal carotid artery: Atherosclerotic changes in the left carotid bulb and proximal left ICA without significant stenosis. No dissection. Left external carotid artery: Unremarkable. No occlusion. Left vertebral artery: Unremarkable. No occlusion or significant stenosis. No dissection. NECK: Bones/joints: Degenerative changes of the spine. Anterior fusion changes from C4-C7. Ossifications in the nuchal ligament are likely related to remote trauma. No acute fracture. Soft tissues: Unremarkable. Lung apices: Clear. CAROTID STENOSIS REFERENCE USING NASCET CRITERIA: % ICA stenosis = (1 - narrowest ICA diameter/diameter of distal cervical ICA) x 100. Mild - <50% stenosis. Moderate - 50-69% stenosis. Severe - 70-94% stenosis. Near occlusion - 95-99% stenosis. Occluded - 100% stenosis. IMPRESSION: Atherosclerotic changes in the right carotid bulb and proximal right ICA, causing stable approximately 50% stenosis at the origin of the right ICA. No other significant stenosis, occlusion, or dissection. Communications: Call Doctor Stroke Electronically signed by: Vinayak Jett M.D. 06/25/23 22:[address] 06/25/23 17:45 Exam(s): CT T SPINE EXAM: CT Thoracic Spine Without Intravenous Contrast CLINICAL HISTORY: Reason for exam: Mid back pain. TECHNIQUE: Axial computed tomography images of the thoracic spine without intravenous contrast. Automated exposure control was utilized for the study. A dose lowering technique was utilized adhering to the principles of ALARA. COMPARISON: Comparison is made to MRI thoracic spine on 03/31/2022 FINDINGS: Bones: Spinal rods seen in the mid and lower thoracic spine and upper lumbar spine. Cervical fusion hardware partially visualized. Chronic appearing compression deformity of T9 and T10. No acute fracture or bony lesion. Disc spaces: Degenerative changes of the spine. Mild anterolisthesis of T3 on T4 and T12 on L1. No significant spinal canal stenosis in the upper and mid thoracic spine. Evaluation of the lower thoracic spinal canal is limited by artifact from the spinal fusion rods. Limited evaluation of the neural foramina, but there appears to be severe neural foraminal stenoses at T1-T2, T2-3, T8-9, T9-10. Soft tissues: Normal. Other: Atherosclerotic changes of the vasculature.. IMPRESSION: 1. No acute traumatic abnormality. 2. No significant spinal canal stenosis in the upper and mid thoracic spine. Evaluation of the lower thoracic spinal canal is limited by artifact from the spinal fusion rods. Limited evaluation of the neural foramina, but there appears to be severe neural foraminal stenoses at T1- T2, T2-3, T8-9, T9-10. Further evaluation could be attempted with MRI if clinically indicated. Electronically signed by: Vinayak Jett M.D. 06/25/23 22:35 PM Discharge Plan Visit Data Chief Complaint: Weakness Stated Complaint: WEAKNESS, SLURRED SPEECH, NUMBNESS RT SIDE ED Provider: Aubrey Pfeiffer Discharge Problem: Slurred speech, Arm paresthesia, left Forms Stand Alone Forms: My [facility] Prescriptions Prescriptions: No Action pregabalin 150 mg capsule 150 mg PO BID Qty: 60 5RF mecobalamin (vitamin B12) 1,000 mcg tablet,chewable 1,000 mcg PO DAILY clopidogrel [Plavix] 75 mg Tablet 75 mg PO QAM atorvastatin 10 mg Tablet 5 mg PO HS metoprolol succinate [Toprol XL] 25 mg Tablet Extended Release 24 Hr 25 mg PO HS levothyroxine 100 mcg tablet See Rx Instructions .ROUTE .COMPLEX Rx Instructions: TAKES 100 MCG SUNDAY THROUGH SUNDAY, THEN 200 MCG ON SUNDAYS ONLY. amlodipine 2.5 mg tablet 2.5 mg PO HS pantoprazole [Protonix] 40 mg tablet,delayed release (DR/EC) 40 mg PO DAILY Qty: 30 5RF risperidone 1 mg tablet 1 mg PO TID Referrals Referrals: Leonie Dowling MD [Primary Care Provider] -
--- NOTE | 2023-06-25 22:18 | CT Scan Report ---
Exam(s): CTA HEAD With Contrast IV Amt: 116ML OPTIRAY 320 EXAM: CT Angiography Head With Intravenous Contrast CLINICAL HISTORY: Reason for exam: Weakness, slurred speech. TECHNIQUE: Axial computed tomographic angiography images of the head with intravenous contrast. Automated exposure control was utilized for the study. A dose lowering technique was utilized adhering to the principles of ALARA. MIP reconstructed images were created and reviewed. CONTRAST: Patient received 116ML OPTIRAY 320 of IV contrast COMPARISON: CTA head on 02/16/2021 FINDINGS: Right internal carotid artery: Mild atherosclerotic calcifications of the distal right ICA. No significant stenosis. No aneurysm. Right anterior cerebral artery: Unremarkable. No occlusion or significant stenosis. No aneurysm. Right middle cerebral artery: Unremarkable. No occlusion or significant stenosis. No aneurysm. Right posterior cerebral artery: Unremarkable. No occlusion or significant stenosis. No aneurysm. Right vertebral artery: Unremarkable as visualized. Left internal carotid artery: No acute findings. Intracranial segment is patent with no significant stenosis. No aneurysm. Left anterior cerebral artery: Unremarkable. No occlusion or significant stenosis. No aneurysm. Left middle cerebral artery: Unremarkable. No occlusion or significant stenosis. No aneurysm. Left posterior cerebral artery: Unremarkable. No occlusion or significant stenosis. No aneurysm. Left vertebral artery: Unremarkable as visualized. Basilar artery: Unremarkable. No occlusion or significant stenosis. No aneurysm. IMPRESSION: No significant stenosis, occlusion, or aneurysm in the central or large intracranial arteries. Communications: Call Doctor Stroke Electronically signed by: Vinayak Jett M.D. 06/25/23 22:17 PM
[2023-06-25] MEDS: ONDANSETRON INJ 2 MG/ML 2 ML VIAL IV STA (22:28)
[2023-06-25] MEDS: MoRPHine SULFATE 4 MG/ML 1 ML CARP\\VIAL IV STA (22:29)
--- NOTE | 2023-06-25 22:32 | CT Scan Report ---
Exam(s): CT L SPINE EXAM: CT Lumbar Spine Without Intravenous Contrast CLINICAL HISTORY: Reason for exam: Low back pain, leg weakness. TECHNIQUE: Axial computed tomography images of the lumbar spine without intravenous contrast. Automated exposure control was utilized for the study. A dose lowering technique was utilized adhering to the principles of ALARA. COMPARISON: None FINDINGS: Bones: Spinal fusion rods partially visualized. Laminectomies in the lumbar spine. No acute fracture or bony lesion. Disc spaces: Degenerative changes of the spine. Grade 1 anterolisthesis of T12 on L1, L3 on L4, and L4 on L5. Mild retrolisthesis of L1 on L2. Evaluation of the spinal canal is limited by artifact from the spinal rods. No significant spinal canal stenosis at L2-3 and L3-4. Severe neural foraminal stenoses at L5-S1. Severe neural foraminal stenoses at L1-2. Soft tissues: Normal. Other: Atherosclerotic changes of the vasculature. IMPRESSION: 1. No acute traumatic abnormality. 2. Extensive spinal fusion rods partially visualized. Evaluation of the spinal canal is limited by artifact from the spinal rods. No significant spinal canal stenosis at L2-3 and L3-4. Severe neural foraminal stenoses at L5-S1. Severe neural foraminal stenoses at L1-2. Further evaluation could be attempted with MRI if clinically indicated. Electronically signed by: Vinayak Jett M.D. 06/25/23 22:31 PM
--- NOTE | 2023-06-25 22:36 | CT Scan Report ---
Exam(s): CT T SPINE EXAM: CT Thoracic Spine Without Intravenous Contrast CLINICAL HISTORY: Reason for exam: Mid back pain. TECHNIQUE: Axial computed tomography images of the thoracic spine without intravenous contrast. Automated exposure control was utilized for the study. A dose lowering technique was utilized adhering to the principles of ALARA. COMPARISON: Comparison is made to MRI thoracic spine on 03/31/2022 FINDINGS: Bones: Spinal rods seen in the mid and lower thoracic spine and upper lumbar spine. Cervical fusion hardware partially visualized. Chronic appearing compression deformity of T9 and T10. No acute fracture or bony lesion. Disc spaces: Degenerative changes of the spine. Mild anterolisthesis of T3 on T4 and T12 on L1. No significant spinal canal stenosis in the upper and mid thoracic spine. Evaluation of the lower thoracic spinal canal is limited by artifact from the spinal fusion rods. Limited evaluation of the neural foramina, but there appears to be severe neural foraminal stenoses at T1-T2, T2-3, T8-9, T9-10. Soft tissues: Normal. Other: Atherosclerotic changes of the vasculature.. IMPRESSION: 1. No acute traumatic abnormality. 2. No significant spinal canal stenosis in the upper and mid thoracic spine. Evaluation of the lower thoracic spinal canal is limited by artifact from the spinal fusion rods. Limited evaluation of the neural foramina, but there appears to be severe neural foraminal stenoses at T1- T2, T2-3, T8-9, T9-10. Further evaluation could be attempted with MRI if clinically indicated. Electronically signed by: Vinayak eJtt M.D. 06/25/23 22:35 PM
[2023-06-25] MEDS: MoRPHine SULFATE 2 MG/ML CARP IV STA (22:38)
--- NOTE | 2023-06-25 22:39 | CT Scan Report ---
Exam(s): CTA NECK With Contrast IV Amt: 116ML OPTIRAY 320 EXAM: CT Angiography Neck With Intravenous Contrast CLINICAL HISTORY: Reason for exam: Weakness, slurred speech. TECHNIQUE: Routine carotid CT angiography protocol was performed with intravenous contrast. NASCET criteria using the distal ICAs for comparison were used for evaluation of stenoses. Automated exposure control was utilized for the study. A dose lowering technique was utilized adhering to the principles of ALARA. MIP reconstructed images were created and reviewed. CONTRAST: Patient received 116ML OPTIRAY 320 of IV contrast COMPARISON: CTA neck on 02/16/2021 FINDINGS: VASCULATURE: Right common carotid artery: Unremarkable. No occlusion or significant stenosis. No dissection. Right internal carotid artery: Atherosclerotic changes in the right carotid bulb and proximal right ICA, causing stable approximately 50% stenosis at the origin of the right ICA. No dissection. Right external carotid artery: Unremarkable. No occlusion. Right vertebral artery: Unremarkable. No occlusion or significant stenosis. No dissection. Left common carotid artery: Unremarkable. No occlusion or significant stenosis. No dissection. Left internal carotid artery: Atherosclerotic changes in the left carotid bulb and proximal left ICA without significant stenosis. No dissection. Left external carotid artery: Unremarkable. No occlusion. Left vertebral artery: Unremarkable. No occlusion or significant stenosis. No dissection. NECK: Bones/joints: Degenerative changes of the spine. Anterior fusion changes from C4-C7. Ossifications in the nuchal ligament are likely related to remote trauma. No acute fracture. Soft tissues: Unremarkable. Lung apices: Clear. CAROTID STENOSIS REFERENCE USING NASCET CRITERIA: % ICA stenosis = (1 - narrowest ICA diameter/diameter of distal cervical ICA) x 100. Mild - <50% stenosis. Moderate - 50-69% stenosis. Severe - 70-94% stenosis. Near occlusion - 95-99% stenosis. Occluded - 100% stenosis. IMPRESSION: Atherosclerotic changes in the right carotid bulb and proximal right ICA, causing stable approximately 50% stenosis at the origin of the right ICA. No other significant stenosis, occlusion, or dissection. Communications: Call Doctor Stroke Electronically signed by: Vinayak Jett M.D. 06/25/23 22:38 PM
[2023-06-25] MEDS: SODIUM CHLORIDE 0.9% 500 ML IV ONE (22:45)
--- NOTE | 2023-06-25 23:37 | History & Physical Report ---
Date of Service June 25, 2023 Assessment & Plan (1) Slurred speech: Plan: -CBC benign, PT/INR benign, CMP benign, lipase negative, -Chest x-ray negative, -Head CT showed no acute abnormalities, did show chronic small vessel ischemic changes and cerebral volume loss. -Head CTA negative, cervical, thoracic, and lumbar CT without any acute changes, -Neck CTA showed atherosclerotic changes in the right carotid bulb and proximal right ICA causing 50% stenosis of the right ICA. -EKG with normal sinus rhythm. -UA ordered, pending collection. -Will hold home amlodipine and metoprolol to allow permissive hypertension. -Patient outside tPA window. -Will increase Lipitor to 10 mg. -Will continue on Plavix 75 mg every morning. -Will monitor on telemetry. -Will get MRI brain in the a.m. (2) Hypothyroidism: Plan: -Continue home meds (3) Bipolar disorder: Plan: -Continue home meds Plan Fluids: none Nutrition: NPO Code status: full code Dispo: PCU/telemetry History of Present Illness Chief Complaint: TIA Primary Care Provider: Leonie Dowling MD Patient is a 73-year-old female with past medical history of myelopathy, bipolar, schizoaffective disorder, hypothyroidism, hypertension, CVA who presents today with TIA symptoms. This morning around 10 AM patient started to have slurred speech that improved after he couple minutes. She also had some left arm weakness and tingling. She states that the arm symptoms have been going on and off for a long time. Though she states that the slurred speech is something new. She then states that when talking to the ED doc she also felt like her speech was slurring again, which resolved in a couple minutes. Patient also complains of leg pain and weakness though this has been a chronic issue. In the ED: CBC benign, PT/INR benign, CMP benign, lipase negative, chest x-ray negative, head CT showed no acute abnormalities, did show chronic small vessel ischemic changes and cerebral volume loss. Head CTA negative, cervical, thoracic, and lumbar CT without any acute changes, neck CTA showed atherosclerotic changes in the right carotid bulb and proximal right ICA causing 50% stenosis of the right ICA. EKG with normal sinus rhythm. Allergies Allergy/AdvReac Type Severity Reaction Status Date / Time clindamycin Allergy Severe Rash Verified 06/25/23 22:00 Cephalosporins Allergy Intermediate Swelling Verified 06/25/23 22:00 Penicillins Allergy Intermediate Swelling Verified 06/25/23 22:00 Home Medications Medication Instructions Recorded Confirmed Type amlodipine 2.5 mg tablet 2.5 mg PO HS 02/16/21 06/25/23 History levothyroxine 100 mcg tablet See Rx Instructions .Route .COMPLEX 02/16/21 06/25/23 History atorvastatin 10 mg tablet 5 mg PO HS 10/05/21 06/25/23 History clopidogrel 75 mg tablet (Plavix) 75 mg PO QAM 10/05/21 06/25/23 History metoprolol succinate 25 mg 25 mg PO HS 10/19/21 06/25/23 History tablet,extended release 24 hr (Toprol XL) pantoprazole 40 mg tablet,delayed 40 mg PO DAILY #30 tabs 06/11/23 06/25/23 Rx release (Protonix) mecobalamin (vitamin B12) 1,000 1,000 mcg PO DAILY 06/14/23 06/25/23 History mcg chewable tablet pregabalin 150 mg capsule 150 mg PO BID #60 caps 06/14/23 06/25/23 Rx risperidone 1 mg tablet 1 mg PO TID 06/25/23 06/25/23 History Past Med/Surg History Medical History (Updated 06/26/23 @ 00:08 by Aubrey Pfeiffer DO) Anemia 2 iron infusions 04/2023 RLS (restless legs syndrome) Nausea and vomiting after administration of anesthetic agent Neurogenic claudication due to lumbar spinal stenosis History of breast cancer 2015 s/p b/l mastectomy Schizoaffective disorder PCP records Glaucoma Depression Bipolar disorder PCP records--pt states she was taken off all her psychiatric meds Anxiety Stroke Amaurosis fugax 02/2021- small old infarct found on brain MRI (02/16/21)- reason for plavix Per [facility] discharge summary, to f/u with neuro and cardio outpatient (follows with Dr. Voss, ? neurology) Hypertension Mood disorder Hypothyroidism Pancreatitis hx Surgical History History of spinal fusion 10/21/21--spinal fusion T10-L2 Dr. Winston @ [facility] T11-L2 Grade 1 view, [place] 2, ETT 7.5. History of bilateral mastectomy right arm limb restriction History of ankle surgery right History of foot surgery History of rotator cuff surgery X2 History of cholecystectomy History of back surgery 2007 and 2011 Family History Other No family history of adverse response to anesthesia Social History Smoking Status: Never smoker Second Hand Exposure: No; Do You Dip or Chew Tobacco: No; Hx Alcohol Use: Yes Alcohol type: wine Hx Substance Use: No Preferred Language: Occitan Communication Ability: Effective Science Interpreter Required: No Beliefs That Will Affect Care: None marital status: Current Living Situation: Spouse Feels Safe at Home: Yes Assistive Devices: Cane and Glasses Review of Systems Review of Systems: All systems reviewed & are unremarkable except as noted in Subjective Physical Exam Physical Exam: Constitutional: well-appearing, no acute distress HEENT: NCAT, no conjunctival injection CV: regular rhythm, no murmur appreciated, extremities well-perfused, no LE edema Resp: CTABL, no wheezes/rales/rhonchi appreciated, no increased work of breathing GI: soft, nondistended, nontender, BS normoactive MSK: no gross deformities appreciated Skin: warm, dry, no rash appreciated Neuro: alert, oriented, no focal neurologic deficit appreciated, cranial nerves II through XII intact, sensation intact Results & Data Results & Data Vital Signs (Past 12 Hours) Vital Signs Temp Pulse Resp BP BP Pulse Ox O2 Del Method 06/25/23 23:04 153/82 H 06/25/23 23:00 76 15 97 06/25/23 22:50 75 11 L 99 06/25/23 22:31 74 11 L 100 Room Air 06/25/23 22:10 100 Room Air 06/25/23 22:00 75 16 146/74 H 100 06/25/23 21:45 73 17 153/75 H 100 06/25/23 21:45 73 06/25/23 17:40 36.6 C 78 20 109/73 100 Room Air Resident Activity Tracking Resident Involvement: Resident Care Provided Care Provided: Adult Hospital Medicine
[2023-06-26] MEDS ORDERED: PHARMACIST DISCHARGE MED REC CONSULT PRN (01:23)
[2023-06-26] MEDS: GADOBUTROL 65ML VIAL IV ONE (03:18)
--- NOTE | 2023-06-26 04:28 | Billing Data ---
Date of Service June 25, 2023 Coding Level of Care Code 21288 INT INP/OBS CARE
[2023-06-26 05:06] LABS: Basophils # (auto) 0.02 K/uL (0.00-0.20); Basophils % (auto) 0.3 %; Eosinophils # (auto) 0.01 K/uL (0.00-0.50); Eosinophils % (auto) 0.2 %; Hematocrit (blood only) 43.2 % (37.0-47.0); Hemoglobin 14.2 g/dl (12.0-16.0); Lymphocytes # (auto) 1.09 K/uL (1.20-3.40); Lymphocytes % (auto) 18.2 %; Mean Corpuscular Hemoglobin 28.6 pg (25.0-34.0); Mean Corpuscular Hgb Conc 32.9 g/dL (32.0-36.0); Mean Corpuscular Volume 86.9 fL (80.0-100.0); Mean Platelet Volume 9.8 fL (9.4-12.4); Monocytes # (auto) 0.61 K/uL (0.11-0.59); Monocytes % (auto) 10.2 %; Neutrophils # (auto) 4.25 K/uL (1.40-6.50); Neutrophils % (auto) 71.1 %; Platelet Count 182 K/uL (130-400); RDW Coefficient of Variation 15.4 % (11.5-14.5); RDW Standard Deviation 48.6 fL (36.4-46.3); Red Blood Count 4.97 M/uL (4.20-5.40); White Blood Count 5.98 K/ul (4.8-10.8)
[2023-06-26 05:21] LABS: Albumin Globulin Ratio 1.9 (0.9-2); Albumin Level 3.8 gm/dl (3.4-5.0); BUN Creatinine Ratio 26.3 (10-20); Bilirubin,Total 0.5 mg/dl (0.2-1.0); Calcium 9.7 mg/dl (8.6-10.3); Creatinine Clr Calc Pharmacy 93.2 ml/min; Est GFR (African American) 105.1 ml/min; Est GFR (Non-African American) 90.7 ml/min; Potassium 4.1 mmol/L (3.5-5.1); Total Protein 5.8 gm/dl (6.0-8.3)
[2023-06-26] MEDS: LEVOTHYROXINE SODIUM 100 MCG TABLET PO SCH (06:47)
[2023-06-26] MEDS: ACETAMINOPHEN 1,000 MG/100 ML VIAL IV STA (07:15)
[2023-06-26] MEDS: PREGABALIN 150 MG CAP PO SCH (08:10)
[2023-06-26] MEDS: PANTOprazole 40 MG TAB PO SCH (08:10)
[2023-06-26] MEDS: CLOPIDOGREL BISULFATE 75 MG TAB PO SCH (08:11)
[2023-06-26] MEDS: risperiDONE 1 MG TABLET PO SCH (08:11)
--- NOTE | 2023-06-26 08:11 | Magnetic Resonance Report ---
MRI OF THE BRAIN COMBO CLINICAL HISTORY: Transient ischemic attack. COMPARISON STUDY: CT of the brain dated 06/25/2023. MRI of the brain dated 02/16/2021. TECHNIQUE: MRI of the brain was performed utilizing various T1 and T2-weighted sequences in the axial , sagittal, and coronal planes. Contrast-enhanced sequences were acquired following the administratio n of 8.5 cc of Gadavist. FINDINGS: Brain parenchyma: There is age-related involutional change noting minimal microangiopathic disease. T here is no hemorrhage or mass effect. There is no restricted diffusion to suggest acute ischemia. No enhancing mass lesion is identified on the postcontrast images. Hess-white matter differentiation is preserved. No extra-axial fluid collection is seen. The cerebellar tonsils are normal in configuratio n. Ventricles, sulci, and cisterns: Prominent secondary to involutional change. Pituitary and sella: Unremarkable. Intracranial vasculature: Normal flow voids are maintained at the skull base. Orbits: The bony orbits are grossly intact. Orbital contents are normal in appearance noting bilatera l ocular lens implants. Sinuses and mastoids: Clear. Calvarium: Unremarkable. Cervical cord: Partially visualized cervical spinal cord is normal in morphology and signal intensity . IMPRESSION: No acute intracranial abnormality. ACT 112: Negative or not required by law. Electronically signed by: Asa Rangel M.D. 06/26/2023 8:09 AM
--- NOTE | 2023-06-26 09:22 | Discharge Summary ---
Date of Service June 26, 2023 Admission HPI Per Admitting Provider Patient is a 73-year-old female with past medical history of myelopathy, bipolar, schizoaffective disorder, hypothyroidism, hypertension, CVA who presents today with TIA symptoms. This morning around 10 AM patient started to have slurred speech that improved after he couple minutes. She also had some left arm weakness and tingling. She states that the arm symptoms have been going on and off for a long time. Though she states that the slurred speech is something new. She then states that when talking to the ED doc she also felt like her speech was slurring again, which resolved in a couple minutes. Patient also complains of leg pain and weakness though this has been a chronic issue. In the ED: CBC benign, PT/INR benign, CMP benign, lipase negative, chest x-ray negative, head CT showed no acute abnormalities, did show chronic small vessel ischemic changes and cerebral volume loss. Head CTA negative, cervical, thoracic, and lumbar CT without any acute changes, neck CTA showed atherosclerotic changes in the right carotid bulb and proximal right ICA causing 50% stenosis of the right ICA. EKG with normal sinus rhythm. Admission Exam Per Admitting Provider Constitutional: well-appearing, no acute distress HEENT: NCAT, no conjunctival injection CV: regular rhythm, no murmur appreciated, extremities well-perfused, no LE edema Resp: CTABL, no wheezes/rales/rhonchi appreciated, no increased work of breathing GI: soft, nondistended, nontender, BS normoactive MSK: no gross deformities appreciated Skin: warm, dry, no rash appreciated Neuro: alert, oriented, no focal neurologic deficit appreciated, cranial nerves II through XII intact, sensation intact Principal Diagnosis back pain Discharge Exam Constitutional: well-appearing, no acute distress HEENT: NCAT, no conjunctival injection CV: RRR no m/r/g, clinically well perfused, no edema Resp: CTAB, no wheezing, no increased work of breathing GI: soft, nondistended, nontender MSK: no gross deformities appreciated Skin: warm, dry, no rash appreciated Neuro: alert, oriented, no focal neurologic deficit appreciated, cranial nerves II through XII intact, sensation intact, no saddle paraesthesia Discharge Data Allergies Allergy/AdvReac Type Severity Reaction Status Date / Time clindamycin Allergy Severe Rash Verified 06/25/23 22:00 Cephalosporins Allergy Intermediate Swelling Verified 06/25/23 22:00 Penicillins Allergy Intermediate Swelling Verified 06/25/23 22:00 Consultations 06/25/23 22:34 ED Decision to Admit Stat Ordered Studies Cervical Spine CT 06/25/23 17:45 FINDINGS: Bones: Anterior fusion changes from C4-C7. No acute fracture or bony lesion. Ossifications in the nuchal ligament are likely related to remote trauma. Disc spaces: Degenerative changes of the spine. Mild anterolisthesis of C2 on C3 and C7 on T1. Soft tissues: Normal. Other: Atherosclerotic changes of the vasculature. IMPRESSION: No acute traumatic abnormality. Chest X-Ray 06/25/23 17:45 FINDINGS: An AP, portable, upright chest radiograph is compared to study dated 08/17/2022. Surgical clips are seen in the chest wall bilaterally. The cardiomediastinal silhouette is top normal for projection. The lungs and pleural spaces are clear. No pneumothorax is seen. The skeletal structures are osteopenic. The bony thorax is grossly intact. Thoracolumbar spinal rods are in place. Fusion hardware is seen in the lower cervical spine. 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 Superior subluxation of the humeral heads suggest chronic bilateral rotator cuff injuries. IMPRESSION: No active disease in the chest. Head CT 06/25/23 17:45 FINDINGS: Brain: No acute infarct or hemorrhage identified. No extra-axial fluid collection. No mass effect or midline shift. Scattered areas of hypoattenuation in the supratentorial white matter likely represent chronic small vessel ischemic changes. Ventricles and sulci: Prominence of the ventricles and sulci is likely secondary to cerebral volume loss. Bones: Normal. No bony lesion or acute fracture. Subcutaneous tissues: Normal. Sinuses: Mild mucosal thickening in the ethmoid air cells. Mastoid air cells: Normal. Orbits: Bilateral lens implants. Other: Atherosclerotic calcifications in the intracranial vasculature. IMPRESSION: 1. No acute intracranial abnormality. 2. Mild chronic small vessel ischemic changes and cerebral volume loss. Head CTA 06/25/23 17:45 FINDINGS: Right internal carotid artery: Mild atherosclerotic calcifications of the distal right ICA. No significant stenosis. No aneurysm. Right anterior cerebral artery: Unremarkable. No occlusion or significant stenosis. No aneurysm. Right middle cerebral artery: Unremarkable. No occlusion or significant stenosis. No aneurysm. Right posterior cerebral artery: Unremarkable. No occlusion or significant stenosis. No aneurysm. Right vertebral artery: Unremarkable as visualized. Left internal carotid artery: No acute findings. Intracranial segment is patent with no significant stenosis. No aneurysm. Left anterior cerebral artery: Unremarkable. No occlusion or significant stenosis. No aneurysm. Left middle cerebral artery: Unremarkable. No occlusion or significant stenosis. No aneurysm. Left posterior cerebral artery: Unremarkable. No occlusion or significant stenosis. No aneurysm. Left vertebral artery: Unremarkable as visualized. Basilar artery: Unremarkable. No occlusion or significant stenosis. No aneurysm. IMPRESSION: No significant stenosis, occlusion, or aneurysm in the central or large intracranial arteries Lumbar Spine CT 06/25/23 17:45 FINDINGS: Bones: Spinal fusion rods partially visualized. Laminectomies in the lumbar spine. No acute fracture or bony lesion. Disc spaces: Degenerative changes of the spine. Grade 1 anterolisthesis of T12 on L1, L3 on L4, and L4 on L5. Mild retrolisthesis of L1 on L2. Evaluation of the spinal canal is limited by artifact from the spinal rods. No significant spinal canal stenosis at L2-3 and L3-4. Severe neural foraminal stenoses at L5- S1. Severe neural foraminal stenoses at L1-2. Soft tissues: Normal. Other: Atherosclerotic changes of the vasculature. IMPRESSION: 1. No acute traumatic abnormality. 2. Extensive spinal fusion rods partially visualized. Evaluation of the spinal canal is limited by artifact from the spinal rods. No significant spinal canal stenosis at L2-3 and L3-4. Severe neural foraminal stenoses at L5-S1. Severe neural foraminal stenoses at L1-2. Further evaluation could be attempted with MRI if clinically indicated. Neck CTA 06/25/23 17:45 FINDINGS: VASCULATURE: Right common carotid artery: Unremarkable. No occlusion or significant stenosis. No dissection. Right internal carotid artery: Atherosclerotic changes in the right carotid bulb and proximal right ICA, causing stable approximately 50% stenosis at the origin of the right ICA. No dissection. Right external carotid artery: Unremarkable. No occlusion. Right vertebral artery: Unremarkable. No occlusion or significant stenosis. No dissection. Left common carotid artery: Unremarkable. No occlusion or significant stenosis. No dissection. Left internal carotid artery: Atherosclerotic changes in the left carotid bulb and proximal left ICA without significant stenosis. No dissection. Left external carotid artery: Unremarkable. No occlusion. Left vertebral artery: Unremarkable. No occlusion or significant stenosis. No dissection. NECK: Bones/joints: Degenerative changes of the spine. Anterior fusion changes from C4-C7. Ossifications in the nuchal ligament are likely related to remote trauma. No acute fracture. Soft tissues: Unremarkable. Lung apices: Clear. CAROTID STENOSIS REFERENCE USING NASCET CRITERIA: % ICA stenosis = (1 - narrowest ICA diameter/diameter of distal cervical ICA) x 100. Mild - <50% stenosis. Moderate - 50-69% stenosis. Severe - 70-94% stenosis. Near occlusion - 95-99% stenosis. Occluded - 100% stenosis. IMPRESSION: Atherosclerotic changes in the right carotid bulb and proximal right ICA, causing stable approximately 50% stenosis at the origin of the right ICA. No other significant stenosis, occlusion, or dissection. Thoracic Spine CT 06/25/23 17:45 FINDINGS: Bones: Spinal rods seen in the mid and lower thoracic spine and upper lumbar spine. Cervical fusion hardware partially visualized. Chronic appearing compression deformity of T9 and T10. No acute fracture or bony lesion. Disc spaces: Degenerative changes of the spine. Mild anterolisthesis of T3 on T4 and T12 on L1. No significant spinal canal stenosis in the upper and mid thoracic spine. Evaluation of the lower thoracic spinal canal is limited by artifact from the spinal fusion rods. Limited evaluation of the neural foramina, but there appears to be severe neural foraminal stenoses at T1-T2, T2- 3, T8-9, T9-10. Soft tissues: Normal. Other: Atherosclerotic changes of the vasculature. IMPRESSION: 1. No acute traumatic abnormality. 2. No significant spinal canal stenosis in the upper and mid thoracic spine. Evaluation of the lower thoracic spinal canal is limited by artifact from the spinal fusion rods. Limited evaluation of the neural foramina, but there appears to be severe neural foraminal stenoses at T1-T2, T2-3, T8-9, T9-10. Further evaluation could be attempted with MRI if clinically indicated. Brain MRI 06/26/23 01:23 FINDINGS: Brain parenchyma: There is age-related involutional change noting minimal microangiopathic disease. There is no hemorrhage or mass effect. There is no restricted diffusion to suggest acute ischemia. No enhancing mass lesion is identified on the postcontrast images. Hess-white matter differentiation is preserved. No extra-axial fluid collection is seen. The cerebellar tonsils are normal in configuration. Ventricles, sulci, and cisterns: Prominent secondary to involutional change. Pituitary and sella: Unremarkable. Intracranial vasculature: Normal flow voids are maintained at the skull base. Orbits: The bony orbits are grossly intact. Orbital contents are normal in appearance noting bilateral ocular lens implants. Sinuses and mastoids: Clear. Calvarium: Unremarkable. Cervical cord: Partially visualized cervical spinal cord is normal in morphology and signal intensity. IMPRESSION: No acute intracranial abnormality. Hospital Course (1) Slurred speech: Patient was seen by PCP's office 06/25 as her back pain was worsening. Reviewed outpatient note - PCP concerned for unilateral weakness/sensation changes in addition to slurred speech. Patient notes that symptoms were bilateral involving the face and upper body. She believes this may have been associated with anxiety. She attributes instance of slurred speech to the oxycodone she took earlier that day. She was more concerned about back pain upon arrival to the ED. Asymptomatic at this point from a neurological standpoint. Stroke work up negative. 50% stenosis right ICA. Very low suspicion for cerebrovascular event. Will increase atorvastatin to 10 mg. No need for high-intensity dosing or DAPT at this point. Follow up outpatient. Resume home antihypertensives on discharge. In regards to her back pain, she has an appointment with pain management 07/17. Did have improvement with oxycodone 5 mg and IV Tylenol. PDMP reviewed. Would give short script of oxycodone 5 mg (10 tabs) and rec PCP follow up. (2) Hypothyroidism: -Continue home meds (3) Bipolar disorder: -Continue home meds (4) S/P fusion of thoracic spine: (5) Back pain: (6) History of back surgery: (7) Myelopathy concurrent with and due to spinal stenosis of thoracic region: Total Time Total Time Spent Total Time Spent (In Minutes): <30 Discharge Plan Discharge Items Patient Disposition: Home - Self-Care Reason For Visit: TIA Discharge Diagnosis: TIA symptoms Activity: Per Instructions section Non-emergency contact: Primary Care Provider Call non-emergency contact if: you have any medication questions and your symptoms worsen Follow-up/Referrals: Leonie Dowling MD [Primary Care Provider] - Dorcas Leo DO [Outside Practitioners] - ([facility]) Diet: Heart Healthy Addtl Attending Provider Instructions: You were admitted to the hospital for concern for stroke like symptoms and pain control. Stroke workup was negative. We were able to control your pain with IV Tylenol. We have also given you a small script of oxycodone. Follow up with your PCP to continue with outpatient management of your pain. With the neurological symptoms we cannot rule out TIA. We increased your atorvastatin to 40 mg. We will also add aspirin 81 mg to the Plavix for three weeks. A discharge summary will be sent to your primary care physician to ensure con tinuity of care. Please bring this discharge summary with you to your next office appointment so that your provider can review it at that time. Follow-up appointments: Make a follow-up appointment with your PCP within the next week. It is very important that you follow up with them shortly after discharge from the hospital. Keep all your follow-up appointments as already scheduled. If you cannot make an appointment, notify your provider. Medications: Your medication list has been reviewed and reconciled upon discharge to ensure accuracy and continuity of care. An updated list of all your medications is included with your hospital discharge paperwork. Please review this list closely, and make note of any changes. Medication changes: STOP: atorvastatin 5 mg START: atorvastatin 10 mg Take your medications as instructed; do not skip a dose of your medicines. Make sure all of your doctors know every medicine you are taking (including euev-uli-xyldhuw medicines, vitamins, and supplements). Call your primary care provider before taking any new medicines (including over- the-counter medicines, vitamins, and supplements), because some of these may interact with your current medications, or may make your symptoms worse. Tell your primary care provider if you cannot afford your medications. CONTACT YOUR PRIMARY CARE PROVIDER if you experience any of the following: worsening pain new neurological symptoms difficulty following your treatment plan, or difficulty taking medications CALL 911 OR GO TO THE EMERGENCY DEPARTMENT if you experience any of the following: Sudden, severe abdominal pain or nausea/vomiting Severe chest pain, or chest pain that radiates (moves) to your jaw or arm Sudden, severe shortness of breath or difficulty breathing Thank you for allowing us to participate in your care Pending Studies at Discharge: No Stand-Alone Forms: My [employer], Smoking Cessation Medications and DC Order Prescriptions: New atorvastatin 10 mg Tablet 10 mg PO HS 30 Days Qty: 30 0RF oxycodone 5 mg tablet 5 mg PO TID PRN (Reason: pain) Qty: 10 0RF Rx Instructions: 0.5 tab for severe, 1 tab for breakthrough Continued pregabalin 150 mg capsule 150 mg PO BID Qty: 60 5RF mecobalamin (vitamin B12) 1,000 mcg tablet,chewable 1,000 mcg PO DAILY clopidogrel [Plavix] 75 mg Tablet 75 mg PO QAM metoprolol succinate [Toprol XL] 25 mg Tablet Extended Release 24 Hr 25 mg PO HS levothyroxine 100 mcg tablet See Rx Instructions .ROUTE .COMPLEX Rx Instructions: TAKES 100 MCG SUNDAY THROUGH SUNDAY, THEN 200 MCG ON SUNDAYS ONLY. amlodipine 2.5 mg tablet 2.5 mg PO HS pantoprazole [Protonix] 40 mg tablet,delayed release (DR/EC) 40 mg PO DAILY Qty: 30 5RF risperidone 1 mg tablet 1 mg PO TID Discontinued atorvastatin 10 mg Tablet 5 mg PO HS Discharge Orders: Discharge Order (Routine); Ordered 06/26/23 Ordered By: Edgardo Cristina Admission Data Admit Date/Time: 06/25/23 23:53 Attending Provider: Aubrey Clark Admit Provider: Asa Dsouza Primary Care Provider: Leonie Dowling Other Providers: Ling Clemons Other Interventions: Discharge Summary Assessment (RN) Last Done: 06/26/23 14:00 Supervising Physician Co-Signing Physician Notes I personally examined the patient and verified all means points of history and exam, discussed case, and agree with decision making with Dr Bianchi Was having worsening pain. Took an oxycodone. Thinks her PCP's PA was concerned about her slurring her words and sent her to the ER. In regards to numbness and weaknessshe notes it is absolutely symmetric and bilateral, and more of a weird sensation that she can only describe it as a numbness or weakness not a focal numbness/weakness. Notes this has happened beforeshe relates it is in the context of having fairly uncontrolled pain, wondering what she can do about the pain, and then having anxiety kick up because of her concern about what she could or could not do about her pain. Vitals noted, in general she is awake and alert pleasant no distress. HEENT normocephalic atraumatic mucous membranes moist. Breathing unlabored no accessory muscle use good effort. Skin shows no rashes no pallor or icterus. Neuro without focal deficits. On revisiting her history, it seems that she is really essentially made the diagnosisthat she has severe chronic pain, and then understandably whenever she starts to feel worse pain or hopeless about her pain, it sends her into a panic attackwhich accounts for the bilateral symmetrical numbness/weakness. Discussed extensively a more holistic model of looking at her painincluding looking at the muscles/ligaments, rather than just the bones and discdiscussed that she should definitely keep her follow-up with pain management in a few weeks, but that I also would strongly suspect she get much higher yield/much higher benefit out of a trial of OMT. Discussed that [facility] has several DO's that are proficient with OMT, discussed that likely will take quite a while before she starts to see significant improvement, but that in my experience whenever I was in the office, situations like hers it would not be unreasonable to think she could have a significant benefit in her overall pain and quality of life. For now, limited prescription of oxycodone to bridge until she is able to get started with OMT and sees pain management. Otherwise as above. Resident Activity Tracking Resident Involvement: Resident Care Provided Care Provided: Adult Hospital Medicine
--- NOTE | 2023-06-26 13:56 | Pharmacy Report ---
- Date of Service June 26, 2023 - Pharmacy CVA/TIA Medication Review Discussed with provider, high intensity statin deferred due to symptoms likely due to pain, not TIA.
[2023-06-26] MEDS: STROKE PATIENT DISCHARGE STA (14:17)
--- NOTE | 2023-06-26 19:41 | Billing Data ---
Date of Service June 26, 2023 Coding Level of Care Code 86493 IN/OBS DISCH 30 MIN/LESS
[2023-06-26] MEDS ORDERED: ATORVASTATIN 10 MG TAB PO SCH (21:00)
--- NOTE | 2023-06-27 05:54 | Electrocardiogram Report ---
Test Reason : Blood Pressure : / mmHG Vent. Rate : 068 BPM Atrial Rate : 068 BPM P-R Int : 190 ms QRS Dur : 106 ms QT Int : 432 ms P-R-T Axes : 062 031 070 degrees QTc Int : 460 ms Normal sinus rhythm Normal ECG When compared with ECG of 22-MAR-2023 13:34, Nonspecific T wave abnormality, improved in Anterolateral leads Confirmed by Jasvir Mcclellan ([id number]) on 06/27/2023 5:53:45 AM Referred By: REFERRED SELF Confirmed By:Jasvir Mcclellan
[2023-07-01] MEDS ORDERED: LEVOTHYROXINE SODIUM 100 MCG TABLET PO SCH (06:30)
== END 2023-06-26 14:23 | disposition home or self-care (01) ==
LOC: EDINP 17:34 → ED 17:34 → SUATTDRO 23:53 → EDINP 06-26 01:23

== ENCOUNTER 2023-10-22 10:02 | Observation (INO) ==
--- NOTE | 2023-09-13 12:04 | PAT Medication Instructions ---
Medication Instructions Date of Service September 13, 2023 Home Medications Medication Instructions Recorded pantoprazole 40 mg tablet,delayed 40 mg PO DAILY #30 tabs 06/11/23 release (Protonix) pregabalin 150 mg capsule 150 mg PO BID #60 caps 06/14/23 oxycodone 5 mg tablet 5 mg PO TID PRN pain #10 tabs 06/26/23 amlodipine 2.5 mg tablet 2.5 mg PO HS levothyroxine 100 mcg tablet See Rx Instructions .Route .COMPLEX clopidogrel 75 mg tablet (Plavix) 75 mg PO QAM metoprolol succinate 25 mg tablet,extended release 24 hr (Toprol XL) 25 mg PO HS pantoprazole 40 mg tablet,delayed release (Protonix) 40 mg PO DAILY pregabalin 150 mg capsule 150 mg PO BID risperidone 1 mg tablet 1 mg PO TID oxycodone 5 mg tablet 5 mg PO TID PRN pain methocarbamol 500 mg tablet 500 mg PO TID PRN MUSCLE SPASMS ASK your prescriber and surgeon clopidogrel 75 mg tablet (Plavix) 75 mg PO QAM (From anesthesia perspective, Clopidogrel/Plavix needs to be stopped 7 days before surgery. Please check if okay with doctor that prescribes this to you) Take morning of surgery With a small sip of water, OTHERWISE NOTHING TO EAT OR DRINK AFTER MIDNIGHT: levothyroxine pantoprazole 40 mg tablet,delayed release (Protonix) 40 mg PO DAILY pregabalin 150 mg capsule 150 mg PO BID risperidone 1 mg tablet 1 mg PO TID oxycodone 5 mg tablet 5 mg PO TID PRN pain (if needed) methocarbamol 500 mg tablet 500 mg PO TID PRN MUSCLE SPASMS (if needed) Take evening before surgery amlodipine 2.5 mg tablet 2.5 mg PO HS metoprolol succinate 25 mg tablet,extended release 24 hr (Toprol XL) 25 mg PO HS pregabalin 150 mg capsule 150 mg PO BID risperidone 1 mg tablet 1 mg PO TID oxycodone 5 mg tablet 5 mg PO TID PRN pain (if needed) methocarbamol 500 mg tablet 500 mg PO TID PRN MUSCLE SPASMS (if needed) Other Notes If you have any questions please call us at [phone] or [phone] or [phone] or [phone]
--- NOTE | 2023-09-18 14:31 | Anesthesiology Consultation ---
Date of Service September 18, 2023 Assessment & Plan (1) Encounter for pre-operative examination: - awaiting surgeon ordered medical (Dr. Gomez [facility] PCP) and cardiology ([facility]) pre- operative evaluations. - right arm restriction. - Outpatient joint assessment: Patient is currently scheduled for inpatient pathway. If re-evaluated and patient/surgeon requests outpatient pathway, patient is/is not acceptable candidate for outpatient joint program from anesthesia standpoint pending surgeon's office assessment of pt motivation/support/completion of same day joint program preop requirements. Chart Review Chart Review: Pending: Refer to Additional Notes / Consult section and Patient seen in Pre Admission Testing Teaching & Discussion Pre-Anesthesia Teaching/Discussion Notes: Instructed NPO after midnight before surgery, except medications with 15 cc of water. Medication instructions provided according to the PAT guidelines. History Surgery Operation Date: 10/22/23 07:30 Proposed Procedures p OP: Right Total Knee Replacement - Chapo Yo MD Height/Weight Height: 5 ft 2 in Weight: 94.8 kg Allergies Allergy/AdvReac Type Severity Reaction Status Date / Time clindamycin Allergy Severe Rash Verified 09/13/23 09:51 Cephalosporins Allergy Intermediate Swelling Verified 09/13/23 09:51 Penicillins Allergy Intermediate Swelling Verified 09/13/23 09:51 Medications Home Medications Medication Instructions Recorded Confirmed Last Taken amlodipine 2.5 mg tablet 2.5 mg PO HS 02/16/21 09/13/23 06/24/23 levothyroxine 100 mcg tablet See Rx Instructions .Route .COMPLEX 02/16/21 09/13/23 06/25/23 clopidogrel 75 mg tablet (Plavix) 75 mg PO [facility] 10/05/21 09/13/23 06/25/23 metoprolol succinate 25 mg 25 mg PO HS 10/19/21 09/13/23 06/24/23 tablet,extended release 24 hr (Toprol XL) pantoprazole 40 mg tablet,delayed 40 mg PO DAILY #30 tabs 06/11/23 09/13/23 06/25/23 release (Protonix) pregabalin 150 mg capsule 150 mg PO BID #60 caps 06/14/23 09/13/23 06/25/23 08:00 risperidone 1 mg tablet 1 mg PO TID 06/25/23 09/13/23 06/25/23 08:00 oxycodone 5 mg tablet 5 mg PO TID PRN pain #10 tabs 06/26/23 09/13/23 Unknown methocarbamol 500 mg tablet 500 mg PO TID PRN MUSCLE SPASMS 09/13/23 09/13/23 Unknown atorvastatin 10 mg tablet 5 mg PO QPM 09/18/23 09/18/23 Unknown Additional Notes: Patient brought home medication list which was reconciled, atorvastatin 5 mg t aken in the evening added to EMR and written on provided medication instructions to be continued as normal. Past Medical History Medical History (Updated 09/18/23 @ 14:38 by Holley Mathias PA-C) Anxiety Bipolar disorder PCP records--pt states she was taken off all her psychiatric meds Depression Gait disorder Glaucoma History of breast cancer 2015 s/p b/l mastectomy Hypertension controlled, stable per pt Hypothyroidism PAIGE (iron deficiency anemia) 2 iron infusions 04/2023 Limb alert care status right arm restriction. Mood disorder Nausea and vomiting after administration of anesthetic agent denies needing scop patch Neurogenic claudication due to lumbar spinal stenosis Pancreatitis (~2012) hx RLS (restless legs syndrome) Schizoaffective disorder PCP records Stroke Amaurosis fugax 02/2021- small old infarct found on brain MRI (02/16/21)- reason for plavix Per [facility] discharge summary, to f/u with neuro and cardio outpatient (follows with Dr. Voss, ? neurology) Patient denies h/o seizures, heart attack, heart failure, DM, blood clots/DVTs. Exercise / Class Metabolic Activity III < 4 Walking/Shop/Light housework (ambulates with rolling walker, denies chest discomfort or shortness of breath with usual activities) Past Family History Family History Other No family history of adverse response to anesthesia Past Surgical History Surgical History (Updated 09/18/23 @ 14:39 by Holley Mathias PA-C) History of ankle surgery right History of back surgery 2007 and 2011 History of bilateral mastectomy right arm limb restriction History of cholecystectomy History of esophagogastroduodenoscopy (EGD) History of foot surgery left History of rotator cuff surgery bilat, X2 History of spinal fusion 10/21/21--spinal fusion T10-L2 Dr. Winston @ [facility] T11-L2 Grade 1 view, [place] 2, ETT 7.5. Hx of colonoscopy Past Anesthesia History No Hx of Anesthesia Complications and No Family Hx of Anesthesia Complications History of PONV No Hx of Motion Sickness and History of PONV (denies needing scop patch) Social History Smoking Status: Never smoker Do You Dip or Chew Tobacco: No Hx Alcohol Use: Yes Alcohol type: wine alcohol intake frequency: holidays/special occasions only Hx Substance Use: No substance use type: does not use Review of Systems Snoring, denies witnessed apneas. Patient denies chest pain, shortness of breath, dyspnea on exertion, fever, chills, cough, wheezing, or palpitations. Physical Exam Vital Signs Vitals BP 143/68 P 74 TEMP 97.5 SP02 97% on RA RESP 18 Physical Patient resting comfortably in chair in no acute distress, alert and oriented, responding appropriately throughout visit Full cervical extension range of motion without pain TMD 3.5 finger breadths Mallampati Score 2 Dentition: several caps, denies chipped or loose teeth, crowns, implants or bridges Lungs: normal respiratory effort. Good air movement, clear throughout to auscultation, no adventitious breath sounds Cardiac: regular rate and rhythm, no murmurs noted Carotid arteries: negative bruit bilat Lab Results Anesthesia Preop Results Results Anesthesia Widget: WBC 4.72 K/ul (4.8-10.8) L 09/18/23 Hgb 13.3 g/dl (12.0-16.0) 09/18/23 Hct 41.5 % (37.0-47.0) 09/18/23 Plt 216 K/uL (130-400) 09/18/23 Na 139 mmol/L (136-145) 09/18/23 K 4.3 mmol/L (3.5-5.1) 09/18/23 Cl 104 mmol/L (98-107) 09/18/23 CO2 28 mmol/L (21-32) 09/18/23 BUN 13 mg/dl (6-23) 09/18/23 Creat 0.70 mg/dl (0.6-1.2) 09/18/23 Glucose Level 102 mg/dl (70-99(Fasting)) H 09/18/23 PT 10.1 Seconds (9.0-12.0) 09/18/23 PTT 29 Seconds (21-31) 09/18/23 INR 0.9 (0.9-1.1) 09/18/23 HA1c 5.2 % (4.5-5.6) 09/18/23 Urine Color Yellow 09/18/23 Urine Appearance Clear (Clear) 09/18/23 Urine pH 6.0 (4.5-7.5) 09/18/23 Urine Specific [place] 1.006 (1.000-1.030) 09/18/23 Urine Protein Negative (Negative) 09/18/23 Urine Glucose (UA) Negative (Negative) 09/18/23 Urine Ketones Negative (Negative) 09/18/23 Urine Blood Negative (Negative) 09/18/23 Urine Nitrite Negative (Negative) 09/18/23 Urine Bilirubin Negative (Negative) 09/18/23 Urine Urobilinogen Negative (Negative) 09/18/23 Urine Leukocyte Esterase Negative (Negative) 09/18/23 Blood Type B Positive 09/18/23 Antibody Screen NEGATIVE 09/18/23 Testing Electrocardiogram Date: 06/25/23 NSR, rate 68 bpm Chest X-Ray Date: 06/25/23 *1view* No active disease in the chest. Echocardiogram Date: 02/17/21 EF 55-60% Normal LV wall motion Mild mitral regurgitation Mild aortic regurgitation Stress Test Date: 10/18/21 Negative pharmacologic stress echo and EKG for ischemia at 83% MPHR EF 70% Normal LV wall motion Cervical Spine Date: 06/25/23 No acute traumatic abnormality. Other Testing Brain MRI 06/26/23 No acute intracranial abnormality. Thoracic spine CT 06/25/23 1. No acute traumatic abnormality. 2. No significant spinal canal stenosis in the upper and mid thoracic spine. Evaluation of the lower thoracic spinal canal is limited by artifact from the spinal fusion rods. Limited evaluation of the neural foramina, but there appears to be severe neural foraminal stenoses at T1- T2, T2-3, T8-9, T9-10. Further evaluation could be attempted with MRI if clinically indicated. Head and neck CTA 06/25/23 Atherosclerotic changes in the right carotid bulb and proximal right ICA, causing stable approximately 50% stenosis at the origin of the right ICA. No other significant stenosis, occlusion, or dissection. No significant stenosis, occlusion, or aneurysm in the central or large intracranial arteries. Lumbar CT 06/25/23 1. No acute traumatic abnormality. 2. Extensive spinal fusion rods partially visualized. Evaluation of the spinal canal is limited by artifact from the spinal rods. No significant spinal canal stenosis at L2-3 and L3-4. Severe neural foraminal stenoses at L5-S1. Severe neural foraminal stenoses at L1-2. Further evaluation could be attempted with MRI if clinically indicated. Head CT 06/25/23 1. No acute intracranial abnormality. 2. Mild chronic small vessel ischemic changes and cerebral volume loss.
--- NOTE | 2023-10-19 16:53 | History & Physical Report ---
Date of Service October 19, 2023 Assessment & Plan (1) DJD (degenerative joint disease) of knee: Plan: right total knee replacement with patient's specific implants overnight stay home health with [facility] History of Present Illness Chief Complaint: right knee pain Primary Care Provider: Leonie Dowling MD patient is a 73-year-old female with greater than 4-year history of bilateral knee pain right greater than left. The pain is associated with increased deformity, decreased standing and walking tolerance. She rates the pain as a 5 out of 10. Her pain is associated with instability loss of balance. She has requires a cane for all activities of daily living. She has failed conservative management and is admitted for elective knee replacement surgery. X-rays confirm severe disease of both knees with a windswept deformity. Allergies Allergy/AdvReac Type Severity Reaction Status Date / Time clindamycin Allergy Severe Rash Verified 09/13/23 09:51 Cephalosporins Allergy Intermediate Swelling Verified 09/13/23 09:51 Penicillins Allergy Intermediate Swelling Verified 09/13/23 09:51 Home Medications Medication Instructions Recorded Confirmed Type amlodipine 2.5 mg tablet 2.5 mg PO HS 02/16/21 09/13/23 History levothyroxine 100 mcg tablet See Rx Instructions .Route .COMPLEX 02/16/21 09/13/23 History clopidogrel 75 mg tablet (Plavix) 75 mg PO QAM 10/05/21 09/13/23 History metoprolol succinate 25 mg 25 mg PO HS 10/19/21 09/13/23 History tablet,extended release 24 hr (Toprol XL) pantoprazole 40 mg tablet,delayed 40 mg PO DAILY #30 tabs 06/11/23 09/13/23 Rx release (Protonix) pregabalin 150 mg capsule 150 mg PO BID #60 caps 06/14/23 09/13/23 Rx risperidone 1 mg tablet 1 mg PO TID 06/25/23 09/13/23 History oxycodone 5 mg tablet 5 mg PO TID PRN pain #10 tabs 06/26/23 09/13/23 Rx methocarbamol 500 mg tablet 500 mg PO TID PRN MUSCLE SPASMS 09/13/23 09/13/23 History atorvastatin 10 mg tablet 5 mg PO QPM 09/18/23 09/18/23 History Past Med/Surg History Problem List (Updated 10/19/23 @ 16:53 by Chapo Yo MD) DJD (degenerative joint disease) of knee Arm paresthesia, left (Acute) Slurred speech (Acute) Muscle spasms of both lower extremities S/P fusion of thoracic spine Myelopathy concurrent with and due to spinal stenosis of thoracic region Encounter for pre-operative examination Amaurosis fugax of right eye 02/2021 Upper respiratory infection (Acute) UTI (urinary tract infection) (Acute) Postoperative state (Acute 04/23/13) Nausea & vomiting (Acute) Nasal fracture (Acute) Mood disorder of depressed type (Acute) Fall (Acute) Abdominal pain (Acute) Transient visual loss PAIGE (iron deficiency anemia) 2 iron infusions 04/2023 Gait disorder RLS (restless legs syndrome) Hypothyroidism Bipolar disorder PCP records--pt states she was taken off all her psychiatric meds Depression Anxiety Pancreatitis (Chronic ~2012) hx Medical History Limb alert care status right arm restriction. Nausea and vomiting after administration of anesthetic agent denies needing scop patch Neurogenic claudication due to lumbar spinal stenosis History of breast cancer 2015 s/p b/l mastectomy Schizoaffective disorder PCP records Glaucoma Stroke Amaurosis fugax 02/2021- small old infarct found on brain MRI (02/16/21)- reason for plavix Per [facility] discharge summary, to f/u with neuro and cardio outpatient (follows with Dr. Voss, ? neurology) Hypertension controlled, stable per pt Mood disorder Surgical History History of esophagogastroduodenoscopy (EGD) Hx of colonoscopy History of spinal fusion 10/21/21--spinal fusion T10-L2 Dr. Winston @ [facility] T11-L2 Grade 1 view, [place] 2, ETT 7.5. History of bilateral mastectomy right arm limb restriction History of ankle surgery right History of foot surgery left History of rotator cuff surgery bilat, X2 History of cholecystectomy Family History Other No family history of adverse response to anesthesia Social History Smoking Status: Never smoker Second Hand Exposure: No; Do You Dip or Chew Tobacco: No; Tobacco Cessation Education Requested by Patient: No Hx Alcohol Use: Yes Alcohol type: wine Hx Substance Use: No Preferred Language: Turkish Communication Ability: Effective Director Of It Operations Required: No Beliefs That Will Affect Care: None marital status: Current Living Situation: Spouse Other Information That Helps Us Care for You: No Feels Safe at Home: Yes Safety Concerns: Feels Safe At This Time Assistive Devices: Glasses and Walker Review of Systems Review of Systems: Knee pain and instability Physical Exam Physical Exam: weight 76 kg BMI 28 General: Elderly female who appears her stated age HEENT: NCAT, EOMI, PERRLA. Neck: Supple without bruits Heart: Regular rate and rhythm no murmurs Lungs: Breath sounds clear and present in all monae Abdomen: Flat soft nontender bowel sounds are positive Extremities: The right knee shows valgus deformity passive ranges of motion is 0 to 120 degrees with trace lateral laxity positive effusion and pain. Neurological and vascular: Intact Results & Data Results & Data Vital Signs (Past 12 Hours) blood pressure 128/80 Pulse 70
[~2023-10-22 10:02] MED LIST changes: -ACETAMINOPHEN 500 MG TAB PO SCH; -CeleBREX 200 MG CAP PO SCH; -GABAPENTIN 300 MG CAP PO SCH; -LR 15ML/HR IV SCH; +METOPROLOL SUCC 25MG EXT REL TAB PO PRN; +MIDAZOLAM HCL 1 MG/ML 2ML VIAL ONE; +ROPIVACAINE 0.5% 5 MG/ML 30 ML VIAL ONE; -VANCOMYCIN HCL 1,250 MG in SODIUM CHLORIDE 0.9% 250 ML IV SCH
[2023-10-22] MEDS: LR 500ML BOLUS, THEN 15ML/HR IV SCH (10:25)
[2023-10-22] MEDS: ACETAMINOPHEN 500 MG TAB PO SCH ×2 (10:27→14:24)
[2023-10-22] MEDS: GABAPENTIN 300 MG CAP PO SCH (10:28)
[2023-10-22] MEDS: FAMOTIDINE 20 MG TAB PO SCH (10:28)
[2023-10-22] MEDS: dexAMETHasone**PF** 10 MG/ML VIAL IV SCH (10:28)
[2023-10-22] MEDS: LR 60ML/HR IV SCH (10:28)
[2023-10-22] MEDS: METOCLOPRAMIDE HCL 10 MG TABLET PO SCH (10:28)
[2023-10-22] MEDS: oxyCODONE HCL 10 MG TABCR (OxyCONTIN) PO SCH (10:28)
[2023-10-22] MEDS: CeleBREX 200 MG CAP PO SCH ×2 (10:28→21:23)
[2023-10-22] MEDS ORDERED: PROPOFOL IV EMULSION 10 MG/ML 20 ML VIAL IV ONE (10:32)
[2023-10-22] MEDS ORDERED: ONDANSETRON INJ 2 MG/ML 2 ML VIAL ONE (10:32)
[2023-10-22] MEDS ORDERED: HYDROmorphone INJ 1 MG/ML SYRINGE IV PRN (10:53)
[2023-10-22] MEDS ORDERED: fentaNYL citrate PF 100 MCG/2 ML VIAL IV PRN (10:53)
[2023-10-22] MEDS ORDERED: ePHEDrine sulfate 50 MG/ML AMP IV PRN (10:53)
[2023-10-22] MEDS ORDERED: ONDANSETRON INJ 2 MG/ML 2 ML VIAL IV PRN ×2 (10:53→14:14)
[2023-10-22] MEDS ORDERED: ATROPINE SULFATE 0.1 MG/ML 10ML SYR IV PRN (10:53)
[2023-10-22] MEDS ORDERED: fentaNYL citrate PF 100 MCG/2 ML VIAL ONE ×2 (10:55→11:39)
[2023-10-22] MEDS: TRANEXAMIC ACID 1,000 MG **IV Pre-op IV SCH (10:55)
--- NOTE | 2023-10-22 11:06 | History & Physical Bridge Note ---
Date of Service October 22, 2023 History & Physical Bridge Note I have examined the patient, reviewed the History & Physical and in the interval since the performance of the History & Physical I have noted the following changes of clinical significance: no changes noted
[2023-10-22] MEDS: ceFAZolin 2000MG 2,000 MG/15 ML SYR IV SCH ×2 (11:09→17:52)
[2023-10-22] MEDS ORDERED: ePHEDrine sulfate 50 MG/ML AMP ONE (11:28)
[2023-10-22] MEDS ORDERED: LABETALOL HCL IV 5 MG/ML 20ML IV ONE (11:40)
[2023-10-22] MEDS: ORTHO JOINT ANESTHETIC ONE (11:46)
[2023-10-22] MEDS ORDERED: SODIUM CHLORIDE 0.9% PF INJ 10 ML VIAL ONE (11:59)
[2023-10-22] MEDS ORDERED: KETOROLAC 30 MG/ML VIAL ONE (12:00)
[2023-10-22] MEDS: TRANEXAMIC ACID 1,000 MG **IV Intra-op IV SCH (12:00)
[2023-10-22] MEDS ORDERED: METHOCARBAMOL 500 MG TABLET PO PRN ×2 (12:12→14:00)
[2023-10-22] MEDS: ROPIV 0.5% 246mg, Ketorolac 30mg, EPINEPHrine 0.5mg in NSS INFIL SCH (12:18)
[2023-10-22] MEDS ORDERED: oxyCODONE HCL IR 5 MG TAB (IMMEDIATE RELEASE) PO PRN (12:26)
--- NOTE | 2023-10-22 12:26 | Operative Report ---
Post Operative Report Pre & Post Diagnosis Operation Date: 10/22/23 11:10 Pre-Op Diagnosis: Right Knee Osteoarthritis Post-Op Diagnosis: Right Knee Osteoarthritis I identified the patient and participated in the time-out.: Yes Procedure right total knee replacement with patient's specific implants Operation Date: 10/22/23 11:10 <No data on this case meets the specified criteria> Surgeon Chapo Yo MD Ribbon Cutter Camilo Stephenson PA-C Estimated Blood Loss 150 Findings Consistent with Post-Op Diagnosis severe degenerative changes with large valgus deformity and bone loss of the lateral femoral condyle Specimens bone and cartilage fragments Complications none Indications components used: [employer] journey 2 posterior stabilized knee system: Femur size 4 with Oxinium coating, tibia size 3 x 15, patella size 32 oval Description of Procedure following satisfactory general anesthesia the patient was supine on the operating room table. The right lower extremity was prepared with ChloraPrep and draped sterilely. A surgical timeout was performed. A midline incision was made with a median parapatellar arthrotomy. The patient had been given Pref pressors because of the low blood pressure and her blood pressure spiked into the 170s. This caused an abnormal and excessive amount of bleeding. Hemostasis was eventually obtained. The knee showed the changes noted above. Attention was first turned to the patella. The patella was freehand cut and sized for a 32 button which enhanced exposure to the lateral side of the knee and relaxed the extensor mechanism. The cruciate ligaments were excised. The patient matched femoral block was applied. Femoral distal rotation and resection were setting completed. The 4-in-1 block was used to finish preparation of the femur. The tibial meniscal fragments were excised. The patient matched tibial block was applied. Tibial resection was completed. Soft tissue balancing was then completed both in flexion and extension. A trial reduction with the above- mentioned components was performed. This showed good tensioning and stability on the collateral ligaments from full extension to more than 115 degrees of flexion and the patella tracked well throughout. The trial components were removed. The capsule was prepared with the orthopedic cocktail. After irrigation and drying the components were cemented using Osbaldo Z be cement cementing the tibia first, femur second, and patella third. When the cemented hardened the knee was checked and showed similar stability and patellar tracking. The wound was irrigated with 500 cc of experience irrigation. A Hemovac drain was placed. The arthrotomy was closed with interrupted [id number] sutures of 1 Vicryl and a running suture of 0 V-Loc. The deeper subcutaneous tissues were closed with 0 V-Loc. The most superficial layer with 3 OV lock. Dermabond pernio and a negative pressure wound dressing were applied followed by compressive bandage. The patient was returned to her bed in stable condition. Camilo DOSHI was present and assisted throughout due to the complicated nature of this case. He help with preparation and set up, he music library assistant throughout. He assisted with hemostasis and exposure throughout the procedure. He also closed the capsular subcutaneous and skin layers and applied the postop dressing. I attest to the content of the Intraoperative Record and any orders documented therein. Any exceptions are noted below.
--- NOTE | 2023-10-22 12:26 | Post Operative Brief Note ---
Immediate Post Op Note Date of Surgery October 22, 2023 Pre & Post Diagnosis Operation Date: 10/22/23 11:10 Pre-Op Diagnosis: Right Knee Osteoarthritis Post-Op Diagnosis: Right Knee Osteoarthritis I identified the patient and participated in the time-out.: Yes Procedure Operation Date: 10/22/23 11:10 <No data on this case meets the specified criteria> Surgeon Chapo Yo MD [address] Camilo Stephenson PA-C Estimated Blood Loss 150 Findings Consistent with Post-Op Diagnosis Drains Hemovac Drain
--- NOTE | 2023-10-22 13:13 | Anesthesiology Progress Note ---
Date of Service October 22, 2023 Anesthesia Post Procedure Vital Signs Vital Signs: Temp Pulse Pulse Resp BP BP Pulse Ox 10/22/23 13:00 68 20 135/59 L 92 10/22/23 12:50 69 20 140/64 98 10/22/23 12:40 36.0 C L 69 19 131/57 L 95 10/22/23 10:22 37 C 72 20 161/76 H 97 O2 Del Method 10/22/23 13:00 Room Air 10/22/23 12:50 Room Air 10/22/23 12:40 Room Air 10/22/23 10:22 Room Air Pain Intensity Right Knee: Pain Intensity: 2 Transfer of Care Handoff Completed per policy Notes Mental Status: alert / awake / arousable and participated in evaluation Patient Amnestic to Procedure: Yes Nausea / Vomiting: adequately controlled Pain: adequately controlled Airway Patency, RR, SpO2: stable & adequate BP & HR: stable & adequate Hydration State: stable & adequate Anesthetic Complications: no major complications apparent and Pt Satisfied with anesthetic care
[2023-10-22] MEDS ORDERED: NALOXONE HCL 0.4 MG/1 ML VIAL/CARP IV PRN (14:14)
[2023-10-22] MEDS ORDERED: MAGNESIUM HYDROXIDE SUSP 30 ML UDC PO PRN (14:14)
[2023-10-22] MEDS ORDERED: METOCLOPRAMIDE HCL INJ 5 MG/ML 2 ML VIAL IV PRN (14:14)
[2023-10-22] MEDS ORDERED: bisacodyL 10 MG SUPP PR PRN (14:14)
[2023-10-22] MEDS: LEVOTHYROXINE SODIUM 100 MCG TABLET PO SCH (14:18)
[2023-10-22] MEDS: risperiDONE 1 MG TABLET PO SCH (14:18)
[2023-10-22] MEDS: SODIUM CHLORIDE 0.9% 1,000 ML IV SCH (14:22)
--- OUTSIDE RECORDS SUMMARY | 2023-10-22 14:48 | External Medical Summary | Continuity of Care Document ---
Author Name Unknown Organization [address] Address [address] [place], [place] [id number] Care Team Providers Care Education Associate Name Role Phone Leonie Dowling Primary Care Physician [phone] [facility]counter [id number] Date(s): 09/25/23 - 09/25/23 [facility] [address] [place] [address] [phone] Encounter Diagnosis Pre-op exam(Discharge Diagnosis) - 09/24/23 Discharge Disposition: Home or Self Care Attending Physician: MD Dowling Amy L Referring Physician: MD Dowling Amy L Allergies, Adverse Reactions, Alerts Substance Criticality Severity Reaction Reaction Severity Status clindamycin itchy rash Active Keflex throat tightened Act michael penicillin swelling of murdock ds and feet Active cephalosporins swelling Activ e Assessment and Plan Extracted from: Title:Preoperative H&P: Ortho Lower Ext * Author :MD Dowling Amy L Date:09/24/23 Impression and Plan Diagnosis Pre-op exam ([id number] Z01.818, Discharge, Medical). Condition: Stable. Pre-op H&P - her exam is normal & cardiology has already evaluated her. She is felt to be mild-mod risk, by their assessment. She is medically optimized for surgery. Will do addendum, once lab results are received. Immunizations Given and Recorded Vaccine Date Status Refusal Reason RSV Vaccine Unspecified 05/03/23 Recorded influenza virus vaccine, inactivated 02/24/23 Chester rded influenza virus vaccine, inactivated 02/08/22 Give n influenza virus vaccine, inactivated 03/26/20 Chester rded influenza virus vaccine, inactivated 04/30/19 Chester rded influenza virus vaccine, inactivated 02/22/15 Give n SARS COVID Vaccine Unspecified 02/24/23 Recorded pneumococcal 20-valent conjugate vaccine 03/17/22 Given zoster vaccine, inactivated 10/02/21 Recorded zoster vaccine, inactivated 03/13/21 Recorded SARS-CoV-2 (COVID-19) mRNA BNT-162b2 vax 10/02/21 Recorded SARS-CoV-2 (COVID-19) mRNA BNT-162b2 vax 1 08/26/20 Recorded SARS-CoV-2 (COVID-19) mRNA BNT-162b2 vax 2 08/05/20 Recorded SARS-CoV-2 (COVID-19) ChAdOx1 vaccine 03/13/21 Rec orded pneumococcal 23-valent vaccine 3 02/17/21 Recorded tetanus/diphtheria/pertuss, acel (Tdap) 02/22/15 G iven tetanus/diphtheria/pertuss, acel (Tdap) 02/11/15 R ecorded tetanus/diphtheria/pertuss, acel (Tdap) 10/12/95 R ecorded 1Result Comment: 2021-01-14: Historical information-source unspecified 2Result Comment: 2021-01-14: Historical information-source unspecified 3Result Comment: 2021-02-28: Historical information-source unspecified Medications amLODIPine 2.5 mg oral tablet Start: 02/20/23 6:08:00 PM EDT, 1 tab, PO, Daily, Disp# 90 tab, Refills: 3, [id number] Start Date: 02/20/23 Status: Ordered atorvastatin 10 mg oral tablet Start: 02/19/23 11:18:00 AM EDT, 0.5 tab, PO, Daily, Disp# 90 tab, Refills: 6, [id number] Start Date: 02/19/23 Status: Ordered clopidogrel 75 mg oral tablet Start: 08/27/23 9:21:00 PM EDT, 1 tab, PO, Daily, Disp# 90 tab, Refills: 1, Pharmacy: [id number] Start Date: 08/27/23 Status: Ordered levothyroxine 100 mcg (0.1 mg) oral tablet Start: 08/20/23 11:34:00 AM EDT, 1 tab, PO, Daily, Disp# 90 tab, Refills: 3, Pharmacy: [id number] Start Date: 08/20/23 Status: Ordered Lyrica 150 mg oral capsule Start: 02/19/23 10:51:00 AM EDT, 1 cap, PO, bid Start Date: 02/19/23 Status: Ordered methocarbamol 500 mg oral tablet TAKE 1 TABLET BY MOUTH 3 TIMES EVERY DAY NEEDED FOR SPASM Start Date: 09/21/23 Status: Ordered metoprolol succinate 25 mg oral tablet, extended release Start: 02/19/23 11:18:00 AM EDT, 1 tab, PO, qhs, Disp# 90 tab, Refills: 3, [id number] Start Date: 02/19/23 Status: Ordered oxyCODONE 5 mg oral tablet TAKE 1/2 TO 1 TABLET THREE TIMES A DAY NEEDED FOR SEVERE BREAKTHROUGH PAIN Start Date: 09/21/23 Status: Ordered pantoprazole 40 mg oral delayed release tablet Start: 06/25/23 4:42:00 PM EST, 1 tab, PO, Daily Start Date: 06/25/23 Status: Ordered risperiDONE 1 mg oral tablet Start: 08/20/23 11:34:00 AM EDT, 1 tab, PO, tid, Disp# 270 tab, Refills: 2, Pharmacy: [id number] Start Date: 08/20/23 Status: Ordered Tylenol 500 mg oral tablet Start: 07/03/23 12:55:00 PM EST, 2 tab, PO, q6h, PRN: as needed for pain Start Date: 07/03/23 Status: Ordered Mental Status 09/25/23 Barriers to Learning one year None evide nt Mandatory Health Literacy Documentation Yes Health Literacy Communication Barriers N ever Primary Language Mohawk Problem List Condition Confirmation Course Effective Dates Status H ealth Status Informant Patient has active power of sausage stringer for health care Confirmed Active Anemia Confirmed Active Anxiety Confirmed Active Bipolar Confirmed Active Bulimia Confirmed Active 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 Active Depression Confirmed Active Dyslipidemia Confirmed Active Atypical nevus of back Confirmed Active GERD 1 Confirmed Active Glaucoma 2 Confirmed Active Status post spinal surgery Confirmed Active Hx of cholecystectomy Confirmed Active Hx of cervical spine surgery Confirmed Active History of UTI Confirmed Active Hypertension Confirmed Active Hypothyroid Confirmed Active Breast cancer Confirmed Active Menopause Confirmed Active Myalgia Confirmed Active Osteoporosis Confirmed Active Restless legs syndrome Confirmed Active Schizoaffective disorder, unspecified Confirmed Active Weight disorder Confirmed Active 1patient states resolved with stopping the use of ibuprofen 2sees Dr Mar Diagnosis Diagnosis Type Effective Dates Health Status Clini mely Service Informant Pre-op exam Discharge Diagnosis 09/24/23 Non-Specified Procedures Procedure Date Related Diagnosis Body Site Status Colonoscopy 1 06/11/23 Completed EGD - esophagogastroduodenoscopy 2 06/11/23 Completed Fusion of thoracic spine 3 09/12/22 Completed Ankle X-ray 4 10/02/17 Completed Foot X-ray 5 10/02/17 Completed PET scan 6 02/14/16 Completed stereotactic guided biopsy l eft breast 7 09/21/15 Completed ultrasound guided biopsy right breast 09/21/15 Completed BILATERAL DIGITAL SCREENING MAMMOGRAM WITH cad 09/02/15 Completed Bone density scan 09/02/15 Complet ed Imaging 8 06/06/15 Completed Eye surgery 9 02/2015 Completed anal sphincter repair Com pleted back surgery Completed bilateral digital diagnostic mammogram Completed Bilateral mastectomy Comp leted lap cholecystectomy Compl eted left bunionectomy Complet ed retrovaginal fistula Comp leted right ankle pinning Compl eted right breast biopsy Compl eted Rotator cuff tear Complet ed tibial tendon recon. Comp leted 1diverticulae; non-bleeding int. hemorrhoids; next c-scope in 1 yr 2small hiatal hernia, mild inflammation gastric antrum - biopsied; continue Protonix 40mg 3UOC 41. severe posttraumatic degeneratice changes of the ankle mortise and to lesser extent in the hindfoot and midfoot. 2. Allowing for suspected osteopenia, no acute osseous injury. 51. No acute osseous injury. 2. Etensive degeneratice changes at the ankle, hindfoot, and hindfoot junction. 3. Mild degenerative changes of the first metatarsophalangeal joint. 61. There is no FDG-avid disease. 2. Bilateral mastectomies. A 6.6 x 2.7 cm subcutaneous fluid collection along the lateral right theright mastectomy favors a postoperative seroma. 3. No significant FDG uptake associated with the 2.5 cm stable left hepatic lobe lesion. Therefore,this is likely benign. 7Pathology from the left breast biopsy in the subareolar breast yielded an intraductal papilloma with usual ductal hyperplasia. Associated microcalcifications noted. Pathology from the biopsy of a solid mass in the 3:00 right breast yielded invasive ductal carcinoma, Boston grade 1 of 3. The pathology results are concordant with the imaging appearance. Surgical consultation is recommended for definitive treatment of the right breast cancer and for consideration of surgical excision in the left breast. 8chest one view 9Right eye cataract removal and glaucoma treatment Vital Signs Most recent to oldest [Reference Range]: 1 Patient Weight 93.3 kg (09/25/23 9:59 AM) Heart Rate 76 bpm (09/25/23 9:59 AM) Respiratory Rate 20 br/min (09/25/23 9:59 AM) Blood Pressure 130/82mmHg (09/25/23 9:59 AM) Cuff Pulse Pressure 48 mmHg (09/25/23 9:59 AM) BP Location # 1 Left Arm (09/25/23 9:59 AM) Social History Social History Type Response Smoking Status Never smoked cigaret isi Sex Female FCM Outpt Note * MD Dowling Amy L: PERFORM, MODIFY, MODIFY, MODIFY, MODIFY, SIGN, VERIFY Event Display: FCM Outpt Note Authored Date: [id number] Patient: BRAYAN DUNAWAY Age: 73 years Sex: Female : 1950 Associated Diagnoses: None Author: MD Dowling Amy L Chief Complaint For total right knee replacement - on 10/22/23. No personal or family hx of anesthesia reactions. Nohx of post-op bleeding or clotting. No hx of MRSA. Review of Systems Constitutional: No fever, No chills, No fatigue, No decreased activity. Eye: No recent visual problem, No visual disturbances. Ear/Nose/Mouth/Throat: No ear pain, No nasal congestion. Respiratory: No shortness of breath, No cough, No wheezing. Cardiovascular: No chest pain, No palpitations, No decreased exercise tolerance, No peripheral edema. Gastrointestinal: No nausea, No vomiting, No abdominal pain, No change in bowel habits. Genitourinary: No dysuria. Hematology/Lymphatics: Negative. Endocrine: Negative. Immunologic: Negative. Musculoskeletal: No joint pain. Integumentary: No rash. Neurologic: No dizziness, No headache. Psychiatric: No anxiety, No depression. All other systems are negative Health Status Allergies: Allergic Reactions (Selected) Severity Not Documented Cephalosporins- Swelling. Clindamycin- Itchy rash. Keflex- Throat tightened. Penicillin- Swelling of hands and feet.. Histories Family History: Heart attack Father Hyperlipidemia.. Mother Osteoporosis Mother Hypothyroidism. Mother Stroke Father . Social History Social & Psychosocial Habits Alcohol Comment: USAUDIT - C score = 0 - 11/27/2019 11:47 - MD Manuel, Daniel Jackson Exercise 04/16/2012 Risk Assessment: Regular exercise 04/16/2012 Times per week: 3-4 times/week Exercise type: Swimming, Walking, Weight lifting Substance Abuse 11/27/2019 Risk Assessment: Denies Substance Abuse Tobacco 04/16/2012 Risk Assessment: Denies Tobacco Use 12/31/2014 Use: Never smoker . Physical Examination General: Alert and oriented. Eye: Pupils are equal, round and reactive to light, Normal conjunctiva. HENT: Normocephalic, Tympanic membranes are clear, Oral mucosa is moist, No pharyngeal erythema. Neck: Supple, Non-tender, No carotid bruit, No lymphadenopathy, No thyromegaly. Respiratory: Lungs are clear to auscultation, Respirations are non-labored, Breath sounds are equal. Cardiovascular: Normal rate, Regular rhythm, No murmur. Gastrointestinal: Soft, Non-tender, Non-distended, Normal bowel sounds, No organomegaly. Vital Signs Integumentary: Warm, Dry. Neurologic: Alert, Oriented. Psychiatric: Cooperative, Appropriate mood & affect. Impression and Plan Diagnosis Pre-op exam ([id number] Z01.818, Discharge, Medical). Condition: Stable. Pre-op H&P - her exam is normal & cardiology has already evaluated her. She is felt to be mild-mod risk, by their assessment. She is medically optimized for surgery. Will do addendum, once lab results are received. Electronic Signature on File Electronically Reviewed/Signed by: Leonie Dowling MD Author Signature Dt/Tm:09/26/2023 08:41 PM [facility] [address], [facility] [address] [place] [address] [facility] Patient Care team information Care Team Personnel Name: DO Howard Franklin J Position: Physician - Family Med Member Role: Lifetime Relationship Address: Address: [address] [address] Name: MD Dowling Amy L Position: Physician - Family Med Member Role: Primary Care Provider Address: Address: [address] [place] [address] [address] [place] [address] [place] Name: MD Judith, Stefanie Carrillo Position: Physician - Surgery Oncology Member Role: Lifetime Relationship Address: Address: [address] [place] [address] [place] Care Team Related Persons Name: MILO DUNAWAY Address: home [address] [facility] [facility], [place] [id number]
--- OUTSIDE RECORDS SUMMARY | 2023-10-22 14:48 | External Medical Summary | Continuity of Care Document ---
Author Name Unknown Organization [address] Address [address] [place], [place] [id number] Care Team Providers Care Traffic Operations Engineer Name Role Phone Leonie Dowling Primary Care Physician [phone] [id number] Date(s): 06/29/23 - 06/29/[address], [address] [place] [address] [phone] Discharge Disposition: Home or Self Care Attending Physician: ROSALES Hamilton, Fabiola Sandra Allergies, Adverse Reactions, Alerts Substance Reaction Severity Status clindamycin itchy rash Active Keflex throat tightened Active penicillin swelling of hands and feet A ctive cephalosporins swelling Active Immunizations Given and Recorded Vaccine Date Status [...] amLODIPine 2.5 mg oral tablet Start: 02/20/23 18:08:00 EDT, 1 tab, PO, Daily, Disp# 90 tab, Refills: 3, [id number] Start Date: 02/20/23 Status: Ordered atorvastatin 10 mg oral tablet Start: 02/19/23 11:18:00 EDT, 0.5 tab, PO, Daily, Disp# 90 tab, Refills: 6, [id number] Start Date: 02/19/23 Status: Ordered clopidogrel 75 mg oral tablet Start: 02/20/23 16:38:00 EDT, 1 tab, PO, Daily, Disp# 90 tab, Refills: 1, Pharmacy: [id number] Start Date: 02/20/23 Status: Ordered levothyroxine 100 mcg (0.1 mg) oral tablet Start: 08/08/22 13:25:00 EDT, See Instructions, Disp# 90 tab, Refills: 3, TAKE 1 TABLET BY MOUTH daily on 6 days of week, 2 tab on one day of week, [id number] Start Date: 08/08/22 Status: Ordered Lyrica 150 mg oral capsule Start: 02/19/23 10:51:00 EDT, 1 cap, PO, bid Start Date: 02/19/23 Status: Ordered metoprolol succinate 25 mg oral tablet, extended release Start: 02/19/23 11:18:00 EDT, 1 tab, PO, qhs, Disp# 90 tab, Refills: 3, [id number] Start Date: 02/19/23 Status: Ordered oxyCODONE 5 mg oral tablet Start: 06/29/23 9:18:00 EST, See Instructions, Disp# 60 tab, Refills: 0, TAKE 1/2 TO 1 TABLET THREETIMES A DAY NEEDED FOR SEVERE BREAKTHROUGH PAIN x 20 days, Stop: 07/18/23 9:15:00 EST, [id number] Start Date: 06/29/23 Stop Date: 07/18/23 Status: Ordered pantoprazole 40 mg oral delayed release tablet Start: 06/25/23 16:42:00 EST, 1 tab, PO, Daily Start Date: 06/25/23 Status: Ordered risperiDONE 1 mg oral tablet Start: 11/20/22 15:55:00 EDT, See Instructions, Disp# 270 tab, Refills: 2, TAKE 1 TABLET BY MOUTH 3TIMES A DAY, Pharmacy: [id number] Start Date: 11/20/22 Status: Ordered Mental Status 06/29/23 Barriers to Learning one year None evide nt Mandatory Health Literacy Documentation Yes Health Literacy Communication Barriers N ever Primary Language Taiwanese Problem List Condition Confirmation Course Effective Dates Status H ealth Status Informant Patient has active power of workers compensation attorney for health care Confirmed Active Anemia Confirmed [...] the use of ibuprofen 2sees Dr Mar Procedures Procedure Date Related Diagnosis Body Site [...] WITH cad 09/02/15 Completed Bone density scan 4/21/16 Complet ed Imaging 8 06/06/15 Completed Eye [...] 3:00 right breast yielded invasive ductal carcinoma, [place] grade 1 of 3. The pathology results are concordant with the imaging appearance. Surgical consultation is recommended for definitive treatment of the right breast cancer and for consideration of surgical excision in the left breast. 8chest one view 9Right eye cataract removal and glaucoma treatment Vital Signs Most recent to oldest [Reference Range]: 1 Temperature [36.5-37.9 DegC] 36.6 DegC (06/29/23 8:57 AM) Heart Rate 78 bpm (06/29/23 8:57 AM) Respiratory Rate 16 br/min (06/29/23 8:57 AM) Blood Pressure 130/80mmHg (06/29/23 8:57 AM) Cuff Pulse Pressure 50 mmHg (06/29/23 8:57 AM) BP Location # 1 Left Arm, Manual (2/16/24 8:57 AM) Social History Social History Type Response Smoking Status Never smoked cigaret isi Sex Female Patient Care team information Care Team Personnel Name: DO Howard Franklin J Position: Physician - Family Med Member Role: Lifetime Relationship Address: Address: [address] [facility] [address] [place] [address] [place] Name: MD Dowling Amy L Position: Physician - Family Med Member Role: Primary Care Provider Address: Address: [address] [facility] [address] [place] [address] [place] Name: MD Wong Kristine L Position: Physician - Surgery Oncology Member Role: Lifetime Relationship Address: Address: [address] [place] [address] Care Team Related Persons Name: MILO DUNAWAY Address: home [address] [facility] [place], [place] [id number]
--- OUTSIDE RECORDS SUMMARY | 2023-10-22 14:48 | External Medical Summary | Continuity of Care Document ---
Author Name Unknown Organization [facility] [address] [facility] Kajal Address [address] [place], [place] [id number] Care Team Providers Care Ward Clerk Name Role Phone Leonie Dowling Primary Care Physician [phone] [facility] [id number] Date(s): 09/21/23 - 09/21/23 [facility] [address] [facility] [place] [address] [phone] Encounter Diagnosis Pre-op testing(Discharge Diagnosis) - 09/21/23 History of TIA (transient ischemic attack)(Discharge Diagnosis) - 09/21/23 HTN (hypertension)(Discharge Diagnosis) - 09/21/23 HLD (hyperlipidemia)(Discharge Diagnosis) - 09/21/23 Discharge Disposition: Home or Self Care Attending Physician: DO Voss Jason D Referring Physician: VINEET Molina Sarah A Allergies, Adverse Reactions, Alerts Substance Reaction Severity Status clindamycin itchy rash Active Keflex throat tightened Active penicillin swelling of hands and feet A ctive cephalosporins swelling Active Assessment and Plan Extracted from: Title:Cardiology Office Visit Note Author:VINEET Allen rd, Sarah A Date:09/21/23 Impression: 1. Hx of stroke without residual deficits 2. Dyslipidemia 3. 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 Dobutamine stress test 10/2021 without inducible ischemia 5. 6-week event monitor without evidence of atrial fibrillation, declined loop recorder, monitoring with Apple Watch 6. No significant stenosis of her carotids on CTA 2021. 7. Echo with normal LVF, no evidence of shunt. Ms. Dunaway is doing well overall. Her blood pressure is controlled. Her Apple Watch has not alerted her to any A-fiband thus far she has not exhibited any evidence of it since we started watching for it after her TIA. She has not had any further TIA symptoms. She continues on statin therapy. Her lipids in April were at goal. She is not having any concerning anginal symptoms. She can ascend a flight of stairs without any difficulty and achieve 4 METS. She has a low to moderate risk for cardiac complication perioperatively, 6% class II by RCRI. She does not need furthercardiac testing prior to her surgery. Her EKG demonstrates normal sinus rhythm without any evidence of ischemic changes. She return to clinic in 6 months Immunizations Given and Recorded Vaccine Date Status [...] Daily, Disp# 90 tab, Refills: 3, Pharmacy: [facility]/pharmacy #[id number] Start Date: 02/20/23 Status: Ordered atorvastatin 10 mg oral tablet Start: 02/19/23 11:18:00 EDT, 0.5 tab, PO, Daily, Disp# 90 tab, Refills: 6, Pharmacy: [facility]/pharmacy #[id number] Start Date: 02/19/23 Status: Ordered clopidogrel 75 mg oral tablet Start: 08/27/23 21:21:00 EDT, 1 tab, PO, Daily, Disp# 90 tab, Refills: 1, Pharmacy: [facility] STORE [id number] Start Date: 08/27/23 Status: Ordered levothyroxine 100 mcg (0.1 mg) oral tablet Start: 08/20/23 11:34:00 EDT, 1 tab, PO, Daily, Disp# 90 tab, Refills: 3, Pharmacy: [facility] [place] [id number] Start Date: 08/20/23 Status: Ordered Lyrica 150 [...] qhs, Disp# 90 tab, Refills: 3, Pharmacy: [facility]/pharmacy #[id number] Start Date: 02/19/23 Status: Ordered oxyCODONE 5 mg oral tablet TAKE 1/2 TO 1 TABLET THREE TIMES A DAY NEEDED FOR SEVERE BREAKTHROUGH PAIN Start Date: 09/21/23 Status: Ordered pantoprazole 40 mg oral delayed release tablet Start: 06/25/23 16:42:00 EST, 1 tab, PO, Daily Start Date: 06/25/23 Status: Ordered risperiDONE 1 mg oral tablet Start: 08/20/23 11:34:00 EDT, 1 tab, PO, tid, Disp# 270 tab, Refills: 2, Pharmacy: [facility] [place] [place] [id number] Start Date: 08/20/23 Status: Ordered Tylenol 500 mg oral tablet Start: 07/03/23 12:55:00 EST, 2 tab, PO, q6h, PRN: as needed for pain Start Date: 07/03/23 Status: Ordered Mental Status 09/21/23 Barriers to Learning one year None evide nt Mandatory Health Literacy Documentation Yes Health Literacy Communication Barriers N ever Primary Language Peruvian Problem List Condition Confirmation Course Effective Dates Status H ealth Status Informant Patient has active power of trademark attorney for health care Confirmed Active Anemia [...] Diagnosis Diagnosis Type Effective Dates Health Status Cl inical Service Informant History of TIA (transient ischemic attack) Discharge Diagnosis 09/21/23 Non-Specified Pre-op testing Discharge Diagnosis 09/21/23 Non-Specified HTN (hypertension) Discharge Diagnosis 09/21/23 Non-Specified HLD (hyperlipidemia) Discharge Diagnosis 09/21/23 Non-Specified Procedures Procedure Date Related Diagnosis Body [...] 3:00 right breast yielded invasive ductal carcinoma, [place] grade 1 of 3. The pathology results are concordant with the imaging appearance. Surgical consultation is recommended for definitive treatment of the right breast cancer and for consideration of surgical excision in the left breast. 8chest one view 9Right eye cataract removal and glaucoma treatment Vital Signs Most recent to oldest [Reference Range]: 1 Patient Weight 92.8 kg (09/21/23 9:55 AM) Heart Rate 70 bpm (09/21/23 9:55 AM) Respiratory Rate 18 br/min (09/21/23 9:55 AM) Blood Pressure 128/80mmHg (09/21/23 9:55 AM) BP Location # 1 Left Arm (09/21/23 9:55 AM) Social History Social History Type Response Smoking Status Never smoked cigaret isi Sex Female Cardiology Outpatient Note * VINEET Molina Sarah A: PERFORM, MODIFY Event Display: Cardiology Outpt Note Authored Date: Primary Care Provider MD Josey, Leonie Carrillo Referring Provider VINEET Molina Sarah A Chief Complaint pr- op Right TKA - denies chest pain/ tightness, palpitations, flutters or heart racing, or SOB denies dizziness or lightheadedness, no edema, History of Present Illness Ms. Dunaway presents for preop evaluation in preparation for knee surgery. Up until a month ago she was walking a half mile in the house doing laps in her house. She can ascend a flight of stairs without sob or chest pain, doesn't need a break on te stairs. No sob, no chest pain, no palpitations, no alerts on her Apple watch. No edema, no unexplained weight gain. She still has a lot of back pain. Review of Systems All other systems reviewed and negative except as discussed in the HPI Physical Exam Vitals & Measurements HR:70(Monitored) RR:18 BP:128/80 SpO2:98% WT:92.800kg(Dosing) WT:92.8kg Physical Examination General: Alert and oriented, No acute distress. Respiratory: Lungs are clear to auscultation, Respirations are non-labored. Cardiovascular: Normal rate, Regular rhythm, No murmur, No edema, no carotid bruits to auscultation bilaterally. Integumentary: Warm, Dry, [place] Neurologic: Alert, Oriented. Cognition and Speech: Speech clear and coherent. Psychiatric: Cooperative, Appropriate mood & affect. Assessment/Plan Impression: 1. Hx of stroke without residual deficits 2. Dyslipidemia 3. 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 Dobutamine stress test 10/2021 without inducible ischemia 5. 6-week event monitor without evidence of atrial fibrillation, declined loop recorder, monitoring with Apple Watch 6. No significant stenosis of her carotids on CTA 2021. 7. Echo with normal LVF, no evidence of shunt. Ms. Dunaway is doing well overall. Her blood pressure is controlled. Her Apple Watch has not alerted her to any A-fiband thus far she has not exhibited any evidence of it since we started watching for it after her TIA. She has not had any further TIA symptoms. She continues on statin therapy. Her lipids in April were at goal. She is not having any concerning anginal symptoms. She can ascend a flight of stairs without any difficulty and achieve 4 METS. She has a low to moderate risk for cardiac complication perioperatively, 6% class II by RCRI. She does not need furthercardiac testing prior to her surgery. Her EKG demonstrates normal sinus rhythm without any evidence of ischemic changes. She return to clinic in 6 months Problem List/Past Medical History Ongoing Anemia Anxiety Atypical nevus of back Bipolar Breast cancer Bulimia Depression Dyslipidemia GERD Glaucoma History of UTI Hx of cervical spine surgery Hx of cholecystectomy Hypertension Hypothyroid Ischemic cerebrovascular accident (CVA) of frontal lobe Menopause Myalgia Osteoporosis Patient has active power of trademark attorney for health care Restless legs syndrome Schizoaffective disorder, unspecified Status post spinal surgery TIA involving carotid artery Weight disorder Historical Accident due to mechanical fall without injury Acute Pancreatitis Acute right ankle pain. Arthritis Epistaxis Fecal incontinence Impacted cerumen Medicare annual wellness visit, subsequent Nasal fracture NECK PAIN Palpitations Pre-op exam Rotator cuff tear Routine General Medical Examination at a [facility] TINNITUS Procedure/Surgical History Colonoscopy| Service Date: 06/11/2023EGD - esophagogastroduodenoscopy| Service Date: 06/11/2023Fusion of thoracic spine| Service Date: 3Ankle X-ray| Service Date: 10/02/2017Foot X-ray| Service Date: 10/02/2017PET scan| Service Date: 02/14/2016stereotactic guided biopsyleft breast| Service Date: 09/21/2015ultrasound guided biopsy right breast| Service Date: 09/21/2015Bone density scan| Service Date: 09/02/2015BILATERAL DIGITAL SCREENING MAMMOGRAM WITH cad|Service Date: 09/02/2015Imaging| Service Date: 06/06/2015Eye surgery| Service Date: 02/2015retrovaginal fistulatibial tendon recon.lap cholecystectomyanal sphincter repairright breast biopsyright ankle pinningleft bunionectomyback surgerybilateral digital diagnostic mammogramBilateral mastectomyRotator cuff tear Medications acetaminophen(Tylenol 500 mg oral tablet), 1000 mg= 2 tab, PO, q6h, PRN amLODIPine(amLODIPine 2.5 mg oral tablet), 2.5 mg= 1 tab, PO, Daily, 3 refills atorvastatin(atorvastatin 10 mg oral tablet), 5 mg= 0.5 tab, PO, Daily, 6 refills clopidogrel(clopidogrel 75 mg oral tablet), 1 tab, PO, Daily levothyroxine(levothyroxine 100 mcg (0.1 mg) oral tablet), 1 tab, PO, Daily methocarbamol(methocarbamol 500 mg oral tablet) metoprolol(metoprolol succinate 25 mg oral tablet, extended release), 25 mg= 1 tab, PO, qhs, 3 refills oxyCODONE(oxyCODONE 5 mg oral tablet) pantoprazole(pantoprazole 40 mg oral delayed release tablet), 40 mg= 1 tab, PO, Daily pregabalin(Lyrica 150 mg oral capsule), 150 mg= 1 cap, PO, bid risperiDONE(risperiDONE 1 mg oral tablet), 1 tab, PO, tid Allergies Keflexthroat tightened cephalosporinsswelling clindamycinitchy rash penicillinswelling of hands and feet Social History Smoking Status Never smoked cigarettes Alcohol - Comments: USAUDIT - C score = 0 Exercise - Regular exercise Times per week:3-4 times/week Exercise type:Walking, Swimming, Weight lifting Home/Environment Lives with:Spouse - Comments: Single family home Substance Abuse - Denies Substance Abuse Tobacco - Denies Tobacco Use Use:Never smoker Family History Heart attack: Father. Hyperlipidemia..: Mother. Hypothyroidism.: Mother. Osteoporosis: Mother. Stroke: Father. Health Status Family Member(s) Sister: History is negative Brother: History is unknown Electronic Signature on File CC: Leonie Dowling MD [address] [facility] [address] [facility] [address] Electronically Reviewed/Signed by: VINEET Nina Author Signature Dt/Tm:09/21/2023 10:27 AM [facility] Electronically Reviewed/Signed by: VINEET Nina Cosigner Signature Dt/Tm: 09/21/2023 10:33 AM [facility] SAG Patient Care team information Care Team Personnel Name: DO Howard Franklin J Position: Physician - Family Med Member Role: Lifetime Relationship Address: Address: [address] [facility] [address] [place] [address] [place] Name: MD Dowling Amy L Position: Physician - Family Med Member Role: Primary Care Provider Address: Address: [address] [facility] [address] [place] [address] [place] Name: MD Wong Kristine L Position: Physician - Surgery Oncology Member Role: Lifetime Relationship Address: Address: [address] [facility] [address] [place] [address] Care Team Related Persons Name: MILO DUNAWAY Address: home [address] [place] [phone]"
--- OUTSIDE RECORDS SUMMARY | 2023-10-22 14:48 | External Medical Summary | Continuity of Care Document ---
Author Name Unknown Organization [facility] [place] [id number] [address] [place] [phone] Care Team Providers Care Heavy Line Technician Name Role Phone Leonie Dowling Primary Care Physician [phone] Encounter [facility] [id number] Date(s): 07/03/23 - 07/03/23 [facility] [address] [place] [address] Medical [facility] [address] [address] [place] [phone] Encounter Diagnosis Low back pain(Discharge Diagnosis) - 07/03/23 Bilateral leg pain(Discharge Diagnosis) - 07/03/23 Discharge Disposition: Home or Self Care Attending Physician: DO Leo Stephanie Marie Allergies, Adverse Reactions, Alerts Substance Reaction Severity [...] Daily, Disp# 90 tab, Refills: 3, Pharmacy: [facility]/pharmacy #[id number] Start Date: 02/20/23 Status: Ordered atorvastatin 10 mg oral tablet Start: 02/19/23 11:18:00 EDT, 0.5 tab, PO, Daily, Disp# 90 tab, Refills: 6, Pharmacy: [facility]/pharmacy #[id number] Start Date: 02/19/23 Status: Ordered clopidogrel 75 mg oral tablet Start: 02/20/23 16:38:00 EDT, 1 tab, PO, Daily, Disp# 90 tab, Refills: 1, Pharmacy: [facility] [id number] Start Date: 02/20/23 Status: Ordered levothyroxine 100 mcg (0.1 mg) oral tablet Start: 08/08/22 13:25:00 EDT, See Instructions, Disp# 90 tab, Refills: 3, TAKE 1 TABLET BY MOUTH daily on 6 days of week, 2 tab on one day of week, Pharmacy: [facility]/pharmacy #[id number] Start Date: 08/08/22 Status: Ordered Lyrica 150 mg oral capsule Start: 02/19/23 10:51:00 EDT, 1 cap, PO, bid Start Date: 02/19/23 Status: Ordered metoprolol succinate 25 mg oral tablet, extended release Start: 02/19/23 11:18:00 EDT, 1 tab, PO, qhs, Disp# 90 tab, Refills: 3, Pharmacy: [facility]/pharmacy #[id number] Start Date: 02/19/23 Status: Ordered oxyCODONE 5 mg oral tablet Start: 06/29/23 9:18:00 EST, See Instructions, Disp# 60 tab, Refills: 0, TAKE 1/2 TO 1 TABLET THREETIMES A DAY NEEDED FOR SEVERE BREAKTHROUGH PAIN x 20 days, Stop: 07/18/23 9:15:00 EST, Pharmacy:[facility]/pharmacy #[id number] Start Date: 06/29/23 Stop Date: 07/18/23 Status: Ordered pantoprazole 40 mg oral delayed release tablet Start: 06/25/23 16:42:00 EST, 1 tab, PO, Daily Start Date: 06/25/23 Status: Ordered risperiDONE 1 mg oral tablet Start: 11/20/22 15:55:00 EDT, See Instructions, Disp# 270 tab, Refills: 2, TAKE 1 TABLET BY MOUTH 3TIMES A DAY, Pharmacy: [facility]ORE [id number] Start Date: 11/20/22 Status: Ordered Tylenol 500 mg oral tablet Start: 07/03/23 12:55:00 EST, 2 tab, PO, q6h, PRN: as needed for pain Start Date: 07/03/23 Status: Ordered Mental Status 07/03/23 Barriers to Learning one year None evide nt Mandatory Health Literacy Documentation Yes Health Literacy Communication Barriers N ever Primary Language South African Problem List Condition Confirmation Course Effective Dates Status H ealth Status Informant Patient has active power of title attorney for health care Confirmed Active Anemia [...] Dates Health Status Cl inical Service Informant Low back pain Discharge Diagnosis 07/03/23 Bilateral leg pain Discharge Diagnosis 07/03/23 Procedures Procedure Date Related Diagnosis Body Site [...] 3:00 right breast yielded invasive ductal carcinoma, [place] grade 1 of 3. The pathology results are concordant with the imaging appearance. Surgical consultation is recommended for definitive treatment of the right breast cancer and for consideration of surgical excision in the left breast. 8chest one view 9Right eye cataract removal and glaucoma treatment Vital Signs Most recent to oldest [Reference Range]: 1 Patient Weight 88.7 kg (2/20/24 12:57 PM) Temperature [36.5-37.9 DegC] 37.0 DegC (07/03/23 12:57 PM) Heart Rate 78 bpm (07/03/23 12:57 PM) Respiratory Rate 20 br/min (07/03/23 12:57 PM) Blood Pressure 118/84mmHg (07/03/23 12:57 PM) Cuff Pulse Pressure 34 mmHg (07/03/23 12:57 PM) Social History Social History Type Response Smoking Status Never smoked cigaret isi Sex Female Patient Care team information Care Team Personnel Name: DO Howard Franklin J Position: Physician - Family Med Member Role: Lifetime Relationship Address: Address: [address] [facility] [address] [place] [address] [place] Name: MD Josey, Leonie Carrillo Position: Physician - Family Med Member Role: Primary Care Provider Address: Address: [address] [facility] [address] [place] [address] [place] Name: MD Judith, Stefanie Carrillo Position: Physician - Surgery Oncology Member Role: Lifetime Relationship Address: Address: [address] [facility] [address] [place] [address] Care Team Related Persons Name: MILO DUNAWAY Address: home [address] [place], [place] [phone]
--- OUTSIDE RECORDS SUMMARY | 2023-10-22 14:49 | External Medical Summary | Continuity of Care Document ---
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 Name Role Phone Leonie Dowling Primary Care Physician [phone] Encounter [id number] Date(s): 06/25/23 - 06/25/23 [facility] [address], [address] [place] [address] [phone] Encounter Diagnosis Bilateral leg pain(Discharge Diagnosis) - 06/25/23 Bilateral leg weakness(Discharge Diagnosis) - 06/25/23 Slurred speech(Discharge Diagnosis) - 06/25/23 Paresthesias(Discharge Diagnosis) - 06/25/23 Discharge Disposition: Home or Self Care Attending Physician: ROSALES Hamilton Jessica A Allergies, Adverse Reactions, Alerts Substance Reaction Severity Status clindamycin itchy rash Active Keflex throat tightened Active penicillin swelling of hands and feet A ctive cephalosporins swelling Active Assessment and Plan Extracted from: Title:weakness, pain, slurred speech Author:Rochelle briones PA-C, Jessica A Date:06/25/23 1.Bilateral leg pain Brayan has hadchronic bilateral lower extremitypain and weakness that has gotten progressively worse in the last week and is uncontrolled. She is now having difficulty ambulatingwith obvious weakness on exam today. Goal is resolution of symptoms. She is also describing some upper extremity weakness, has right- sided paresthesias and speech isslow to slurred on examination. Given history I did recommendstat evaluation at the local [facility] ER. Her drove her to the appointment todayand would prefer to be transferred by him to the ER. Declinedambulance transport. Etiology is unclear, but differentialsare including, but not limited to:TIA/CVA,lumbar radiculopathy,cauda equina, PMR, statin myopathy, polymyositis,UTI, other etiology. I did contact [facility] ER and spoke withnursingregarding patient'shistory. Will fax a copy of today's office note to them as well. 2.Bilateral leg weakness As above. 3.Slurred speech As above. 4.Paresthesias As above. Time spent on pre-visit plannin minute Face to face time spent w/ patient:25 minutes Time spent documenting pertinent clinical information into the EMR:11 minutes Total time: 37 minutes Immunizations Given and Recorded Vaccine Date Status [...] Daily, Disp# 90 tab, Refills: 3, [id number] Start Date: 02/20/23 Status: Ordered atorvastatin 10 mg oral tablet Start: 02/19/23 11:18:00 EDT, 0.5 tab, PO, Daily, Disp# 90 tab, Refills: 6, [id number] Start Date: 02/19/23 Status: Ordered clopidogrel 75 mg oral tablet Start: 02/20/23 16:38:00 EDT, 1 tab, PO, Daily, Disp# 90 tab, Refills: 1, Pharmacy: [facility] [id number] Start Date: 02/20/23 Status: Ordered levothyroxine 100 mcg (0.1 mg) oral tablet Start: 08/08/22 13:25:00 EDT, See Instructions, Disp# 90 tab, Refills: 3, TAKE 1 TABLET BY MOUTH daily on 6 days of week, 2 tab on one day of week, [id number] Start Date: 08/08/22 Status: Ordered Lyrica 150 mg oral capsule Start: 02/19/23 10:51:00 EDT, 1 cap, PO, bid Start Date: 02/19/23 Status: Ordered metoprolol succinate 25 mg oral tablet, extended release Start: 02/19/23 11:18:00 EDT, 1 tab, PO, qhs, Disp# 90 tab, Refills: 3, [id number] Start Date: 02/19/23 Status: Ordered pantoprazole 40 mg oral delayed release tablet Start: 06/25/23 16:42:00 EST, 1 tab, PO, Daily Start Date: 06/25/23 Status: Ordered risperiDONE 1 mg oral tablet Start: 11/20/22 15:55:00 EDT, See Instructions, Disp# 270 tab, Refills: 2, TAKE 1 TABLET BY MOUTH 3TIMES A DAY, Pharmacy: [facility] [id number] Start Date: 11/20/22 Status: Ordered Mental Status 06/25/23 Barriers to Learning one year None evide nt Mandatory Health Literacy Documentation Yes Health Literacy Communication Barriers N ever Primary Language Greek Problem List Condition Confirmation Course Effective Dates Status H ealth Status Informant Patient has active power of floatman for health care Confirmed Active Anemia Confirmed [...] Diagnosis Diagnosis Type Effective Dates Health Status Clinical Service Informant Bilateral leg weakness Discharge Diagnosis 06/25/23 Slurred speech Discharge Diagnosis 06/25/23 Paresthesias Discharge Diagnosis 06/25/23 Bilateral leg pain Discharge Diagnosis 06/25/23 Procedures Procedure Date Related Diagnosis Body Site [...] 3:00 right breast yielded invasive ductal carcinoma, [place] grade 1 of 3. The pathology results are concordant with the imaging appearance. Surgical consultation is recommended for definitive treatment of the right breast cancer and for consideration of surgical excision in the left breast. 8chest one view 9Right eye cataract removal and glaucoma treatment Vital Signs Most recent to oldest [Reference Range]: 1 Temperature [36.5-37.9 DegC] 36.7 DegC (06/25/23 4:39 PM) Heart Rate 80 bpm (06/25/23 4:39 PM) Respiratory Rate 20 br/min (06/25/23 4:39 PM) Blood Pressure 106/68mmHg (06/25/23 4:39 PM) Cuff Pulse Pressure 38 mmHg (06/25/23 4:39 PM) BP Location # 1 Left Arm, Manual (06/25/23 4:39 PM) Social History Social History Type Response Smoking Status Never smoked cigaret isi Sex Female [facility] Note * ROSALES Hamilton, Fabiola Sandra: PERFORM Event Display: [facility] Note Authored Date: [id number] Chief Complaint Worsening pain in legs History of Present Illness "I had my last spinal surgery in September. It's the 4th one I've had. I'm fused from T7 down." Brayandeann spine surgery in September 2022atseem to do well. She had gone to physical therapy and washaving improvement in pain and ambulation. She was able to walk half of a mile with a cane. She then started to develop increased pain at bilateral lower back and buttocks radiating tobilateral t highs x 3 months ago, but pain got much worse x 1 week ago. "That is when things started to go bad. I lost function in my legs and have severe pain." She is now having difficulty walking even with a walker. Hassignificantaching to sharp stabbing painin lower back, hips and down legs. This is worsewhen changing positions and at nighttime. Has also had bilateral leg weakness andas mentioned difficultywalking. Also, in the last week upon questioning she admits that she hashad newurinary incontinence with position changes. Has also had intermittent slurred speech,upper extremity weaknessandright-sided paresthesias. + stiffness and sluggishness. She did see her orthopedist last week and they recommended she get an updated MRI of her back, but was told she cannot have one for another 1 monthas she had2 iron infusions in April 2023. Was told she needs to wait3 months afteriron infusions to get an MRI. She is scheduled to see the [facility] pain clinic, but not until September2023. Notes that she did have leftover gabapentin, tramadoland oxycodone from her last back surgery and has been taking these for the lastweek. Feels gabapentin and tramadol did not help, but oxycodonehas helped somewhat. Has noticed that speech is more slurred after she takes oxycodone, but last dose [id number] today. Pain is a 9/10 today. Has not taken any other new medications. She does take a statinfor hyperlipidemia and has a history of a TIA. Has chronic RLS and current symptoms are much more severe. She does take Lyrica 150 mg twice daily. No fever, chills, nausea, vomiting, diarrhea, constipation, dysuria, joint swelling, joint erythema, joint warmth, chest pain, shortness of breath, palpitations, tachycardia, falls, acute confusionor facial droop. Review of Systems ROS:All other systems negative, except HPI. Physical Exam Vitals & Measurements T:36.7C HR:80(Monitored) RR:20 BP:106/68 SpO2:97% PHQ2 Data(Data Documented on:06/25/2023 16:39) Emotional health assessment NEGATIVE General: Alert and oriented, tearfuland appears uncomfortable with attempting to change positions. Speech is noticeablyslurredand slow at times. Eye: Pupils are equal, round and reactive to light, Extraocular movements are intact, Normal conjunctiva. HENT: Normocephalic. TMs clear bilaterally. Posterior pharynx is pink. Uvula rises midline. No drooling, stridor or cyanosis. Neck: Supple, No lymphadenopathy, No thyromegaly. Respiratory: Lungs are clear to auscultation, Respirations are non-labored, Breath sounds are equal, Symmetrical chest wall expansion. Cardiovascular: Normal rate, Regular rhythm, No murmur, No gallop, Good pulses equal in all extremities, Normal peripheral perfusion. Trace lower extremity edema bilaterally. Abdomen: Normoactive BS x 4. Soft. No tenderness, palpable masses or organomegaly. Lymphatics: No submandibular, anterior or posterior cervical adenopathy palpable. Musculoskeletal Antalgic gait. Ambulating with the use of a rollator walker. Has difficultychanging from sitting to standing position. 5/5 strength at bilateral upper extremities. 4/5 strength of bilaterallower extremities withright leg being weaker than the left. + diffuse bilateral lower back tenderness. Integumentary: Warm, [place], No pallor. Neurologic: Alert, Oriented, Cranial Nerves II-XII are grossly intact. Facial movements are full and symmetric. No facial droop. No pronator drift. Cognition and Speech: Oriented, Speech clear and coherent, Functional cognition intact. Psychiatric: Cooperative, Appropriate mood & affect, Normal judgment, Nonsuicidal. Assessment/Plan 1.Bilateral leg pain Brayan has hadchronic bilateral lower extremitypain and weakness that has gotten progressivelyworse in the last week and is uncontrolled. She is now having difficulty ambulatingwith obviousweakness on exam today. Goal is resolution of symptoms. She is also describing some upper extremity weakness, has right-sided paresthesias and speech isslow to slurred on examination. Given history I did recommendstat evaluation at the local [facility] ER. Her drove her to the appointment todayand would prefer to be transferred by him to the ER. Declinedambulance transport. Etiology is unclear, but differentialsare including, but not limited to:TIA/CVA,lumbar radiculopathy,cauda equina, PMR, statin myopathy, polymyositis,UTI, other etiology. I did contact [facility] ER and spoke withnursingregarding patient'shistory. Will fax a copy of today's office note to them as well. 2.Bilateral leg weakness As above. 3.Slurred speech As above. 4.Paresthesias As above. 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 Arthritis Epistaxis Fecal incontinence Impacted cerumen Medicare annual wellness visit, subsequent Nasal fracture NECK PAIN Palpitations Pre-op exam Rotator cuff tear Routine General Medical Examination at a Health Care Facility TINNITUS Procedure/Surgical History Colonoscopy (06/11/2023)EGD - esophagogastroduodenoscopy (06/11/2023)Fusion of thoracic spine (09/12/2022)Ankle X-ray (10/02/2017)Foot X-ray (10/02/2017)PET scan (02/14/2016)stereotactic guided biopsy left breast (09/21/2015)ultrasound guided biopsy right breast (09/21/2015)Bone density scan (09/02/2015)BILATERAL DIGITAL SCREENING MAMMOGRAM WITH cad (09/02/2015)Imaging (06/06/2015)Eye surgery (02/2015)retrovaginal fistulatibial tendon recon.lap cholec ystectomyanal sphincter repairright breast biopsyright ankle pinningleft bunionectomyback surgerybilateral digital diagnostic mammogramBilateral mastectomyRotator cuff tear Medications amLODIPine(amLODIPine 2.5 mg oral tablet), 2.5 mg= 1 tab, PO, Daily, 3 refills atorvastatin(atorvastatin 10 mg oral tablet), 5 mg= 0.5 tab, PO, Daily, 6 refills clopidogrel(clopidogrel 75 mg oral tablet), 1 tab, PO, Daily levothyroxine(levothyroxine 100 mcg (0.1 mg) oral tablet), See Instructions, 3 refills metoprolol(metoprolol succinate 25 mg oral tablet, extended release), 25 mg= 1 tab, PO, qhs, 3 refills pantoprazole(pantoprazole 40 mg oral delayed release tablet), 40 mg= 1 tab, PO, Daily pregabalin(Lyrica 150 mg oral capsule), 150 mg= 1 cap, PO, bid risperiDONE(risperiDONE 1 mg oral tablet), See Instructions Allergies Keflexthroat tightened cephalosporinsswelling clindamycinitchy rash penicillinswelling [...] History is negative Brother: History is unknown Immunizations Vaccine Date Status RSV Vaccine Unspecified 05/03/2023 Recorded influenza virus vaccine, inactivated 02/24/2023 Recorded SARS COVID Vaccine Unspecified 02/24/2023 Recorded pneumococcal 20-valent conjugate vaccine 03/17/2022 Given influenza virus vaccine, inactivated 02/08/2022 Given zoster vaccine, inactivated 10/02/2021 Recorded SARS-CoV-2 (COVID-19) mRNA BNT-162b2 vax 10/02/2021 Recorded zoster vaccine, inactivated 03/13/2021 Recorded SARS-CoV-2 (COVID-19) ChAdOx1 vaccine 03/13/2021 Recorded pneumococcal 23-valent vaccine 02/17/2021 Recorded Comments : 2021-02-28: Historical information-source unspecified SARS-CoV-2 (COVID-19) mRNA BNT-162b2 vax 08/26/2020 Recorded Comments : 2021-01-14: Historical information-source unspecified SARS-CoV-2 (COVID-19) mRNA BNT-162b2 vax 08/05/2020 Recorded Comments : 2021-01-14: Historical information-source unspecified influenza virus vaccine, inactivated 03/26/2020 Recorded influenza virus vaccine, inactivated 04/30/2019 Recorded influenza virus vaccine, inactivated 02/22/2015 Given tetanus/diphtheria/pertuss, acel (Tdap) 02/22/2015 Given tetanus/diphtheria/pertuss, acel (Tdap) 02/11/2015 Recorded tetanus/diphtheria/pertuss, acel (Tdap) 10/12/1995 Recorded Recommendations Health Maintenance Pending(in the next year) OverDue Medicare Annual Wellness Visit due03/17/23and every 1year Due Adult Social Determinants of Health Screening due06/25/23Unknown Frequency Due In Future Adult Influenza Vaccine not due until11/11/23and every 1year Falls Plan of Care not due until12/15/23and every 1year Body Mass Index not due until05/11/24and every Satisfied(in the past 1 year) Satisfied Adult Influenza Vaccine on02/24/23.Satisfied by TOMMIE Correa, Tati Body Mass Index on03/30/23.Satisfied by JACKELYN Fink Joy Lipid Screening on05/09/23.Satisfied by Contributor_system, [employer] Patient Care team information Care Team Personnel Name: DO Howard Franklin J Position: Physician - Family Med Member Role: Lifetime Relationship Address: Address: [address] [place] [address] [place] Name: MD Dowling Amy L Position: Physician - Family Med Member Role: Primary Care Provider Address: Address: [address] [place] [address] [place] Name: MD Judith, Stefanie Carrillo Position: Physician - Surgery Oncology Member Role: Lifetime Relationship Address: Address: [address] [place] [address] [place] Care Team Related Persons Name: MILO DUNAWAY Address: home [address], [place] [id number]
[2023-10-22] MEDS ORDERED: METOPROLOL SUCC 25MG EXT REL TAB PO SCH (21:00)
[2023-10-22] MEDS ORDERED: PREGABALIN 150 MG CAP PO SCH (21:00)
[2023-10-22] MEDS ORDERED: amLODIPine BESYLATE 5 MG TAB PO SCH (21:00)
[2023-10-22] MEDS: ASPIRIN 81 MG ECTAB PO SCH (21:26)
[2023-10-22] MEDS: DOCUSATE SODIUM 100 MG CAP PO SCH (21:34)
[2023-10-22] MEDS: SENNA 8.6 MG TAB PO SCH (21:34)
[2023-10-23] MEDS: oxyCODONE HCL IR 5 MG TAB (IMMEDIATE RELEASE) PO PRN (02:16)
[2023-10-23 06:44] LABS: Hematocrit (blood only) 37.1 % (37.0-47.0); Hemoglobin 12.4 g/dl (12.0-16.0); Mean Corpuscular Hemoglobin 30.5 pg (25.0-34.0); Mean Corpuscular Hgb Conc 33.4 g/dL (32.0-36.0); Mean Corpuscular Volume 91.4 fL (80.0-100.0); Mean Platelet Volume 9.7 fL (9.4-12.4); Platelet Count 232 K/uL (130-400); RDW Coefficient of Variation 13.7 % (11.5-14.5); Red Blood Count 4.06 M/uL (4.20-5.40); White Blood Count 12.35 K/ul (4.8-10.8)
[2023-10-23 07:09] LABS: Calcium 9.3 mg/dl (8.6-10.3); Creatinine Clr Calc Pharmacy 71.5 ml/min; Est GFR (African American) 96.6 ml/min; Est GFR (Non-African American) 83.3 ml/min; Potassium 4.9 mmol/L (3.5-5.1)
[2023-10-23] MEDS: MULTIVITAMIN TAB PO SCH (07:12)
--- NOTE | 2023-10-23 07:30 | Orthopedic Progress Note ---
Date of Service October 23, 2023 Assessment & Plan (1) DJD (degenerative joint disease) of knee: Plan: patient is stable and doing well. Today we did review her medication protocol with the use of the ice compression unit and explained home physical therapy. Provided that she passes her PT assessment this morning she will be discharged home. [facility] who will begin home and home therapy on Sunday follow-up in the office in 2 weeks time Admission and Anticipated Discharge Date Admission Date: October 22, 2023 Subjective Postoperative day #1 right total knee replacement Patient offers no complaints this morning. She is awake and oriented. Her pain is well-controlled. She was able to ambulate to the bathroom with minimal assist multiple times on the evening before. She feels that she is ready for discharge to home. Physical Exam Physical Exam: Patient is examined at the bedside Her Tai bandage is clean dry and intact. Her thigh and calf are soft and nontender. She is neurologically and vascularly intact. Hemovac drainage 300 cc total 125 cc/shift Results & Data Vital Signs (Past 12 Hours) Vital Signs Temp Pulse Resp BP Pulse Ox O2 Del Method 10/23/23 04:00 36.4 C L 78 16 126/77 97 Room Air 10/23/23 00:00 36.3 C L 74 16 115/71 95 Room Air 10/22/23 19:57 36.4 C L 73 16 132/72 98 Room Air Laboratory Results hemoglobin 12.3
[2023-10-23] MEDS ORDERED: CLOPIDOGREL BISULFATE 75 MG TAB PO SCH (09:00)
[2023-10-23] MEDS ORDERED: PANTOprazole 40 MG TAB PO SCH (09:00)
[2023-10-28] MEDS ORDERED: LEVOTHYROXINE SODIUM 200 MCG TABLET PO SCH (06:30)
== END 2023-10-23 14:46 | disposition home health service (06) ==
LOC: ASU 10:02 → 3W 10:02